=== PATIENT | female | born 1975 | race Caucasian/White ===

== ENCOUNTER 2019-03-20 19:09 | Emergency (ER) | payer SELFPAY ==
[2019-03-20 19:11] VITALS: BP 91/70; PULSE 97; RESP 16; TEMP 36.8; O2SAT 99; BMI 25.7
--- NOTE | 2019-03-20 21:08 | EKG12_ITS ---
Test Reason : CHEST OTHER Blood Pressure : / mmHG Vent. Rate : 069 BPM Atrial Rate : 069 BPM P-R Int : 152 ms QRS Dur : 084 ms QT Int : 412 ms P-R-T Axes : 059 064 067 degrees QTc Int : 441 ms Normal sinus rhythm Possible Left atrial enlargement Borderline ECG Confirmed by TRENA HUTTON, SANGEETHA ([id number]), content editor ARTEMIO GROVES ([id number]) on 03/23/2019 10:02:09 AM Referred By: RUBIO Confirmed By:SANGEETHA ALBRECHT MD
--- NOTE | 2019-03-20 21:08 | RAD_ITS ---
HISTORY:SUDDEN ONSET LEFT RIB PAIN STARTED LAST NIGHTNKI SUDDEN ONSET LEFT RIB PAIN STARTED LAST NIGHTN EXAMINATION/TECHNIQUE: XR Ribs Unilateral W/ PA Chest Min 3 Views: Left COMPARISON: December 31, 2015 FINDINGS: LINES/DEVICES: None. LUNGS: No consolidation, edema or effusion. No pneumothorax. MEDIASTINUM AND CARDIOVASCULAR STRUCTURES: Cardiac silhouette not enlarged. Central airways and mediastinal contour are unremarkable. RIBS AND OSSEOUS STRUCTURES: Unremarkable. No evidence of displaced rib fractures. RAD/Ribs Uni Min 3V w/PA Chest IMPRESSION: No acute pathology at 2217 Reported and signed by: Dimple Quiroz DO Electronically Signed: Dimple Quiroz DO at 22:16 EST Tel , Service support ,
--- NOTE | 2019-03-20 21:09 | ED.VIS.GEN ---
History of Present Illness Chief Complaint: Chest Other Narrative: Patient is a 43-year-old female who presents with left-sided rib pain. It began last night. Her pain is worse when she lifts her arm or rotates her torso. She is not short of breath. She does not recall any fall trauma injury strain. No rash. She otherwise denies recent illness. No fevers cough congestion rhinorrhea. No abdominal pain vomiting diarrhea. Past Medical History - Allergies and Home Meds Allergies/Adverse Reactions: Allergies hydrocodone bitartrate [From Vicodin] Allergy (Verified 03/20/19 19:11) Rash latex Allergy (Verified 03/20/19 19:11) Rash adhesive Adverse Reaction (Verified 03/20/19 19:11) Rash ondansetron HCl [From Zofran (as hydrochloride)] Adverse Reaction (Verified 03/20/19 19:11) headache Primary Care Physician: Care Physician,No Primary [Primary Care Provider] - Past Medical History: - - TIA, seizure disorder Surgical History: no surgical history Smoking Status: Current every day smoker - Family History Maternal Family History: Reports: No pertinent history, - - The patientwas adopted Paternal Family History: Reports: No pertinent history Review of Systems All systems negative except as indicated General: Denies: Fever ENT: Denies: Rhinorrhea Cardiovascular: Reports: Chest pain Respiratory: Denies: Dyspnea, Cough Gastrointestinal: Denies: Abdominal pain, Nausea, Vomiting Genitourinary: Denies: Dysuria Musculoskeletal: Denies: Myalgias, Arthralgias Skin: Denies: Rash Neurological: Denies: Headache Allergy: Denies: Uticaria Physical Exam Vital Signs/Narrative: Vital Signs Temp Pulse Resp BP Pulse Ox 03/20/19 19:11 98.2 F 97 16 91/70 99 Inital Vital Signs reviewed: Yes General: Well nourished, Well developed Head: Normocephalic Eyes: EOMI ENT: Moist mucous membranes Neck: Supple Cardiovascular: Regular rate, Regular rhythm Respiratory: No distress, CTA bilaterally, Chest tenderness - Easily reproducible left lower chest and left posterior chest tenderness no rash no crepitus, lungs are clear with equal breath sounds Abdomen: Soft, Nontender Skin: Normal color Neurological: Alert Psychological: Normal affect Diagnostic/Tx/Re-eval - Medical Decision Making EKG shows normal sinus rhythm at a rate of 69, no acute ischemic changes or dysrhythmia. Rib series with a PA chest is normal on my review, radiology read pending. Patient's pain seems to be musculoskeletal in etiology her pain appears to be from chest wall. She was advised on supportive care. She understands to return for new or worsening symptoms. All questions answered at bedside and the patient was discharged. ED Disposition - Plan for ED Patient: Disposition: Home or Assisted Living Diagnosis: Chest wall pain Instructions: Chest Wall Strain Prescriptions: Naproxen [Naprosyn] 500 mg PO BID #20 tab Prescription Printed Referrals: Care Physician,No Primary [Primary Care Provider] -
[2019-03-20 21:14] VITALS: RESP 16
[2019-03-20 21:52] VITALS: BP 100/69; PULSE 66; RESP 16; O2SAT 95
== END 2019-03-20 21:50 | disposition home or self-care (01) ==
PROVIDERS: Emergency Provider Emergency Medicine
DX: R07.89 Other chest pain (principal); G40.909 Epilepsy, unspecified, not intractable, without status epilepticus; F17.200 Nicotine dependence, unspecified, uncomplicated; Z86.73 Personal history of transient ischemic attack (TIA), and cerebral infarction without residual deficits
CPT/HCPCS: 71101; 93005; 99282

== ENCOUNTER → 2019-08-27 08:46 | Outpatient (CLI) | payer MEDICAID, SELFPAY ==
--- NOTE | 2019-08-27 08:47 | RAD_ITS ---
STUDY: X-RAY - LUMBAR SPINE REASON FOR EXAM: Female, 44 years old. Leg pain, no trauma TECHNIQUE: 4 view(s) of the lumbar spine were obtained including flexion-extension views. COMPARISON: None FINDINGS: There is an exaggerated lumbar lordosis. There is no substantial scoliosis. There is a normal alignment of the vertebrae. Normal vertebral bodies and endplates. Normal disc space heights. The soft tissue structures are unremarkable. RAD/L/S Spine Bending Flex/Ext IMPRESSION: Exaggerated lumbar lordosis. Electronically Signed: Jamar Marshall, at 10:10 EDT , Service support ,
--- NOTE | 2019-08-27 08:47 | RAD_ITS ---
STUDY: X-RAY - LEFT KNEE REASON FOR EXAM: Female, 44 years old. Knee pain, no trauma TECHNIQUE: 4 view(s) of the knee. COMPARISON: None. FINDINGS: Normal visualized distal femur. Normal visualized proximal tibia and fibula. Normal proximal tibiofibular articulation. There is mild degenerative arthrosis of the medial femorotibial compartment. Normal lateral femorotibial compartment. Normal patellofemoral articulation. Joint effusion RAD/Knee 4 or More Views IMPRESSION: Degenerative arthrosis. Joint effusion. Electronically Signed: Jamar Marshall, at 10:08 EDT , Service support ,
--- OUTSIDE RECORDS SUMMARY | 2020-01-09 08:17 | XMS RPT_ITS | CCD ---
:1975 External Reference #:[id number] Author Organization [facility] Care Team Providers Name Role Phone HOUSE OB Unavailable Unavailable HOUSE OB Unavailable Unavailable Shree Hodges Unavailable Unavailable Kathi VARGAS (POT[employer]O PANCAKE FRIER) Unavailable Unavailable Kathi VARGAS (POTATO PANCAKE FRIER) Unavailable Unavailable CEBUL III, A Unavailable Unavailable Kathi VARGAS (POTATO PANCAKE FRIER) Unavailable Unavailable CEBUL III, A Unavailable Unavailable CEBUL III, A Unavailable Unavailable KING (PA) Unavailable Unavailable SOPHY Unavailable Unavailable KING (PA) Unavailable Unavailable GURM, S. Unavailable Unavailable SEABOLT Unavailable Unavailable CEBUL, A III Unavailable Unavailable CEBUL, A III Unavailable Unavailable JEREZ, J Unavailable Unavailable CEBUL, A III Unavailable Unavailable Allergies Reported Allergen Reaction(s) Severity Date of Onset Location acetaminophen / HYDROcodone [facility] 02-02-[address] - [facility] Translations: [ [facility] HYDROCODONE-ACETAMINOPHEN] Adhesive Tape Translations: [facility] 11-02-[address] - [facility] [ ADHESIVE TAPE (ROSINS)] [facility] Latex Translations: [ AO 11-02-2013 [facility] LATEX] [place] [facility] ondansetron Translations: [ AO 07-24-2011 - [facility] ONDANSETRON HCL (PF)] [place] simvastatin Translations: [ AO 03-28-2015 - [facility] SIMVASTATIN] [place] Problems Active Problems Category Problem Name Status Date Location Nausea and vomiting Vomiting, unspecified Active 09-30-2016 - [facility] (0000 0) Unclassified Unknown / UNK(Unknown) Active 09-24-2016 - [facility] (0000 0) Past or Other Problems Category Problem Name Status Date Location Abdominal pain Right upper quadrant Completed 09-30-2016 - [facility] pain [place] (0000 0) Other gastrointestinal Diarrhea, Completed 09-30-2016 - [facility] disorders unspecified [place] (0000 0) Other injuries and Unspecified injury Completed 01-03-2017 - [facility] conditions due to of right lower leg, [facility] ([id number]) external causes initial encounter Unclassified ABD PAIN / NO DX 09-24-2016 - [facility] (000 00) Results Result Name Value Range Unit Interpretation Flag Date Location mri brain w/ + w/o contrast on 2020-01-07 MRI BRAIN W/ + W/O ORIGINAL Normal 01-07-2020 [facility] CONTRAST Procedure: MR Brain with and without intravenous contrast [facility] ([place]) ([id number]) Clinical: Numbness and tingl ing down arms and back, intermittent facial droop and dysarthria, hx TIA Comparison: MRI brain 07/23/2013, 07/20/2011, and CT head Technique: MRI examination o f the brain was obtained utilizing the following sequences: Sagittal and axial T1-weighted, axial T2 weighted FLAIR diffusion with ADC mapping, post contrast axial, and postc ontrast 3-D FSPGR axial, sag ittal, and coronal images. The patient received 14 mL of MultiHance intravenously without complication. Findings: Parenchyma: No acute hemorrh age, infarction, mass, or abnormal enhancement is seen. The hadley-white matter junctions are maintained. There are no space occupying intra-axial masses or extra-axial fluid c ollections . Stable punctate hyperintensities on FLAIR are identified in the subcortical, periventricular, deep white matter. Diagnostic considerations include mild chronic microvascular white matter is chemic disease, chronic migr misael, and the sequela of a remote infectious, inflammatory, or vascular insult in the appropriate clinical setting. Ventricles: No ventricular e nlargement or ventricular effacement. 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 Orbits: Normal. Major intracranial flow voids: Preserved. Paranasal sinuses: Trace muc osal thickening of the posterior RIGHT ethmoid sinus. Mastoids and middle ears: Clear. Bones: Normal. Extracranial soft tissues: Normal. Additional comment: Normal. Impression: 1. No acute intracranial pathology. 2. Stable scattered hyperint ensities on FLAIR located within the subcortical, periventricular, and deep white matter with diagnostic considerations including mild chronic microvascular ischemic disease, migraines, and the sequela of a remote infectious, inflammatory, or vascular insult. Interpreted By: Satish Chávez MD Preliminary Report By: Satish Chávez MD Electronically Signed By: Satish Chávez MD Dictated Date: 01/07/2020 10:44:33 AM Prelim Date: 01/07/2020 10:44:33 AM Sign Date: 01/07/2020 10:52:39 AM Ordering Provider:Yared Nolasco ct spine cervical w/o contrast on 2020-01-06 CT SPINE CERVICAL ORIGINAL Normal 01-06-2020 [facility] Vericept W/O CONTRAST CT SPINE CERVICAL W/O CONTRAST [facility] ([place]) ([id number]) CLINICAL STATEMENT: pain, left arm paresthesias. TECHNIQUE: Multiple-row detector helica l CT examination of the cervical spine without IV contrast. Axial, sagittal, and coronal reconstructed images. This exam was performed acco rding to our departmental dose optimization program, and includes the following measures where applicable: automated exposure control, adjustment of the mAs and/or kVp accord ing to patient size and/or exam, and an iterative reconstr uction algorithm. COMPARISON: CT cervical spine 09/10/2019. FINDINGS: No acute fracture or traumat ic malalignment. The atlantodental and atlantoaxial intervals are preserved. There is no prevertebral soft tissue swelling. Mild degenerative changes. M ultiple lucencies throughout spine are unchanged from prior exams and likely degenerative in nature. The lung apices are unremarkable. IMPRESSION: No change from recent exams. It should be noted that CT c ervical spine is poor sensitivity for paresthesias and chronic cervical pain. Further evaluation with nonemergent MRI of the cervical spine may be considered if there is significant clinical concern. I have personally reviewed t he images of this examination and agree with the resident's findings and interpretation. Interpreted By: Russell Tran DO Preliminary Report By: Wing Riley DO Electronically Signed By: Russell Tran DO Dictated Date: 01/05/2020 10:29:17 PM Prelim Date: 01/05/2020 10:33:49 PM Sign Date: 01/05/2020 10:49:50 PM Ordering Provider:Lee Roajs ct head or brain w/o contrast on 2020-01-06 CT HEAD OR BRAIN ORIGINAL Normal 01-06-2020 [facility] Vericept W/O CONTRAST CT HEAD OR BRAIN W/O CONTRAST [facility] ([place] ([id number]) CLINICAL STATEMENT: INJURY. TECHNIQUE: Axial CT images f rom skull base to vertex without IV contrast. This exam was performed according to our departmental dose optimization program, and includes the following measures where appli cable: automated exposure co ntrol, adjustment of the mAs and/or kVp according to patient size and/or exam, and an iterative reconstruction algorithm. COMPARISON: 09/10/2019.. FINDINGS: There is no acute intracranial hemorrhage, mass, mass effect or abnormal extra-axial fluid collection. There is no CT evidence of acute infarct. The ventricles are normal. The skull base and calvarium demonstrate no abnormality. The visualized paranasal sinuses are clear. Included mastoid air cells are clear. IMPRESSION: No acute intracranial abnormality. Interpreted By: Russell Tran DO Preliminary Report By: Russell Tran DO Electronically Signed By: Russell Tran DO Dictated Date: 01/05/2020 10:29:36 PM Prelim Date: 01/05/2020 10:29:36 PM Sign Date: 01/05/2020 10:30:03 PM Ordering Provider:Lee Rojas xr chest 1 view on 2020-01-05 XR CHEST 1 VIEW ORIGINAL Normal 01-05-2020 [facility] PORT[facility] UPRIGHT CHEST [facility] ([place]) ([id number]) TIME: 2018 CLINICAL STATEMENT: pain. COMPARISON: PA and lateral chest 09/10/2019. FINDINGS: The cardiomediastinal contou rs are normal. There is atelectasis and elevation of the LEFT hemidiaphragm. No focal consolidation, pleural effusion, or pneumothorax. No visualized fractures. IMPRESSION: Basilar atelectasis and elev ation of LEFT hemidiaphragm. Otherwise no acute cardiopulmonary findings. I have personally reviewed t he images of this examination and agree with the resident's findings and interpretation. Interpreted By: Russell Tran DO Preliminary Report By: Wing Riley DO Electronically Signed By: Rsusell Tran DO Dictated Date: 01/05/2020 8:26:19 PM Prelim Date: 01/05/2020 8:27:04 PM Sign Date: 01/05/2020 8:35:55 PM Ordering Provider:Lee Rojas trophs on 2019-12-23 4 Troponin I High <2.50 0.00-34.00 Normal 01-05-2020 [facility] Sensitivity ([facility]) [facility] ([place]) ([id number]) Comment: Performed By: #### UA, UAMIC AO #### [address] [address] cbc on 2020-01-05 Erythrocyte distribution 13.1 11.5-15.5 % Normal 01-04 [facility] width (RBC) [Ratio] [facility] ([place]) ([id number]) Comment: Performed By: #### UA, UAMIC AO #### [address] [address] Hematocrit (Bld) [Volume 38.3 34.0-46.0 % Normal 01-04 [facility] fraction] ([place]) (0000 0) Comment: Performed By: #### UA, UAMIC AO #### [place] [id number] Hemoglobin (Bld) 13.1 12.0-16.0 G/dL Normal 01-05-2020 [facility] [Mass/Vol] [facility] ([place]) ([id number]) Comment: Performed By: #### UA, UAMIC AO #### [address] [address] MCH (RBC) [Entitic mass] 32.4 27.0-33.0 pg Normal 01-04 [facility] ([place] (0000 0) Comment: Performed By: #### UA, UAMIC AO #### [address] [address] MCHC (RBC) [Mass/Vol] 34.3 32.0-36.0 G/dL Normal 01-05-20 20 [facility] ([place] (0000 0) Comment: Performed By: #### UA, UAMIC AO #### [address] [address] MCV (RBC) [Entitic vol] 94.5 80.0-99.0 fL Normal 2019 [facility] ([place] (0000 0) Comment: Performed By: #### UA, UAMIC AO #### [address] [address] Platelet mean volume 9.5 6.6-10.5 fL Normal 0 [facility] (d) [Entitic vol] ([place]) ([id number]) Comment: Performed By: #### UA, UAMIC AO #### [address] [address] Platelets (Bld) [#/Vol] 199 150-450 10 3/mcL Normal 2019 [facility] ([place] ([id number]) Comment: Performed By: #### UA, UAMIC AO #### [address] [address] RBC (Bld) [#/Vol] 4.05 4.10-5.30 10 6/mcL Low 01-05-2020 [facility] ([place]) (0000 0) Comment: Performed By: #### UA, UAMIC AO #### [address] [address] WBC (Bld) [#/Vol] 6.00 4.50-10.80 10 3/mcL Normal 01-05-2020 [facility] ([place]) ([id number]) Comment: Performed By: #### UA, UAMIC AO #### [address] [address] bmp on 2020-01-05 Calcium [Mass/Vol] 9.3 8.4-10.1 mg/dL Normal 01-05-2020 [facility] ([place] (0000 0) Comment: Result Comment: Note - New Reference Range in effect 19 Performed By: #### UA, UAMIC AO #### [address] [address] Chloride [Moles/Vol] 109 98-110 mEq/L Normal 0 [facility] ([place] (0000 0) Comment: Performed By: #### UA, UAMIC AO #### [address] [address] CO2 [Moles/Vol] 26 22-32 mEq/L Normal 01-05-2020 [facility] ([place]) ([id number]) Comment: Performed By: #### UA, UAMIC AO #### [address] [address] Creatinine [Mass/Vol] 0.74 0.50-1.20 mg/dL Normal 01-05-20 [facility] ([place]) ([id number]) Comment: Performed By: #### UA, UAMIC AO #### [address] [address] Electrolyte Balance 8.0 4.0-15.0 mEq/L Normal 01-05-2020 [facility] ([place]) (0000 0) Comment: Performed By: #### UA, UAMIC AO #### [address] [address] Glucose [Mass/Vol] 114 70-110 mg/dL High 01-05-2020 [facility] ([place] ([id number]) Comment: Performed By: #### UA, UAMIC AO #### [address] [address] Potassium [Moles/Vol] 3.6 3.5-5.0 mEq/L Normal 01-05-20 [facility] ([place] (0000 0) Comment: Performed By: #### UA, UAMIC AO #### [address] [address] Sodium [Moles/Vol] 143 136-145 mEq/L Normal 01-05-2020 [facility] ([place] ([id number]) Comment: Performed By: #### UA, UAMIC AO #### [address] [address] Urea nitrogen [Mass/Vol] 12.0 8.0-22.0 mg/dL Normal 01-04 [facility] ([place]) ([id number]) Comment: Performed By: #### UA, UAMIC AO #### [address] [address] Urea nitrogen/Creatinine 16.2 10.0-22.0 ratio Normal 01-04 [facility] [Mass ratio] [facility] ([place]) ([id number]) Comment: Performed By: #### UA, UAMIC AO #### [address] [address] .neuabs on Neutrophils (Bld) 2.30 2.25-8.10 10 3/mcL Normal 01-05-2020 [facility] [#/Vol] [facility] ([place]) ([id number]) Comment: Performed By: #### UA, UAMIC AO #### [facility] [address] [place] [address] .gfr on 2020-01-05 GFR >60 Normal 0 [facility] ([place]) ([id number]) Comment: Result Comment: GFR Population mean for Afri can Samoan, Non- Americans Ages 20-29 = 116 mL/min/1.73 sq.m. Ages 30-39 = 107 mL/min/1.73 sq.m. Ages 40-49 = 99 mL/min/1.73 sq.m. Ages 50-59 = 93 mL/min/1.73 sq.m. Ages 60-69 = 85 mL/min/1.73 sq.m. Ages 70+ = 75 mL/min/1.73 sq .m. Chronic Kidney Disease: Less than 60 mL/min/1.73 square meters End Stage Renal Disease: Les s than 15 mL/min/1.73 square meters Performed By: #### UA, UAMIC AO #### [facility] [address] [place] [address] GFR Non- >60 Normal 01-04 [facility] ([place] ([id number]) Comment: Result Comment: GFR Population mean for Afri can Samoan, Non- Americans Ages 20-29 = 116 mL/min/1.73 sq.m. Ages 30-39 = 107 mL/min/1.73 sq.m. Ages 40-49 = 99 mL/min/1.73 sq.m. Ages 50-59 = 93 mL/min/1.73 sq.m. Ages 60-69 = 85 mL/min/1.73 sq.m. Ages 70+ = 75 mL/min/1.73 sq .m. Chronic Kidney Disease: Less than 60 mL/min/1.73 square meters End Stage Renal Disease: Les s than 15 mL/min/1.73 square meters Performed By: #### UA, UAMIC AO #### [address] [address] .auto diff on 01-04 Ammonia (P) [Mass/Vol] 0.60 0.09-1.40 10 3/mcL Normal 01-04-2 020 [facility] ([place] ([id number]) Comment: Performed By: #### UA UAMIC AO #### [address] [address] Basophils (Bld) 0.10 0.00-0.27 10 3/mcL Normal 01-05-2020 [facility] [#/Vol] [facility] ([place] ([id number]) Comment: Performed By: #### UA, UAMIC AO #### [address] [address] Basophils/100 WBC (Bld) 1.0 0.0-2.5 % Normal 2019 [facility] [place] (0000 0) Comment: Performed By: #### UA UAMIC AO #### [address] [address] Eosinophils (Bld) 0.20 0.00-0.65 10 3/mcL Normal 01-05-2020 [facility] [#/Vol] [facility] ([place] ([address]) Comment: Performed By: #### UA, UAMIC AO #### [address] [address] Eosinophils/100 WBC (Bld) 3.0 0.0-6.0 % Normal 12-22 [facility] ([place] (0000 0) Comment: Performed By: #### UA, UAMIC AO #### [address] [address] Lymphocytes (Bld) 2.80 0.90-4.32 10 3/mcL Normal 01-05-2020 [facility] [#/Vol] [facility] ([place] ([id number]) Comment: Performed By: #### UA, UAMIC AO #### [address] [address] Lymphocytes/100 WBC (Bld) 46.9 20.0-40.0 % High 12-22 [facility] ([place] (0000 0) Comment: Performed By: #### UA, UAMIC AO #### [facility] [address] [place] [address] Monocytes/100 WBC (Bld) 9.8 2.0-13.0 % Normal 2019 [facility] ([place] (0000 0) Comment: Performed By: #### UA, UAMIC AO #### [facility] [address] [place] [address] Neutrophils/100 WBC (Bld) 39.3 50.0-75.0 % Low 12-22 [facility] ([place] (0000 0) Comment: Performed By: #### UA, UAMIC AO #### [facility] [address] [place] [address] xr abdomen series w/chest 1 view on 2019-12-22 XR ABDOMEN SERIES ORIGINAL Normal 12-22-2019 [facility] W/CHEST 1 VIEW XR ABDOMEN SERIES W/CHEST 1 VIEW [facility] ([place] ([id number]) CLINICAL STATEMENT: Abdominal pain, distention, nausea x3 da ys COMPARISON: CT abdomen/pelvis 02/16/2019 FINDINGS: CHEST: The cardiomediastinal contours are normal. There is no consolidation, vascular congestion, pleural effusion, or pneumothorax. ABDOMEN: Small segment in th e midabdomen measures up to 3.5 cm, there is also a dilated segment of bowel in the LEFT upper quadrant measuring up to 3.4 cm. Visceral shadows are normal. RIGHT upper quadr ant surgical clips are noted . There are no renal calculi or dystrophic calcifications. No pneumoperitoneum. IMPRESSION: Segments of small bowel are dilated measuring up to 3.5 cm, this could represent partial or early small bowel obstruction. I have personally reviewed t he images of this examination and agree with the resident's findings and interpretation. Interpreted By: Wild Stewart MD Preliminary Report By: Sarah Nazario DO Electronically Signed By: Wild Stewart MD Dictated Date: 12/22/2019 7:15:24 PM Prelim Date: 12/22/2019 7:16:49 PM Sign Date: 12/22/2019 8:08:27 PM Ordering Provider:Russell Velásquez us abdomen complete on 2019-12-22 US ABDOMEN ORIGINAL Normal 12-22-2019 [facility] COMPLETE US ABDOMEN COMPLETE [facility] ([place]) ([id number]) CLINICAL STATEMENT: abdominal pain RLQ COMPARISON: None FINDINGS: The liver is normal in size and echogenicity. There is no intra or extrahepatic bile duct dilatation. The common duct is 3.0 mm at the jenna hepatis. The gallbladder is normally distended without calculus, wall thickening or tenderness. The visualized pancreas is unremarkable although its tail portion is not well seen. The spleen is normal in size an d echogenicity, measuring 10.5 x 10.1 x 2.8 cm. No ascites. The visualized kidneys show no pelvicaliectasis. The RIGHT kidney measures 11.1 x 4.3 x 4.3 cm and the LEFT kidney measures 11.2 x 4.2 x 4.5 cm. Visualized IVC and aorta are not abnormally dilated. IMPRESSION: Normal ultrasound of the abdomen. Interpreted By: Wild Stewart MD Preliminary Report By: Wild Stewart MD Electronically Signed By: Wild Stewart MD Dictated Date: 12/22/2019 8:26:20 PM Prelim Date: 12/22/2019 8:26:20 PM Sign Date: 12/22/2019 8:28:54 PM Ordering Provider:Russell Velásquez ua on 2019-12-22 Color (U) Straw Normal 12-22-2019 [facility] ([place]) ([id number]) Comment: Performed By: #### UA, UAMIC AO #### [address] [address] Glucose (U) [Mass/Vol] Negative Negative mg/dL Normal 020 [facility] ([place] ([id number]) Comment: Performed By: #### UA, UAMIC AO #### [facility] [address] [place] [address] Ketones Ql (U) Negative Neg-Trace Normal 12-22-2019 [facility]) (68413) Comment: Performed By: #### UA, UAMIC AO #### [facility] [address] [place] [address] UA Appear Clear Normal 12-22-2019 [facility]) (48511) Comment: Performed By: #### UA, UAMIC AO #### [address] [address] UA Blood Trace Neg-Trace Normal 12-22-2019 [facility] ([place]) ([id number]) Comment: Performed By: #### UA, UAMIC AO #### [address] [address] UA Leuk Est Negative Negative Normal 12-22-2019 [facility] ([place] ([id number]) Comment: Performed By: #### UA, UAMIC AO #### [address] [address] UA Nitrite Negative Negative Normal 12-22-2019 [facility] [place] ([id number]) Comment: Performed By: #### UA, UAMIC AO #### [address] [address] UA pH 5.5 5.0 - 8.0 Normal 12-22-2019 [facility] ([place] (28832) Comment: Performed By: #### UA, UAMIC AO #### [address] [address] UA Protein Negative Negative Normal 12-22-2019 [facility] ([place] ([id number]) Comment: Performed By: #### UA, UAMIC AO #### [address] [address] UA Spec Grav 1.015 Normal 12-22-2019 [facility] ([place]) ([id number]) Comment: Performed By: #### UA, UAMIC AO #### [address] [address] UA Specimen Type Clean Catch Normal 12-22-2019 [facility] [place] ([id number]) Comment: Performed By: #### UA, UAMIC AO #### [address] [address] UA Urobilinogen 0.2 E.U./dL Normal 12-22-2019 [facility] ([place] ([id number]) Comment: Performed By: #### UA, UAMIC AO #### [address] [address] Urobilinogen Qn (U) Negative Neg-Trace Normal 12-22-2019 [facility] ([place] (0000 0) Comment: Performed By: #### UA, UAMIC AO #### [address] [address] lip on 2019-12-22 Lipase Level 27 12-53 U/L Normal 12-22-2019 [facility] ([place]) ([address]01) Comment: Result Comment: Note - New Reference Range in effect 19 Performed By: #### UA, UAMIC AO #### [address] [address] cmp on 2019-12-22 Albumin [Mass/Vol] 3.9 3.2-4.8 G/dL Normal 12-22-2019 [facility] ([place] ([id number]) Comment: Performed By: #### UA, UAMIC AO #### [place] [id number] Albumin/Globulin [Mass 1.1 0.9-1.6 ratio Normal 020 [facility]] [facility] ([place] ([id number]) Comment: Performed By: #### UA, UAMIC AO #### [address] [address] ALP [Catalytic activity/Vol] 115 38-126 U/L Normal 0 12-22-2019 [facility] ([place] ([id number]) Comment: Performed By: #### UA, UAMIC AO #### [place] [id number] ALT [Catalytic activity/Vol] 25 10-49 U/L Normal 0 12-22-2019 [facility] ([place] (0000 0) Comment: Performed By: #### UA, UAMIC AO #### [address] [address] AST [Catalytic activity/Vol] 18 8-34 U/L Normal 0 12-22-2019 [facility] ([place] (0000 0) Comment: Performed By: #### UA, UAMIC AO #### [place] [address] Bili Total 0.3 0.2-1.2 mg/dL Normal 12-22-2019 [facility] ([place] ([id number]) Comment: Result Comment: Use of this assay is not recommended for patients undergoing treatment with eltrombopag d ue to the potential for falsely elevated results. Performed By: #### UA, UAMIC AO #### [address] [address] Calcium [Mass/Vol] 9.6 8.4-10.1 mg/dL Normal 12-22-2019 [facility] ([place] (0000 0) Comment: Result Comment: Note - New Reference Range in effect 19 Performed By: #### UA, UAMIC AO #### [address] [address] Chloride [Moles/Vol] 105 98-110 mEq/L Normal 0 [facility] ([place] (0000 0) Comment: Performed By: #### UA, UAMIC AO #### [address] [address] CO2 [Moles/Vol] 28 22-32 mEq/L Normal 12-22-2019 [facility] ([place] ([id number]) Comment: Performed By: #### UA, UAMIC AO #### [address] [address] Creatinine [Mass/Vol] 0.84 0.50-1.20 mg/dL Normal 12-22-19 20 [facility] [place] ([id number]) Comment: Performed By: #### UA, UAMIC AO #### [address] [address] Electrolyte Balance 7.0 4.0-15.0 mEq/L Normal 12-22-2019 [facility] [place] (0000 0) Comment: Performed By: #### UA, UAMIC AO #### [address] [address] Globulin (S) [Mass/Vol] 3.5 1.5-3.8 G/dL Normal 2019 [facility] ([place] (0000 0) Comment: Performed By: #### UA, UAMIC AO #### [address] [address] Glucose [Mass/Vol] 84 70-110 mg/dL Normal 12-22-2019 [facility] ([place] ([id number]) Comment: Performed By: #### UA, UAMIC AO #### [address] [address] Potassium [Moles/Vol] 3.8 3.5-5.0 mEq/L Normal 12-22-19 [facility] ([place]) (0000 0) Comment: Performed By: #### UA, UAMIC AO #### [address] [address] Protein [Mass/Vol] 7.4 6.0-8.5 G/dL Normal 12-22-2019 [facility] ([place]) ([id number]) Comment: Result Comment: Note - New Reference Range in effect 19 Performed By: #### UA, UAMIC AO #### [address] [address] Sodium [Moles/Vol] 140 136-145 mEq/L Normal 12-22-2019 [facility] ([place] ([id number]) Comment: Performed By: #### UA, UAMIC AO #### [address] [address] Urea nitrogen [Mass/Vol] 11.0 8.0-22.0 mg/dL Normal 12-21 [facility] ([place] ([id number]) Comment: Performed By: #### UA, UAMIC AO #### [address] [address] Urea nitrogen/Creatinine 13.1 10.0-22.0 ratio Normal 12-21 [facility] [Mass ratio] [facility] ([place] (75315) Comment: Performed By: #### UA, UAMIC AO #### [address] [address] cbc on 2019-12-22 Erythrocyte distribution 12.5 11.5-15.5 % Normal 12-21 [facility] width (RBC) [Ratio] [facility] ([place]) (36339) Comment: Performed By: #### CBC, ADIF F, ANEU #### [place] [address] #### LIP, CMP, GFR #### [address] [address] Hematocrit (Bld) [Volume 38.0 34.0-46.0 % Normal 12-21 [facility] fraction] ([place]) (0000 0) Comment: Performed By: #### CBC, ADIF F, ANEU #### [place] [address] #### LIP, CMP, GFR #### [address] [address] Hemoglobin (Bld) 13.1 12.0-16.0 G/dL Normal 12-22-2019 [facility] [Mass/Vol] [place] ([id number]) Comment: Performed By: #### CBC, ADIF F, ANEU #### [place] [address] #### LIP, CMP, GFR #### [address] [address] MCH (RBC) [Entitic mass] 31.8 27.0-33.0 pg Normal 12-21 [facility] ([place]) (0000 0) Comment: Performed By: #### CBC, ADIF F, ANEU #### [place] [address] #### LIP, CMP, GFR #### [address] [address] MCHC (RBC) [Mass/Vol] 34.4 32.0-36.0 G/dL Normal 12-22-19 20 [facility] ([place]) (0000 0) Comment: Performed By: #### CBC, ADIF F, ANEU #### [place] [address] #### LIP, CMP, GFR #### [address] [address] MCV (RBC) [Entitic vol] 92.6 80.0-99.0 fL Normal 2019 [facility] ([place]) (0000 0) Comment: Performed By: #### CBC, ADIF F, ANEU #### [place] [address] #### LIP, CMP, GFR #### [address] [address] Platelet mean volume 8.8 6.6-10.5 fL Normal 0 [facility] ([place]) [Entitic vol] ([place]) ([id number]) Comment: Performed By: #### CBC, ADIF F, ANEU #### [place] [address] #### LIP, CMP, GFR #### [address] [address] Platelets (Bld) [#/Vol] 212 150-450 10 3/mcL Normal 2019 [facility] ([place]) ([id number]) Comment: Performed By: #### CBC, ADIF F, ANEU #### [place] [address] #### LIP, CMP, GFR #### [address] [address] RBC (Bld) [#/Vol] 4.10 4.10-5.30 10 6/mcL Normal 12-22-2019 A [facility] ([place]) (0000 0) Comment: Performed By: #### CBC, ADIF F, ANEU #### [place] [address] #### LIP, CMP, GFR #### [address] [address] WBC (Bld) [#/Vol] 8.70 4.50-10.80 10 3/mcL Normal 12-22-2019 [facility] ([place]) ([id number]) Comment: Performed By: #### CBC, ADIF F, ANEU #### [place] [address] #### LIP, CMP, GFR #### [address] [address] .neuabs on Neutrophils (Bld) 4.90 2.25-8.10 10 3/mcL Normal 12-22-2019 A [facility] [#/Vol] [facility] ([place]) ([id number]) Comment: Performed By: #### UA, UAMIC AO #### [address] [address] .gfr on 2019-12-22 GFR >60 Normal 0 [facility] ([place]) ([id number]) Comment: Result Comment: GFR Population mean for Afri can Samoan, Non- Americans Ages 20-29 = 116 mL/min/1.73 sq.m. Ages 30-39 = 107 mL/min/1.73 sq.m. Ages 40-49 = 99 mL/min/1.73 sq.m. Ages 50-59 = 93 mL/min/1.73 sq.m. Ages 60-69 = 85 mL/min/1.73 sq.m. Ages 70+ = 75 mL/min/1.73 sq .m. Chronic Kidney Disease: Less than 60 mL/min/1.73 square meters End Stage Renal Disease: Les s than 15 mL/min/1.73 square meters Performed By: #### UA, UAMIC AO #### [address] [address] GFR Non- >60 Normal 12-21 [facility] ([place]) ([id number]) Comment: Result Comment: GFR Population mean for Afri can Samoan, Non- Americans Ages 20-29 = 116 mL/min/1.73 sq.m. Ages 30-39 = 107 mL/min/1.73 sq.m. Ages 40-49 = 99 mL/min/1.73 sq.m. Ages 50-59 = 93 mL/min/1.73 sq.m. Ages 60-69 = 85 mL/min/1.73 sq.m. Ages 70+ = 75 mL/min/1.73 sq .m. Chronic Kidney Disease: Less than 60 mL/min/1.73 square meters End Stage Renal Disease: Les s than 15 mL/min/1.73 square meters Performed By: #### UA, UAMIC AO #### [address] [address] .auto diff on 12-21 Ammonia (P) [Mass/Vol] 0.80 0.09-1.40 10 3/mcL Normal 12-21- 020 [facility] ([place]) ([id number]) Comment: Performed By: #### CBC, ADIF F, ANEU #### [address] [address] #### LIP, CMP, GFR #### [address] [address] Basophils (Bld) 0.10 0.00-0.27 10 3/mcL Normal 12-22-2019 [facility] [#/Vol] [facility] ([place]) ([id number]) Comment: Performed By: #### CBC, ADIF F, ANEU #### [place] [address] #### LIP, CMP, GFR #### [address] [address] Basophils/100 WBC (Bld) 0.6 0.0-2.5 % Normal 2019 [facility] ([place]) (0000 0) Comment: Performed By: #### CBC, ADIF F, ANEU #### [place] [address] #### LIP, CMP, GFR #### [address] [address] Eosinophils (Bld) 0.10 0.00-0.65 10 3/[facility] Normal 12-22-2019 [facility] [#/Vol] [facility] ([place]) ([id number]) Comment: Performed By: #### CBC, ADIF F, ANEU #### [place] [address] #### LIP, CMP, GFR #### [address] [address] Eosinophils/100 WBC (Bld) 1.2 0.0-6.0 % Normal 11-24 [facility] ([place]) (0000 0) Comment: Performed By: #### CBC, ADIF F, ANEU #### [address] [address] #### LIP, CMP, GFR #### [address] [address] Lymphocytes (Bld) 2.80 0.90-4.32 10 3/mcL Normal 12-22-2019 [facility] [#/Vol] [facility] ([place]) ([id number]) Comment: Performed By: #### CBC, ADIF F, ANEU #### [address] [address] #### LIP, CMP, GFR #### [address] [address] Lymphocytes/100 WBC (Bld) 31.8 20.0-40.0 % Normal 11-24 [facility] ([place]) ([id number]) Comment: Performed By: #### CBC, ADIF F, ANEU #### [address] [address] #### LIP, CMP, GFR #### [address] [address] Monocytes/100 WBC (Bld) 9.7 2.0-13.0 % Normal 2019 [facility] ([place]) (0000 0) Comment: Performed By: #### CBC, ADIF F, ANEU #### [address] [address] #### LIP, CMP, GFR #### [address] [address] Neutrophils/100 WBC (Bld) 56.7 50.0-75.0 % Normal 11-24 [facility] ([place]) ([id number]) Comment: Performed By: #### CBC, ADIF F, ANEU #### [address] [address] #### LIP, CMP, GFR #### [address] [address] xr chest 2 views on 2019-09-10 XR CHEST 2 VIEWS ORIGINAL Normal 09-10-2019 [facility] XR CHEST 2 VIEWS [facility] ([place]) ([id number]) CLINICAL STATEMENT: Chest Pain. COMPARISON: 05/05/2019 No focal consolidation, angelique estion, pleural effusion, or pneumothorax is seen. The cardiomediastinal silhouette and hilar contours are unremarkable. IMPRESSION: No acute process. Interpreted By: Rolf Trivedi DO Preliminary Report By: Rolf Trivedi DO Electronically Signed By: Rolf Trivedi DO Dictated Date: 09/10/2019 11:59:13 AM Prelim Date: 09/10/2019 11:59:13 AM Sign Date: 09/10/2019 11:59:46 AM Ordering Provider:Arya dias on 2019-09-10 Troponin I.cardiac <0.020 0.000-0.040 ng/mL Normal 0 [facility] [Mass/Vol] [place] ([id number]) Comment: Result Comment: Troponin I r eference range: 0.00-0.040 ng/mL Negative an d non-diagnostic. >0.040 ng/mL Consistent with cardiac damage, increased clinical risk and possibility of myocardial in farction. Serial measurements, a rise & fall in test results, clinical histo ry, appropriate symptoms and/or ECG changes may help assess possibility of LA. *Other non-acute coronary sy ndrome conditions such as CHF, myoc arditis, pulmonary emboli, sepsis and cardiac surgery could result in myoc ardial damage and increased troponi n levels. Performed By: #### CBC, ADIF F, ANEU #### [facility] [address] [place] [address] #### LIP, CMP, GFR #### [address] [address] pro on 2019-09-10 INR Coag (PPP) [Relative 1.1 0.9-1.2 ratio Normal 09-09 [facility] time] ([place]) (0000 0) Comment: Result Comment: Standard Dos e 2.0 - 3.0 High Dose 2.5 - 3.5 The recommended therapeutic range for oral anticoagulant therapy is: LOW RISK: Prophylaxis of florian ous thrombosis INR: 2.0 - 3.0 Treatment of pulmonary embol ism 2.0 - 3.0 Prevention of systemic embol ism 2.0 - 3.0 HIGH RISK: Mechanical prosth etic valves 2.5 - 3.5 Performed By: #### CBC, ADIF F, ANEU #### [address] [address] #### LIP, CMP, GFR #### [facility] [address] [place] [address] PT Coag (PPP) [Time] 12.3 9.0-14.3 seconds Normal 0 [facility] ([place]) ([id number]) Comment: Performed By: #### CBC, ADIF F, ANEU #### [address] [address] #### LIP, CMP, GFR #### [address] [address] mg on 2019-09-10 Magnesium [Mass/Vol] 1.8 1.8-2.4 mg/dL Normal 0 [facility] ([place]) (0000 0) Comment: Performed By: #### CBC, ADIF F, ANEU #### [address] [address] #### LIP, CMP, GFR #### [facility] [address] [place] [address] spine cervical w/o contrast on 2019-09-10 CT SPINE CERVICAL ORIGINAL Normal 09-10-2019 A [facility] W/O CONTRAST CT SPINE CERVICAL W/O CONTRAST [facility] ([place]) ([id number]) CLINICAL STATEMENT: left nec k pain with radiculopathy, numbness and tingling of the LEFT side of neck for 2 days. TECHNIQUE: Multiple-row dete ctor helical CT examination of the cervical spine without IV contrast. Axial, sagittal, and coronal reconstructed images. This exam was performed according to our departmenta l dose optimization program, and includes the following measures where applicable: automated exposure control, adjustment of the mAs and/or kVp according to patient size and/or exam, and an iterative reconstruction algorithm. COMPARISON: 07/22/2016 FINDINGS: No fracture or tra umatic malalignment. Vertebral body heights are maintained. No aggressive osseous lesions are identified. There are mild degenerative changes which would be better characterized by MRI in the absence of contraindication. No severe canal stenosis identified. There is at least mild bony canal stenosis on the LEFT at C3-C4 and C4-C5. The prevertebral and paraspi nal soft tissues demonstrate no acute abnormality. Atherosclerotic calcifications are present at the carotid bifurcations. IMPRESSION: No acute fractur e or traumatic malalignment. Mild degenerative changes which could be better characterized by MRI in the absence of a contraindication an continued clinical concern. Interpreted By: Wellington Talley MD Preliminary Report By: Wellington Talley MD Electronically Signed By: Wellington Talley MD Dictated Date: 09/10/2019 11:55:51 AM Prelim Date: 09/10/2019 11:55:51 AM Sign Date: 09/10/2019 12:07:36 PM Ordering Provider:Arya Child ct head or brain w/o contrast on 2019-09-10 CT HEAD OR BRAIN ORIGINAL Normal 09-10-2019 [facility] W/O CONTRAST CLINICAL INDICATION: Numbnes s and tingling LEFT side of head and neck for 2 days. [facility] ([place]) ([id number]) TECHNIQUE: CT head without contrast. COMPARISON: CT head 03/31/2019 FINDINGS: No evidence of acute transco rtical infarct, intracranial hemorrhage, or mass effect. No hydrocephalus or extra-axial collection. The visualized orbital contents are normal. The paranasal sinuses, masto id air cells, and soft tissues and osseous structures are normal. IMPRESSION: No acute intracranial process. Interpreted By: Abimael Valdivia Preliminary Report By: Abimael Valdivia Electronically Signed By: Abimael Valdivia Dictated Date: 09/10/2019 11:52:08 AM Prelim Date: 09/10/2019 11:52:08 AM Sign Date: 09/10/2019 11:57:22 AM Ordering Provider:Arya Child cbc on 2019-09-10 Erythrocyte distribution 13.1 11.5-14.5 % Normal 09-09 [facility] width (RBC) [Ratio] [facility] ([place]) ([id number]) Comment: Performed By: #### CBC, ADIF F, ANEU #### [facility] [address] [place], [place] [address] #### LIP, CMP, GFR #### [address] [address] Hematocrit (Bld) [Volume 40.0 37.0-47.0 % Normal 09-09 [facility] fraction] ([place]) (0000 0) Comment: Performed By: #### CBC, ADIF F, ANEU #### [address] [address] #### LIP, CMP, GFR #### [address] [address] Hemoglobin (Bld) 13.4 12.0-16.0 G/dL Normal 09-10-2019 [facility] [Mass/Vol] [place] [facility] [place] ([id number]) Comment: Performed By: #### CBC, ADIF F, ANEU #### [address] [address] #### LIP, CMP, GFR #### [address] [address] MCH (RBC) [Entitic mass] 31.9 27.0-31.2 pg High 09-09 [facility] ([place]) (0000 0) Comment: Performed By: #### CBC, ADIF F, ANEU #### [address] [address] #### LIP, CMP, GFR #### [address] [address] MCHC (RBC) [Mass/Vol] 33.5 33.0-37.0 G/dL Normal 09-10-19 20 [facility] ([place]) (0000 0) Comment: Performed By: #### CBC, ADIF F, ANEU #### [place] [address] #### LIP, CMP, GFR #### [address] [address] MCV (RBC) [Entitic vol] 95.1 80.0-94.0 fL High 2019 [facility] ([place]) (0000 0) Comment: Performed By: #### CBC, ADIF F, ANEU #### [place] [address] #### LIP, CMP, GFR #### [address] [address] Platelet mean volume 9.3 7.4-10.4 fL Normal 0 [facility] (d) [Entitic vol] ([place]) ([id number]) Comment: Performed By: #### CBC, ADIF F, ANEU #### [address] [address] #### LIP, CMP, GFR #### [address] [address] Platelets (Bld) [#/Vol] 230 130-400 10 3/mcL Normal 2019 [facility] ([place]) ([id number]) Comment: Performed By: #### CBC, ADIF F, ANEU #### [address] [address] #### LIP, CMP, GFR #### [address] [address] RBC (Bld) [#/Vol] 4.21 4.20-5.40 10 6/mcL Normal 09-10-2019 A [facility] ([place]) (0000 0) Comment: Performed By: #### CBC, ADIF F, ANEU #### [address] [address] #### LIP, CMP, GFR #### [address] [address] WBC (Bld) [#/Vol] 8.90 4.60-10.80 10 3/mcL Normal 09-10-2019 [facility] ([place]) ([id number]) Comment: Performed By: #### CBC, ADIF F, ANEU #### [address] [address] #### LIP, CMP, GFR #### [address] [address] bmp on 2019-09-10 Calcium [Mass/Vol] 8.8 8.4-10.2 mg/dL Normal 09-10-2019 [facility] ([place]) (0000 0) Comment: Performed By: #### CBC, ADIF F, ANEU #### [address] [address] #### LIP, CMP, GFR #### [address] [address] Chloride [Moles/Vol] 106 98-107 mmol/L Normal 0 [facility] ([place]) (0000 0) Comment: Performed By: #### CBC, ADIF F, ANEU #### [address] [address] #### LIP, CMP, GFR #### [address] [address] CO2 [Moles/Vol] 22 22-29 mmol/L Normal 09-10-2019 [facility] ([place]) (16589) Comment: Performed By: #### CBC, ADIF F, ANEU #### [place] [address] #### LIP, CMP, GFR #### [address] [address] Creatinine [Mass/Vol] 0.96 0.55-1.02 mg/dL Normal 09-10-19 20 [facility] ([place]) ([id number]) Comment: Performed By: #### CBC, ADIF F, ANEU #### [place] [id number] #### LIP, CMP, GFR #### [address] [address] Electrolyte Balance 12.0 mEq/L Normal 09-10-2019 [facility] ([place]) ([id number]) Comment: Performed By: #### CBC, ADIF F, ANEU #### [address] [address] #### LIP, CMP, GFR #### [address] [address] Glucose [Mass/Vol] 108 70-105 mg/dL High 09-10-2019 [facility] ([place]) ([id number]) Comment: Performed By: #### CBC, ADIF F, ANEU #### [place] [id number] #### LIP, CMP, GFR #### [address] [address] Potassium [Moles/Vol] 3.6 3.5-5.1 mmol/L Normal 09-10-19 [facility] ([place]) (0000 0) Comment: Performed By: #### CBC, ADIF F, ANEU #### [address] [address] #### LIP, CMP, GFR #### [address] [address] Sodium [Moles/Vol] 140 136-145 mmol/L Normal 09-10-2019 [facility] ([place]) (0000 0) Comment: Performed By: #### CBC, ADIF F, ANEU #### [address] [address] #### LIP, CMP, GFR #### [address] [address] Urea nitrogen [Mass/Vol] 16 7-18 mg/dL Normal 09-09 [facility] ([place]) (0000 0) Comment: Performed By: #### CBC, ADIF F, ANEU #### [address] [address] #### LIP, CMP, GFR #### [address] [address] Urea nitrogen/Creatinine [Mass 17 7-27 ratio Normal 09-10-2019 [facility] ([place]) ([id number]) Comment: Performed By: #### CBC, ADIF F, ANEU #### [address] [address] #### LIP, CMP, GFR #### [address] [address] .neuabs on Neutrophils (Bld) 5.60 2.85-6.16 10 3/mcL Normal 09-10-2019 [facility] [#/Vol] [facility] ([place]) ([id number]) Comment: Performed By: #### CBC, ADIF F, ANEU #### [address] [address] #### LIP, CMP, GFR #### [address] [address] .gfr on 2019-09-10 GFR Non- 63 ml/min/1.73sqm Normal 09-10-2019 [facility] ([place]) (55075) Comment: Result Comment: GFR Population mean for Afri can Samoan, Non- Americans Ages 20-29 = 116 mL/min/1.73 sq.m. Ages 30-39 = 107 mL/min/1.73 sq.m. Ages 40-49 = 99 mL/min/1.73 sq.m. Ages 50-59 = 93 mL/min/1.73 sq.m. Ages 60-69 = 85 mL/min/1.73 sq.m. Ages 70+ = 75 mL/min/1.73 sq .m. Chronic Kidney Disease: Less than 60 mL/min/1.73 square meters End Stage Renal Disease: Les s than 15 mL/min/1.73 square meters Performed By: #### CBC, ADIF F, ANEU #### [address] [address] #### LIP, CMP, GFR #### [address] [address] GFR 76 ml/min/1.73sqm Normal 08-22 [facility] ([place]) (0000 0) Comment: Result Comment: GFR Population mean for Afri can Samoan, Non- Americans Ages 20-29 = 116 mL/min/1.73 sq.m. Ages 30-39 = 107 mL/min/1.73 sq.m. Ages 40-49 = 99 mL/min/1.73 sq.m. Ages 50-59 = 93 mL/min/1.73 sq.m. Ages 60-69 = 85 mL/min/1.73 sq.m. Ages 70+ = 75 mL/min/1.73 sq .m. Chronic Kidney Disease: Less than 60 mL/min/1.73 square meters End Stage Renal Disease: Les s than 15 mL/min/1.73 square meters Performed By: #### CBC, ADIF F, ANEU #### [place] [address] #### LIP, CMP, GFR #### [address] [address] .auto diff on 09-09 Ammonia (P) [Mass/Vol] 0.60 0.15-1.00 10 3/mcL Normal 09-09- 020 [facility] ([place]) ([id number]) Comment: Performed By: #### CBC, ADIF F, ANEU #### [place] [address] #### LIP, CMP, GFR #### [address] [address] Basophils (Bld) 0.10 0.00-0.19 10 3/mcL Normal 09-10-2019 [facility] [#/Vol] [facility] ([place]) (43593) Comment: Performed By: #### CBC, ADIF F, ANEU #### [place] [address] #### LIP, CMP, GFR #### [address] [address] Basophils/100 WBC (Bld) 1.0 0.0-2.5 % Normal 2019 [facility] ([place]) (0000 0) Comment: Performed By: #### CBC, ADIF F, ANEU #### [place] [address] #### LIP, CMP, GFR #### [address] [address] Eosinophils (Bld) 0.20 0.00-0.40 10 3/mcL Normal 09-10-2019 [facility] [#/Vol] [facility] ([place]) ([id number]) Comment: Performed By: #### CBC, ADIF F, ANEU #### [place] [address] #### LIP, CMP, GFR #### [address] [address] Eosinophils/100 WBC (Bld) 2.1 0.0-7.0 % Normal 08-22 [facility] ([place]) (0000 0) Comment: Performed By: #### CBC, ADIF F, ANEU #### [address] [address] #### LIP, CMP, GFR #### [address] [address] Lymphocytes (Bld) 2.40 0.77-3.85 10 3/mcL Normal 09-10-2019 [facility] [#/Vol] [facility] ([place]) ([id number]) Comment: Performed By: #### CBC, ADIF F, ANEU #### [address] [address] #### LIP, CMP, GFR #### [address] [address] Lymphocytes/100 WBC (Bld) 26.9 10.0-50.0 % Normal 08-22 [facility] ([place]) ([id number]) Comment: Performed By: #### CBC, ADIF F, ANEU #### [address] [address] #### LIP, CMP, GFR #### [address] [address] Monocytes/100 WBC (Bld) 6.7 1.7-13.0 % Normal 2019 [facility] ([place]) (0000 0) Comment: Performed By: #### CBC, ADIF F, ANEU #### [address] [address] #### LIP, CMP, GFR #### [address] [address] Neutrophils/100 WBC (Bld) 63.3 37.0-80.0 % Normal 08-22 [facility] ([place]) ([id number]) Comment: Performed By: #### CBC, ADIF F, ANEU #### [address] [address] #### LIP, CMP, GFR #### [address] [address] xr knee three views left on 2019-08-10 XR KNEE THREE ORIGINAL Normal 08-10-2019 [facility] VIEWS LEFT XR KNEE THREE VIEWS LEFT [facility] ([place]) ([id number]) CLINICAL STATEMENT: Pain. COMPARISON: 06/25/2016 FINDINGS: Tricompartment ost eoarthritic degenerative changes are most evident within medial and patellofemoral compartments, stable from previous. Suprapatellar joint effusion is again suggested. No acu te fracture or dislocation i s identified. The joint spaces are otherwise maintained. There is no radiopaque foreign body. IMPRESSION: Osteoarthritis with joint effusion. No acute fracture or dislocation. Interpreted By: Chapincito Agudelo Preliminary Report By: Chapincito Agudelo Electronically Signed By: Chapincito Agudelo Dictated Date: 08/10/2019 4:41:55 PM Prelim Date: 08/10/2019 4:41:55 PM Sign Date: 08/10/2019 4:46:08 PM Ordering Provider:Betito Linares final surgical pathology report on 2019-05-17 Final Surgical . Normal 05-17-2019 [facility] Pathology Report Pathology Reports [facility] ([place]) Accession: Collected Date/Time: Received Date/Time: Patholog ist: ([id number]) [id number] 05/13/2019 14:35 EST 05/14/2019 08:38 EST MD NOEMI BUSH Final Surgical Pathology Report DIAGNOSIS: GALLBLADDER, CHOLECYSTECTOMY: CHRONIC CHOLECYSTITIS. COMMENT: [facility] - D# [id number] CLINICAL INFORMATION: Procedure: LAPAROSCOPIC CHOLECYSTECTOMY Preoperative diagnosis: BILIARY DYSKINESIA, CHOLECYSTITIS Postoperative diagnosis: SAME SPECIMEN: A GALLBLADDER GROSS DESCRIPTION: Received- formalin Labeled- gallbladder Dimensions-previously opened, 10 x 2.5 x 1.1 cm Cystic duct-present Serosal surface-yellow and fatty, smooth Luminal contents-small amoun t of yellow viscid bile, no choleliths grossly identified Mucosal surface-yellow, velvety Wall thickness-fatty, up to 0.7 cm RS- 1 Dictated by Daisy WEBER ([facility]) MICROSCOPIC DESCRIPTION: Slides reviewed. Electronically Signed by Pathology Report verified by [facility] Electronically signed by NOEMI BUSH MD Sign out Date: 05/17/2019 11:37 Performing Lab: [facility], [address] [place] [address] Comment: Performed By: #### CBC, ADIF F, ANEU #### [address] [address] #### LIP, CMP, GFR #### [address] [address] xr chest 2 views on 2019-05-05 XR CHEST 2 VIEWS ORIGINAL Normal 05-05-2019 [facility] XR CHEST 2 VIEWS [facility] ([place]) ([id number]) CLINICAL STATEMENT: Asthma, Shortness of breath, Preop. COMPARISON: 12/16/2016 FINDINGS: The cardiomediasti nal silhouette is normal. No focal consolidation, pleural effusion, vascular congestion, or pneumothorax. No acute osseous findings seen. A nodular density projecting over th e LEFT anterior 4th rib may represent a healing fractu re but is nonspecific. IMPRESSION: Nodular density projecting over the RIGHT anterior 4th rib may represent healing fracture. Short-term interval follow-up two-view chest x-ray in 3 months recommended to exclude pulmonary nodule. Interpreted By: Wellington Talley MD Preliminary Report By: Wellington Talley MD Electronically Signed By: Wellington Talley MD Dictated Date: 05/05/2019 2:10:57 PM Prelim Date: 05/05/2019 2:10:57 PM Sign Date: 05/05/2019 2:12:58 PM Ordering Provider:Panda bonner on 2019-04-24 Lipase Level 112 73-393 U/L Normal 04-24-2019 [facility] ([place]) ([id number]) Comment: Performed By: #### CBC, ADIF F, ANEU #### [address] [address] #### LIP, CMP, GFR #### [address] [address] cmp on 2019-04-24 Albumin [Mass/Vol] 4.0 3.5-5.0 G/dL Normal 04-24-2019 [facility] ([place]) ([id number]) Comment: Performed By: #### CBC, ADIF F, ANEU #### [address] [address] #### LIP, CMP, GFR #### [address] [address] Albumin/Globulin [Mass 1.3 1.1-2.5 ratio Normal 020 [facility]] [facility]) ([id number]) Comment: Performed By: #### CBC, ADIF F, ANEU #### [place] [address] #### LIP, CMP, GFR #### [address] [address] ALP [Catalytic activity/Vol] 121 40-135 U/L Normal 0 04-24-2019 [facility] ([place]) ([id number]) Comment: Performed By: #### CBC, ADIF F, ANEU #### [place] [address] #### LIP, CMP, GFR #### [place] [address] ALT [Catalytic activity/Vol] 19 10-35 U/L Normal 0 04-24-2019 [facility] ([place]) (0000 0) Comment: Performed By: #### CBC, ADIF F, ANEU #### [place] [address] #### LIP, CMP, GFR #### [place] [address] AST [Catalytic activity/Vol] 10 10-40 U/L Normal 0 04-24-2019 [facility] ([place]) (0000 0) Comment: Performed By: #### CBC, ADIF F, ANEU #### [place] [address] #### LIP, CMP, GFR #### [place] [address] Bili Total 0.3 0.2-1.0 mg/dL Normal 04-24-2019 [facility] ([place]) ([id number]) Comment: Performed By: #### CBC, ADIF F, ANEU #### [place] [address] #### LIP, CMP, GFR #### [place] [address] Calcium [Mass/Vol] 9.4 8.4-10.2 mg/dL Normal 04-24-2019 [facility] ([place]) (0000 0) Comment: Performed By: #### CBC, ADIF F, ANEU #### [address] [address] #### LIP, CMP, GFR #### [address] [address] Chloride [Moles/Vol] 107 98-107 mmol/L Normal 0 [facility] ([place]) (0000 0) Comment: Performed By: #### CBC, ADIF F, ANEU #### [address] [address] #### LIP, CMP, GFR #### [address] [address] CO2 [Moles/Vol] 27 22-29 mmol/L Normal 04-24-2019 [facility] ([place]) ([id number]) Comment: Performed By: #### CBC, ADIF F, ANEU #### [place] [id number] #### LIP, CMP, GFR #### [address] [address] Creatinine [Mass/Vol] 0.91 0.55-1.02 mg/dL Normal 04-24-19 20 [facility] [facility] ([id number]) Comment: Performed By: #### CBC, ADIF F, ANEU #### [place] [address] #### LIP, CMP, GFR #### [address] [address] Electrolyte Balance 8.0 mEq/L Normal 04-24-2019 [facility] [place] (14747) Comment: Performed By: #### CBC, ADIF F, ANEU #### [place] [id number] #### LIP, CMP, GFR #### [address] [address] Globulin (S) [Mass/Vol] 3.1 G/dL Normal 2019 [facility] [place] ([id number]) Comment: Performed By: #### CBC, ADIF F, ANEU #### [address] [address] #### LIP, CMP, GFR #### [address] [address] Glucose [Mass/Vol] 99 70-105 mg/dL Normal 04-24-2019 [facility] [place] (45795) Comment: Performed By: #### CBC, ADIF F, ANEU #### [place] [address] #### LIP, CMP, GFR #### [address] [address] Potassium [Moles/Vol] 4.1 3.5-5.1 mmol/L Normal 04-24-19 [facility] ([place]) (0000 0) Comment: Performed By: #### CBC, ADIF F, ANEU #### [place] [address] #### LIP, CMP, GFR #### [address] [address] Protein [Mass/Vol] 7.1 6.4-8.2 G/dL Normal 04-24-2019 [facility] [place] ([id number]) Comment: Performed By: #### CBC, ADIF F, ANEU #### [place] [address] #### LIP, CMP, GFR #### [address] [address] Sodium [Moles/Vol] 142 136-145 mmol/L Normal 04-24-2019 [facility] ([place] (0000 0) Comment: Performed By: #### CBC, ADIF F, ANEU #### [place] [address] #### LIP, CMP, GFR #### [address] [address] Urea nitrogen [Mass/Vol] 18 7-18 mg/dL Normal 04-24 [facility] ([place]) (0000 0) Comment: Performed By: #### CBC, ADIF F, ANEU #### [place] [address] #### LIP, CMP, GFR #### [address] [address] Urea nitrogen/Creatinine [Mass 20 7-27 ratio Normal 04-24-2019 [facility] ratio] [facility] ([place]) ([id number]) Comment: Performed By: #### CBC, ADIF F, ANEU #### [place] [address] #### LIP, CMP, GFR #### [address] [address] cbc on 2019-04-24 Erythrocyte distribution 13.1 11.5-14.5 % Normal 04-24 [facility] width (RBC) [Ratio] [facility] ([place]) (46687) Comment: Performed By: #### CBC, ADIF F, ANEU #### [place] [address] #### LIP, CMP, GFR #### [address] [address] Hematocrit (Bld) [Volume 37.8 37.0-47.0 % Normal 04-24 [facility] fraction] ([place]) (0000 0) Comment: Performed By: #### CBC, ADIF F, ANEU #### [place] [address] #### LIP, CMP, GFR #### [address] [address] Hemoglobin (Bld) 13.1 12.0-16.0 G/dL Normal 04-24-2019 [facility] [Mass/Vol] [facility] [place] (07767) Comment: Performed By: #### CBC, ADIF F, ANEU #### [place] [address] #### LIP, CMP, GFR #### [address] [address] MCH (RBC) [Entitic mass] 31.7 27.0-31.2 pg High 04-24 [facility] ([place]) (0000 0) Comment: Performed By: #### CBC, ADIF F, ANEU #### [place] [address] #### LIP, CMP, GFR #### [address] [address] MCHC (RBC) [Mass/Vol] 34.7 33.0-37.0 G/dL Normal 04-24-19 20 [facility] ([place] (0000 0) Comment: Performed By: #### CBC, ADIF F, ANEU #### [place] [address] #### LIP, CMP, GFR #### [address] [address] MCV (RBC) [Entitic vol] 91.3 80.0-94.0 fL Normal 2019 [facility] ([place]) (0000 0) Comment: Performed By: #### CBC, ADIF F, ANEU #### [place] [address] #### LIP, CMP, GFR #### [address] [address] Platelet mean volume 9.4 7.4-10.4 fL Normal 0 [facility] ([place]) [Entitic vol] ([place]) ([id number]) Comment: Performed By: #### CBC, ADIF F, ANEU #### [place] [address] #### LIP, CMP, GFR #### [address] [address] Platelets (Bld) [#/Vol] 201 130-400 10 3/mcL Normal 2019 [facility] ([place]) ([id number]) Comment: Performed By: #### CBC, ADIF F, ANEU #### [place] [address] #### LIP, CMP, GFR #### [address] [address] RBC (Bld) [#/Vol] 4.14 4.20-5.40 10 6/mcL Low 04-24-2019 [facility] ([place]) (0000 0) Comment: Performed By: #### CBC, ADIF F, ANEU #### [address] [address] #### LIP, CMP, GFR #### [address] [address] WBC (Bld) [#/Vol] 8.00 4.60-10.80 10 3/mcL Normal 04-24-2019 [facility] ([place] ([id number]) Comment: Performed By: #### CBC, ADIF F, ANEU #### [address] [address] #### LIP, CMP, GFR #### [address] [address] .neuabs on Neutrophils (Bld) 4.20 2.85-6.16 10 3/mcL Normal 04-24-2019 [facility] [#/Vol] [facility] ([place]) (13941) Comment: Performed By: #### CBC, ADIF F, ANEU #### [address] [address] #### LIP, CMP, GFR #### [address] [address] .gfr on 2019-04-24 GFR 81 ml/min/1.73sqm Normal 02-0 [facility] ([place]) (0000 0) Comment: Result Comment: GFR Population mean for Afri can Samoan, Non- Americans Ages 20-29 = 116 mL/min/1.73 sq.m. Ages 30-39 = 107 mL/min/1.73 sq.m. Ages 40-49 = 99 mL/min/1.73 sq.m. Ages 50-59 = 93 mL/min/1.73 sq.m. Ages 60-69 = 85 mL/min/1.73 sq.m. Ages 70+ = 75 mL/min/1.73 sq .m. Chronic Kidney Disease: Less than 60 mL/min/1.73 square meters End Stage Renal Disease: Les s than 15 mL/min/1.73 square meters Performed By: #### CBC, ADIF F, ANEU #### [address] [address] #### LIP, CMP, GFR #### [address] [address] GFR Non- 67 ml/min/1.73sqm Normal 04-24-2019 [facility] ([place]) (02735) Comment: Result Comment: GFR Population mean for Afri can Samoan, Non- Americans Ages 20-29 = 116 mL/min/1.73 sq.m. Ages 30-39 = 107 mL/min/1.73 sq.m. Ages 40-49 = 99 mL/min/1.73 sq.m. Ages 50-59 = 93 mL/min/1.73 sq.m. Ages 60-69 = 85 mL/min/1.73 sq.m. Ages 70+ = 75 mL/min/1.73 sq .m. Chronic Kidney Disease: Less than 60 mL/min/1.73 square meters End Stage Renal Disease: Les s than 15 mL/min/1.73 square meters Performed By: #### CBC, ADIF F, ANEU #### [address] [address] #### LIP, CMP, GFR #### [address] [address] .auto diff on 04-24 Ammonia (P) [Mass/Vol] 0.80 0.15-1.00 10 3/mcL Normal 020 [facility] ([place] (60472) Comment: Performed By: #### CBC, ADIF F, ANEU #### [address] [address] #### LIP, CMP, GFR #### [address] [address] Basophils (Bld) 0.10 0.00-0.19 10 3/mcL Normal 04-24-2019 [facility] [#/Vol] [facility] ([place]) (15032) Comment: Performed By: #### CBC, ADIF F, ANEU #### [address] [address] #### LIP, CMP, GFR #### [address] [address] Basophils/100 WBC (Bld) 0.8 0.0-2.5 % Normal 2019 [facility] ([place]) (0000 0) Comment: Performed By: #### CBC, ADIF F, ANEU #### [place] [address] #### LIP, CMP, GFR #### [address] [address] Eosinophils (Bld) 0.10 0.00-0.40 10 3/mcL Normal 04-24-2019 [facility] [#/Vol] [facility] ([place]) (52005) Comment: Performed By: #### CBC, ADIF F, ANEU #### [place] [address] #### LIP, CMP, GFR #### [address] [address] Eosinophils/100 WBC (Bld) 1.5 0.0-7.0 % Normal [facility] ([place]) (0000 0) Comment: Performed By: #### CBC, ADIF F, ANEU #### [place] [address] #### LIP, CMP, GFR #### [address] [address] Lymphocytes (Bld) 2.80 0.77-3.85 10 3/mcL Normal 04-24-2019 [facility] [#/Vol] [facility] ([place]) (19942) Comment: Performed By: #### CBC, ADIF F, ANEU #### [place] [address] #### LIP, CMP, GFR #### [address] [address] Lymphocytes/100 WBC (Bld) 34.8 10.0-50.0 % Normal [facility] [place] (13937) Comment: Performed By: #### CBC, ADIF F, ANEU #### [address] [address] #### LIP, CMP, GFR #### [facility] [address] [place] [address] Monocytes/100 WBC (Bld) 9.7 1.7-13.0 % Normal 2019 [facility] ([place]) (0000 0) Comment: Performed By: #### CBC, ADIF F, ANEU #### [address] [address] #### LIP, CMP, GFR #### [facility] [address] [place] [address] Neutrophils/100 WBC (Bld) 53.2 37.0-80.0 % Normal [facility] ([place] (00674) Comment: Performed By: #### CBC, ADIF F, ANEU #### [address] [address] #### LIP, CMP, GFR #### [address] [address] nm hepatobiliary duct system imaging on 2019-04-22 NM HEPATOBILIARY ORIGINAL Normal 04-22-2019 [facility] DUCT SYSTEM IMAGING NM HEPATOBILIARY Scan with CCK stimulation [facility]) ([id number]) CLINICAL STATEMENT: RUQ pain Technique: Radiopharmaceutical: Tc-99m Mebrofenin Dose: 6.6 mCi IV Dynamic anterior imaging of the liver Sincalide CCK Dose: 1.5 mcg IV infusion 30 minute additional dynamic study and GBEF calculation FINDINGS: There is prompt no rmal hepatic uptake. No apparent focal cold defect is seen in the liver. The biliary tree, common bile duct, gallbladder, and small bowel are all visualized within the normal time range. The gallbladder contracts adequately to CCK stimulation. The calculated gallbladder ejection fraction is 63% (normal = or > than 35%). Mild enterogastric reflux of bile is noted after CCK stimulation. IMPRESSION: Normal gallbladder filling and contraction. Mild enterogastric reflux of bile, which can be seen in asymptomatic patients, but this is more often seen in the setting of underlying gallbladder/biliary disease. This can also cause symptoms from bile gastritis. Interpreted By: Rolf Trivedi DO Preliminary Report By: Rolf Trivedi DO Electronically Signed By: Rolf Trivedi DO Dictated Date: 04/22/2019 4:03:38 PM Prelim Date: 04/22/2019 4:03:38 PM Sign Date: 04/22/2019 4:05:58 PM Ordering Provider:Yared Nolasco cmp on 2019-04-07 Albumin/Globulin [Mass 1.1 0.9-1.6 ratio Normal [facility]] [facility] ([place]) ([id number]) Comment: Performed By: #### CBC, ADIF F, ANEU #### [place] [address] #### LIP, CMP, GFR #### [place] [address] ALP [Catalytic activity/Vol] 116 38-126 U/L Normal 0 04-07-2019 [facility] ([place]) (03193) Comment: Performed By: #### CBC, ADIF F, ANEU #### [place] [address] #### LIP, CMP, GFR #### [place] [address] Bili Total 0.4 0.2-1.2 mg/dL Normal 04-07-2019 [facility] ([place]) (29899) Comment: Performed By: #### CBC, ADIF F, ANEU #### [place] [address] #### LIP, CMP, GFR #### [place] [address] Creatinine [Mass/Vol] 0.75 0.50-1.20 mg/dL Normal 04-07-19 [facility] ([place] (69657) Comment: Performed By: #### CBC, ADIF F, ANEU #### [place] [address] #### LIP, CMP, GFR #### [address] [address] Globulin (S) [Mass/Vol] 3.5 1.5-3.8 G/dL Normal 2019 [facility] ([place]) (0000 0) Comment: Performed By: #### CBC, ADIF F, ANEU #### [address] [address] #### LIP, CMP, GFR #### [address] [address] Protein [Mass/Vol] 7.3 6.0-8.5 G/dL Normal 04-07-2019 [facility] ([place]) ([id number]) Comment: Performed By: #### CBC, ADIF F, ANEU #### [address] [address] #### LIP, CMP, GFR #### [address] [address] Urea nitrogen/Creatinine 12.0 10.0-22.0 ratio Normal 04-07 [facility] [Mass ratio] [facility] [place] (25243) Comment: Performed By: #### CBC, ADIF F, ANEU #### [address] [address] #### LIP, CMP, GFR #### [address] [address] Albumin [Mass/Vol] 3.8 3.2-4.8 G/dL Normal 04-07-2019 [facility] ([place]) (73587) Comment: Performed By: #### CBC, ADIF F, ANEU #### [address] [address] #### LIP, CMP, GFR #### [address] [address] ALT [Catalytic activity/Vol] 24 10-49 U/L Normal 0 04-07-2019 [facility] ([place]) (0000 0) Comment: Performed By: #### CBC, ADIF F, ANEU #### [address] [address] #### LIP, CMP, GFR #### [address] [address] AST [Catalytic activity/Vol] 16 8-34 U/L Normal 0 04-07-2019 [facility] ([place]) (0000 0) Comment: Performed By: #### CBC, ADIF F, ANEU #### [place] [address] #### LIP, CMP, GFR #### [address] [address] Calcium [Mass/Vol] 9.2 8.4-10.1 mg/dL Normal 04-07-2019 [facility] ([place]) (0000 0) Comment: Performed By: #### CBC, ADIF F, ANEU #### [place] [address] #### LIP, CMP, GFR #### [place] [address] Chloride [Moles/Vol] 112 98-110 mEq/L High 0 [facility] ([place] (27142) Comment: Performed By: #### CBC, ADIF F, ANEU #### [place] [address] #### LIP, CMP, GFR #### [address] [address] CO2 [Moles/Vol] 25 22-32 mEq/L Normal 04-07-2019 [facility] ([place]) (34355) Comment: Performed By: #### CBC, ADIF F, ANEU #### [place] [address] #### LIP, CMP, GFR #### [address] [address] Electrolyte Balance 5.0 4.0-15.0 mEq/L Normal 04-07-2019 [facility] ([place]) (0000 0) Comment: Performed By: #### CBC, ADIF F, ANEU #### [place] [address] #### LIP, CMP, GFR #### [address] [address] Glucose [Mass/Vol] 86 70-110 mg/dL Normal 04-07-2019 [facility] [place] (99838) Comment: Performed By: #### CBC, ADIF F, ANEU #### [address] [address] #### LIP, CMP, GFR #### [address] [address] Potassium [Moles/Vol] 3.8 3.5-5.0 mEq/L Normal 04-07-19 [facility] ([place]) (0000 0) Comment: Performed By: #### CBC, ADIF F, ANEU #### [address] [address] #### LIP, CMP, GFR #### [address] [address] Sodium [Moles/Vol] 142 136-145 mEq/L Normal 04-07-2019 [facility] ([place] (52117) Comment: Performed By: #### CBC, ADIF F, ANEU #### [address] [address] #### LIP, CMP, GFR #### [address] [address] Urea nitrogen [Mass/Vol] 9.0 8.0-22.0 mg/dL Normal 04-07 [facility] ([place] (17067) Comment: Performed By: #### CBC, ADIF F, ANEU #### [address] [address] #### LIP, CMP, GFR #### [address] [address] cbc on 2019-04-07 WBC (Bld) [#/Vol] 6.80 4.50-10.80 10 3/mcL Normal 04-07-2019 [facility] ([place] (52280) Comment: Performed By: #### CBC, ADIF F, ANEU #### [place] [address] #### LIP, CMP, GFR #### [address] [address] Platelet mean volume 10.6 6.6-10.5 fL High 0 [facility] (Bld) [Entitic vol] ([place]) (71680) Comment: Performed By: #### CBC, ADIF F, ANEU #### [place] [address] #### LIP, CMP, GFR #### [address] [address] Platelets (Bld) [#/Vol] 280 150-450 10 3/mcL Normal 2019 [facility] ([place] (60874) Comment: Performed By: #### CBC, ADIF F, ANEU #### [place] [address] #### LIP, CMP, GFR #### [place] [address] Erythrocyte distribution 13.6 11.5-15.5 % Normal 04-07 [facility] (RBC) [Ratio] [facility] ([place]) (70702) Comment: Performed By: #### CBC, ADIF F, ANEU #### [place] [address] #### LIP, CMP, GFR #### [place] [id number] Hematocrit (Bld) [Volume 39.3 34.0-46.0 % Normal 04-07 [facility] fraction] ([place]) (0000 0) Comment: Performed By: #### CBC, ADIF F, ANEU #### [place] [address] #### LIP, CMP, GFR #### [address] [address] Hemoglobin (Bld) 13.3 12.0-16.0 G/dL Normal 04-07-2019 [facility] [Mass/Vol] [facility] [place] (67989) Comment: Performed By: #### CBC, ADIF F, ANEU #### [place] [address] #### LIP, CMP, GFR #### [address] [address] MCH (RBC) [Entitic mass] 31.4 27.0-33.0 pg Normal 04-07 [facility] ([place]) (0000 0) Comment: Performed By: #### CBC, ADIF F, ANEU #### [place] [address] #### LIP, CMP, GFR #### [address] [address] MCHC (RBC) [Mass/Vol] 34.0 32.0-36.0 G/dL Normal 04-07-19 [facility] ([place]) (0000 0) Comment: Performed By: #### CBC, ADIF F, ANEU #### [place] [address] #### LIP, CMP, GFR #### [place] [address] MCV (RBC) [Entitic vol] 92.5 80.0-99.0 fL Normal 2019 [facility] ([place]) (0000 0) Comment: Performed By: #### CBC, ADIF F, ANEU #### [place] [address] #### LIP, CMP, GFR #### [place] [address] RBC (Bld) [#/Vol] 4.25 4.10-5.30 10 6/mcL Normal 04-07-2019 [facility] ([place]) (0000 0) Comment: Performed By: #### CBC, ADIF F, ANEU #### [place] [address] #### LIP, CMP, GFR #### [place] [address] .neuabs on 2020-01- 15 Neutrophils (Bld) 4.20 2.25-8.10 10 3/mcL Normal 04-07-2019 [facility] [#/Vol] [facility] ([place]) (22471) Comment: Performed By: #### CBC, ADIF F, ANEU #### [place] [address] [place], [place] [address] #### LIP, CMP, GFR #### [address] [address] .gfr on 2019-04-07 GFR Non- >60 Normal 04-07 [facility] ([place]) (13891) Comment: Result Comment: GFR Population mean for Afri can Samoan, Non- Americans Ages 20-29 = 116 mL/min/1.73 sq.m. Ages 30-39 = 107 mL/min/1.73 sq.m. Ages 40-49 = 99 mL/min/1.73 sq.m. Ages 50-59 = 93 mL/min/1.73 sq.m. Ages 60-69 = 85 mL/min/1.73 sq.m. Ages 70+ = 75 mL/min/1.73 sq .m. Chronic Kidney Disease: Less than 60 mL/min/1.73 square meters End Stage Renal Disease: Les s than 15 mL/min/1.73 square meters Performed By: #### CBC, ADIF F, ANEU #### [place] [address] [place], [place] [address] #### LIP, CMP, GFR #### [address] [address] GFR >60 Normal 0 [facility] ([place]) ([id number]) Comment: Result Comment: GFR Population mean for Afri can Samoan, Non- Americans Ages 20-29 = 116 mL/min/1.73 sq.m. Ages 30-39 = 107 mL/min/1.73 sq.m. Ages 40-49 = 99 mL/min/1.73 sq.m. Ages 50-59 = 93 mL/min/1.73 sq.m. Ages 60-69 = 85 mL/min/1.73 sq.m. Ages 70+ = 75 mL/min/1.73 sq .m. Chronic Kidney Disease: Less than 60 mL/min/1.73 square meters End Stage Renal Disease: Les s than 15 mL/min/1.73 square meters Performed By: #### CBC, ADIF F, ANEU #### [place] [address] #### LIP, CMP, GFR #### [address] [address] .auto diff on 04-07 Ammonia (P) [Mass/Vol] 0.40 0.09-1.40 10 3/mcL Normal 020 [facility] ([place] ([id number]) Comment: Performed By: #### CBC, ADIF F, ANEU #### [place] [address] #### LIP, CMP, GFR #### [place] [address] Basophils (Bld) 0.00 0.00-0.27 10 3/mcL Normal 04-07-2019 [facility] [#/Vol] [facility] ([place]) (23752) Comment: Performed By: #### CBC, ADIF F, ANEU #### [place] [address] #### LIP, CMP, GFR #### [place] [address] Basophils/100 WBC (Bld) 0.5 0.0-2.5 % Normal 2019 [facility] ([place]) (0000 0) Comment: Performed By: #### CBC, ADIF F, ANEU #### [place] [address] #### LIP, CMP, GFR #### [place] [address] Eosinophils (Bld) 0.10 0.00-0.65 10 3/mcL Normal 04-07-2019 [facility] [#/Vol] [facility] ([place]) (81037) Comment: Performed By: #### CBC, ADIF F, ANEU #### [place] [address] #### LIP, CMP, GFR #### [address] [address] Eosinophils/100 WBC (Bld) 1.3 0.0-6.0 % Normal 03-24 [facility] ([place]) (0000 0) Comment: Performed By: #### CBC, ADIF F, ANEU #### [place] [address] #### LIP, CMP, GFR #### [address] [address] Lymphocytes (Bld) 2.00 0.90-4.32 10 3/mcL Normal 04-07-2019 [facility] [#/Vol] [facility] ([place]) (10232) Comment: Performed By: #### CBC, ADIF F, ANEU #### [place] [address] #### LIP, CMP, GFR #### [address] [address] Lymphocytes/100 WBC (Bld) 29.9 20.0-40.0 % Normal 03-24 [facility] ([place]) (48046) Comment: Performed By: #### CBC, ADIF F, ANEU #### [place] [address] #### LIP, CMP, GFR #### [address] [address] Monocytes/100 WBC (Bld) 6.2 2.0-13.0 % Normal 2019 [facility] ([place]) (0000 0) Comment: Performed By: #### CBC, ADIF F, ANEU #### [place] [address] #### LIP, CMP, GFR #### [address] [address] Neutrophils/100 WBC (Bld) 62.1 50.0-75.0 % Normal 03-24 [facility] ([place]) (41229) Comment: Performed By: #### CBC, ADIF F, ANEU #### [address] [address] #### LIP, CMP, GFR #### [facility] [address] [place] [address] ua on 2019-04-05 Color (U) Yellow Normal 04-05-2019 [facility] ([place]) ([id number]) Comment: Performed By: #### CBC, ADIF F, ANEU #### [place] [address] #### LIP, CMP, GFR #### [address] [address] Glucose (U) [Mass/Vol] Negative Negative mg/dL Normal 020 [facility] ([place]) (73283) Comment: Performed By: #### CBC, ADIF F, ANEU #### [address] [address] #### LIP, CMP, GFR #### [address] [address] Ketones Ql (U) Negative Negative Normal 04-05-2019 [facility] ([place]) (05366) Comment: Performed By: #### CBC, ADIF F, ANEU #### [address] [address] #### LIP, CMP, GFR #### [address] [address] UA Appear Clear Clear Normal 04-05-2019 [facility] ([place]) (48432) Comment: Performed By: #### CBC, ADIF F, ANEU #### [address] [address] #### LIP, CMP, GFR #### [facility] [address] [place] [address] UA Blood Trace Negative Abnormal 04-05-2019 [facility] ([place]) (19821) Comment: Performed By: #### CBC, ADIF F, ANEU #### [address] [address] #### LIP, CMP, GFR #### [address] [address] UA Leuk Est Negative Negative Normal 04-05-2019 [facility] ([place]) ([id number]) Comment: Performed By: #### CBC, ADIF F, ANEU #### [address] [address] #### LIP, CMP, GFR #### [address] [address] UA Nitrite Negative Negative Normal 04-05-2019 [facility] ([place]) (54541) Comment: Performed By: #### CBC, ADIF F, ANEU #### [address] [address] #### LIP, CMP, GFR #### [place] [address] UA pH 6.0 5.0 - 8.0 Normal 04-05-2019 [facility] ([place]) (50126) Comment: Performed By: #### CBC, ADIF F, ANEU #### [place] [address] #### LIP, CMP, GFR #### [place] [address] UA Protein Negative Negative Normal 04-05-2019 [facility] ([place]) (29961) Comment: Performed By: #### CBC, ADIF F, ANEU #### [place] [address] #### LIP, CMP, GFR #### [place] [address] UA Spec Grav 1.010 1.015-1.025 Abnormal 04-05-2019 [facility] ([place]) ([id number]) Comment: Performed By: #### CBC, ADIF F, ANEU #### [place] [address] #### LIP, CMP, GFR #### [place] [address] UA Specimen Type Clean Catch Normal 04-05-2019 [facility] ([place]) ([id number]) Comment: Performed By: #### CBC, ADIF F, ANEU #### [address] [address] #### LIP, CMP, GFR #### [address] [address] UA Urobilinogen 0.2 0.2-1.0 E.U./dL Normal 04-05-2019 [facility] ([place]) (28638) Comment: Performed By: #### CBC, ADIF F, ANEU #### [place] [address] #### LIP, CMP, GFR #### [address] [address] Urobilinogen Qn (U) Negative Negative Normal 04-05-2019 [facility] ([place]) (0000 0) Comment: Performed By: #### CBC, ADIF F, ANEU #### [place] [address] #### LIP, CMP, GFR #### [address] [address] lip on 2019-04-05 Lipase Level 113 73-393 U/L Normal 04-05-2019 [facility] ([place]) ([id number]) Comment: Performed By: #### CBC, ADIF F, ANEU #### [place] [address] #### LIP, CMP, GFR #### [address] [address] cmp on 2019-04-05 Albumin [Mass/Vol] 3.9 3.5-5.0 G/dL Normal 04-05-2019 [facility] ([place]) (81789) Comment: Performed By: #### CBC, ADIF F, ANEU #### [place] [address] #### LIP, CMP, GFR #### [address] [address] Albumin/Globulin [Mass 1.2 1.1-2.5 ratio Normal [address] [place] [address]] [facility] ([place]) (76002) Comment: Performed By: #### CBC, ADIF F, ANEU #### [place] [address] #### LIP, CMP, GFR #### [address] [address] ALP [Catalytic activity/Vol] 127 40-135 U/L Normal 0 04-05-2019 [facility] ([place]) (86032) Comment: Performed By: #### CBC, ADIF F, ANEU #### [place] [address] #### LIP, CMP, GFR #### [place] [address] ALT [Catalytic activity/Vol] 22 10-35 U/L Normal 0 04-05-2019 [facility] ([place]) (0000 0) Comment: Performed By: #### CBC, ADIF F, ANEU #### [place] [address] #### LIP, CMP, GFR #### [place] [address] AST [Catalytic activity/Vol] 13 10-40 U/L Normal 0 04-05-2019 [facility] ([place]) (0000 0) Comment: Performed By: #### CBC, ADIF F, ANEU #### [place] [address] #### LIP, CMP, GFR #### [place] [address] Bili Total 0.3 0.2-1.0 mg/dL Normal 04-05-2019 [facility] ([place]) (95046) Comment: Performed By: #### CBC, ADIF F, ANEU #### [place] [address] #### LIP, CMP, GFR #### [place] [address] Calcium [Mass/Vol] 9.2 8.4-10.2 mg/dL Normal 04-05-2019 [facility] ([place]) (0000 0) Comment: Performed By: #### CBC, ADIF F, ANEU #### [address] [address] #### LIP, CMP, GFR #### [address] [address] Chloride [Moles/Vol] 104 98-107 mmol/L Normal 0 [facility] ([place]) (0000 0) Comment: Performed By: #### CBC, ADIF F, ANEU #### [place] [address] #### LIP, CMP, GFR #### [address] [address] CO2 [Moles/Vol] 25 22-29 mmol/L Normal 04-05-2019 [facility] ([place]) ([id number]) Comment: Performed By: #### CBC, ADIF F, ANEU #### [place] [address] #### LIP, CMP, GFR #### [address] [address] Creatinine [Mass/Vol] 0.86 0.55-1.02 mg/dL Normal 04-05-19 20 [facility] ([place] ([id number]) Comment: Performed By: #### CBC, ADIF F, ANEU #### [address] [address] #### LIP, CMP, GFR #### [address] [address] Electrolyte Balance 11.0 mEq/L Normal [facility] [place] ([id number]) Comment: Performed By: #### CBC, ADIF F, ANEU #### [address] [address] #### LIP, CMP, GFR #### [address] [address] Globulin (S) [Mass/Vol] 3.3 G/dL Normal 2019 [facility] [place] ([id number]) Comment: Performed By: #### CBC, ADIF F, ANEU #### [address] [address] #### LIP, CMP, GFR #### [address] [address] Glucose [Mass/Vol] 91 70-105 mg/dL Normal 04-05-2019 [facility] [place] ([id number]) Comment: Performed By: #### CBC, ADIF F, ANEU #### [address] [address] #### LIP, CMP, GFR #### [address] [address] Potassium [Moles/Vol] 3.8 3.5-5.1 mmol/L Normal 04-05-19 [facility] ([place] (0000 0) Comment: Performed By: #### CBC, ADIF F, ANEU #### [address] [address] #### LIP, CMP, GFR #### [address] [address] Protein [Mass/Vol] 7.2 6.4-8.2 G/dL Normal 04-05-2019 [facility] [place] ([id number]) Comment: Performed By: #### CBC, ADIF F, ANEU #### [address] [address] #### LIP, CMP, GFR #### [address] [address] Sodium [Moles/Vol] 140 136-145 mmol/L Normal 04-05-2019 [facility] [place] (0000 0) Comment: Performed By: #### CBC, ADIF F, ANEU #### [address] [address] #### LIP, CMP, GFR #### [address] [address] Urea nitrogen [Mass/Vol] 8 7-18 mg/dL Normal 04-05 [facility] ([place] (0000 0) Comment: Performed By: #### CBC, ADIF F, ANEU #### [address] [address] #### LIP, CMP, GFR #### [address] [address] Urea nitrogen/Creatinine [Mass 9 7-27 ratio Normal 04-05-2019 [facility] ratio] [facility] ([place]) ([id number]) Comment: Performed By: #### CBC, ADIF F, ANEU #### [place] [address] #### LIP, CMP, GFR #### [address] [address] cbc on 2019-04-05 Erythrocyte distribution 13.0 11.5-14.5 % Normal 04-05 [facility] width (RBC) [Ratio] [facility] ([place]) ([id number]) Comment: Performed By: #### CBC, ADIF F, ANEU #### [place] [address] #### LIP, CMP, GFR #### [address] [address] Hematocrit (Bld) [Volume 40.3 37.0-47.0 % Normal 04-05 [facility] fraction] ([place]) (0000 0) Comment: Performed By: #### CBC, ADIF F, ANEU #### [address] [address] #### LIP, CMP, GFR #### [address] [address] Hemoglobin (Bld) 13.7 12.0-16.0 G/dL Normal 04-05-2019 [facility] [Mass/Vol] [facility] [place] ([id number]) Comment: Performed By: #### CBC, ADIF F, ANEU #### [place] [address] #### LIP, CMP, GFR #### [address] [address] MCH (RBC) [Entitic mass] 31.3 27.0-31.2 pg High 04-05 [facility] ([place] (0000 0) Comment: Performed By: #### CBC, ADIF F, ANEU #### [place] [address] #### LIP, CMP, GFR #### [address] [address] MCHC (RBC) [Mass/Vol] 34.1 33.0-37.0 G/dL Normal 04-05-19 20 [facility] ([place] (0000 0) Comment: Performed By: #### CBC, ADIF F, ANEU #### [place] [address] #### LIP, CMP, GFR #### [place] [id number] MCV (RBC) [Entitic vol] 91.9 80.0-94.0 fL Normal 2019 [facility] ([place] (0000 0) Comment: Performed By: #### CBC, ADIF F, ANEU #### [place] [address] #### LIP, CMP, GFR #### [address] [address] Platelet mean volume 9.7 7.4-10.4 fL Normal 0 [facility] (Bld) [Entitic vol] ([place]) ([id number]) Comment: Performed By: #### CBC, ADIF F, ANEU #### [place] [address] #### LIP, CMP, GFR #### [address] [address] Platelets (Bld) [#/Vol] 225 130-400 10 3/mcL Normal 2019 [facility] ([place] ([id number]) Comment: Performed By: #### CBC, ADIF F, ANEU #### [place] [address] #### LIP, CMP, GFR #### [place] [id number] RBC (Bld) [#/Vol] 4.39 4.20-5.40 10 6/[facility] Normal 04-05-2019 [facility] ([place]) (0000 0) Comment: Performed By: #### CBC, ADIF F, ANEU #### [address] [address] #### LIP, CMP, GFR #### [address] [address] WBC (Bld) [#/Vol] 9.90 4.60-10.80 10 3/[facility] Normal 04-05-2019 [facility] [place] ([id number]) Comment: Performed By: #### CBC, ADIF F, ANEU #### [address] [address] #### LIP, CMP, GFR #### [address] [address] .neuabs on Neutrophils (Bld) 6.80 2.85-6.16 10 3/mcL High 04-05-2019 [facility] [#/Vol] [facility] ([place]) (02589) Comment: Performed By: #### CBC, ADIF F, ANEU #### [address] [address] #### LIP, CMP, GFR #### [address] [address] .gfr on 2019-04-05 GFR 87 ml/min/1.73sqm Normal 03-24 [facility] ([place] (0000 0) Comment: Result Comment: GFR Population mean for Afri can Samoan, Non- Americans Ages 20-29 = 116 mL/min/1.73 sq.m. Ages 30-39 = 107 mL/min/1.73 sq.m. Ages 40-49 = 99 mL/min/1.73 sq.m. Ages 50-59 = 93 mL/min/1.73 sq.m. Ages 60-69 = 85 mL/min/1.73 sq.m. Ages 70+ = 75 mL/min/1.73 sq .m. Chronic Kidney Disease: Less than 60 mL/min/1.73 square meters End Stage Renal Disease: Les s than 15 mL/min/1.73 square meters Performed By: #### CBC, ADIF F, ANEU #### [address] [address] #### LIP, CMP, GFR #### [address] [address] GFR Non- 72 ml/min/1.73sqm Normal 04-05-2019 [facility] [place] ([id number]) Comment: Result Comment: GFR Population mean for Afri can Samoan, Non- Americans Ages 20-29 = 116 mL/min/1.73 sq.m. Ages 30-39 = 107 mL/min/1.73 sq.m. Ages 40-49 = 99 mL/min/1.73 sq.m. Ages 50-59 = 93 mL/min/1.73 sq.m. Ages 60-69 = 85 mL/min/1.73 sq.m. Ages 70+ = 75 mL/min/1.73 sq .m. Chronic Kidney Disease: Less than 60 mL/min/1.73 square meters End Stage Renal Disease: Les s than 15 mL/min/1.73 square meters Performed By: #### CBC, ADIF F, ANEU #### [place] [address] #### LIP, CMP, GFR #### [address] [address] .auto diff on 04-05 Ammonia (P) [Mass/Vol] 0.50 0.15-1.00 10 3/mcL Normal 020 [facility] ([place] ([id number]) Comment: Performed By: #### CBC, ADIF F, ANEU #### [address] [address] #### LIP, CMP, GFR #### [address] [address] Basophils (Bld) 0.10 0.00-0.19 10 3/mcL Normal 04-05-2019 [facility] [#/Vol] [facility] ([place]) ([id number]) Comment: Performed By: #### CBC, ADIF F, ANEU #### [address] [address] #### LIP, CMP, GFR #### [address] [address] Basophils/100 WBC (Bld) 0.8 0.0-2.5 % Normal 2019 [facility] ([place] (0000 0) Comment: Performed By: #### CBC, ADIF F, ANEU #### [place] [address] #### LIP, CMP, GFR #### [address] [address] Eosinophils (Bld) 0.10 0.00-0.40 10 3/mcL Normal 04-05-2019 [facility] [#/Vol] [facility] ([place]) ([id number]) Comment: Performed By: #### CBC, ADIF F, ANEU #### [place] [address] #### LIP, CMP, GFR #### [address] [address] Eosinophils/100 WBC (Bld) 0.8 0.0-7.0 % Normal 03-24 [facility] ([place] (0000 0) Comment: Performed By: #### CBC, ADIF F, ANEU #### [place] [address] #### LIP, CMP, GFR #### [address] [address] Lymphocytes (Bld) 2.40 0.77-3.85 10 3/mcL Normal 04-05-2019 [facility] [#/Vol] [facility] ([place]) ([id number]) Comment: Performed By: #### CBC, ADIF F, ANEU #### [place] [address] #### LIP, CMP, GFR #### [address] [address] Lymphocytes/100 WBC (Bld) 24.7 10.0-50.0 % Normal 03-24 [facility] ([place]) ([id number]) Comment: Performed By: #### CBC, ADIF F, ANEU #### [address] [address] #### LIP, CMP, GFR #### [address] [address] Monocytes/100 WBC (Bld) 5.5 1.7-13.0 % Normal 2019 [facility] ([place] (0000 0) Comment: Performed By: #### CBC, ADIF F, ANEU #### [address] [address] #### LIP, CMP, GFR #### [address] [address] Neutrophils/100 WBC (Bld) 68.2 37.0-80.0 % Normal 03-24 [facility] ([place] ([id number]) Comment: Performed By: #### CBC, ADIF F, ANEU #### [place] [address] #### LIP, CMP, GFR #### [address] [address] ua on 2019-03-31 Color (U) Yellow Normal 03-31-2019 [facility] ([place]) ([id number]) Comment: Performed By: #### CBC, ADIF F, ANEU #### [place] [id number] #### LIP, CMP, GFR #### [address] [address] Glucose (U) [Mass/Vol] Negative Negative mg/dL Normal [facility] [place] (60726) Comment: Performed By: #### CBC, ADIF F, ANEU #### [place] [id number] #### LIP, CMP, GFR #### [address] [address] Ketones Ql (U) Negative Negative Normal 03-31-2019 [facility] ([place]) ([id number]) Comment: Performed By: #### CBC, ADIF F, ANEU #### [address] [address] #### LIP, CMP, GFR #### [address] [address] UA Appear Slightly Cloudy Clear Abnormal 03-31-2019 [facility] ([place]) (00264) Comment: Performed By: #### CBC, ADIF F, ANEU #### [place] [address] #### LIP, CMP, GFR #### [address] [address] UA Blood Trace Negative Abnormal 03-31-2019 [facility] ([place]) ([id number]) Comment: Performed By: #### CBC, ADIF F, ANEU #### [place] [address] #### LIP, CMP, GFR #### [place] [address] UA Leuk Est Negative Negative Normal 03-31-2019 [facility] ([place] (63241) Comment: Performed By: #### CBC, ADIF F, ANEU #### [place] [address] #### LIP, CMP, GFR #### [address] [address] UA Nitrite Negative Negative Normal 03-31-2019 [facility] [place] (14830) Comment: Performed By: #### CBC, ADIF F, ANEU #### [place] [address] #### LIP, CMP, GFR #### [address] [address] UA pH 5.5 5.0 - 8.0 Normal 03-31-2019 [facility] ([place]) ([id number]) Comment: Performed By: #### CBC, ADIF F, ANEU #### [place] [address] #### LIP, CMP, GFR #### [address] [address] UA Protein Negative Negative Normal 03-31-2019 [facility] ([place] ([id number]) Comment: Performed By: #### CBC, ADIF F, ANEU #### [place] [address] #### LIP, CMP, GFR #### [place] [address] UA Spec Grav 1.025 1.015-1.025 Normal 03-31-2019 [facility] ([place]) (05514) Comment: Performed By: #### CBC, ADIF F, ANEU #### [place] [address] #### LIP, CMP, GFR #### [place] [address] UA Specimen Type Catheter Normal 03-31-2019 [facility] ([place]) (01002) Comment: Performed By: #### CBC, ADIF F, ANEU #### [place] [address] #### LIP, CMP, GFR #### [place] [address] UA Urobilinogen 0.2 0.2-1.0 E.U./dL Normal 03-31-2019 [facility] ([place]) ([id number]) Comment: Performed By: #### CBC, ADIF F, ANEU #### [place] [address] #### LIP, CMP, GFR #### [address] [address] Urobilinogen Qn (U) Negative Negative Normal 03-31-2019 [facility] ([place] (0000 0) Comment: Performed By: #### CBC, ADIF F, ANEU #### [place] [address] #### LIP, CMP, GFR #### [place] [address] pregu on 2019-03-31 HCG ( test) Ql (U) Negative Normal [facility] ([place]) (0000 0) Comment: Performed By: #### CBC, ADIF F, ANEU #### [address] [address] #### LIP, CMP, GFR #### [facility] [address] [place] [address] test (u) int HCG not detected. 03-31-2019 [facility] ([place]) (0000 0) Comment: Performed By: #### CBC, ADIF F, ANEU #### [address] [address] #### LIP, CMP, GFR #### [facility] [address] [place] [address] lip on 2019-03-31 Lipase Level 94 73-393 U/L Normal 03-31-2019 [facility] ([place]) ([id number]) Comment: Performed By: #### CBC, ADIF F, ANEU #### [address] [address] #### LIP, CMP, GFR #### [facility] [address] [place] [address] head or brain w/o contrast on 2019-03-31 CT HEAD OR BRAIN ORIGINAL Normal 03-31-2019 [facility] W/O CONTRAST CT HEAD OR BRAIN W/O CONTRAST [facility]) ([id number]) CLINICAL STATEMENT: seizures. TECHNIQUE: Axial CT images from skull base to vertex without IV contras t. This exam was performed acco rding to our departmental dose optimization program, and includes the following measures where applicable: automated exposure control, adjustment of the mAs and/or kVp accord ing to patient size and/or exam, and an iterative reconstr uction algorithm. COMPARISON: CT head (07/22/2016). FINDINGS: There is no acute intracrani al hemorrhage, mass, mass effect, or abnormal fluid collection. There is no CT evidence of acute infarct. Scattered parenchymal hypodensities in the cerebral white matter are nonspecific but statistical ly most consistent with mild chronic microvascular angiopathy. There is proportionate enlargement of the ventricular system and cortical sulci, compatible with parenchymal vo lume loss. Atherosclerotic calcifications are present in the ICAs. The skull base and calvarium are normal. The paranasal sinuses are predominantly clear. Included mastoid air cells are clear. IMPRESSION: No acute abnormality. Lolita r, MRI is more sensitive for detecting epileptogenic foci and may be useful for further nonemergent evaluation if not previously performed. I have personally reviewed t he images of this examination and agree with the resident's findings and interpretation. Interpreted By: Cruz Tillman MD Preliminary Report By: Wing Riley DO Electronically Signed By: Cruz Tillman MD Dictated Date: 03/31/2019 12:11:12 AM Prelim Date: 03/31/2019 12:15:02 AM Sign Date: 03/31/2019 1:53:29 PM Ordering Provider:Kiko Beckford cbc on 2019-03-31 Erythrocyte distribution 13.0 11.5-14.5 % Normal 03-31 [facility] width (RBC) [Ratio] [facility] ([place]) ([id number]) Comment: Performed By: #### CBC, ADIF F, ANEU #### [place] [address] #### LIP, CMP, GFR #### [address] [address] Hematocrit (Bld) [Volume 39.3 37.0-47.0 % Normal 03-31 [facility] fraction] ([place]) (0000 0) Comment: Performed By: #### CBC, ADIF F, ANEU #### [place] [address] #### LIP, CMP, GFR #### [address] [address] Hemoglobin (Bld) 13.3 12.0-16.0 G/dL Normal 03-31-2019 [facility] [Mass/Vol] [facility] [place] ([id number]) Comment: Performed By: #### CBC, ADIF F, ANEU #### [place] [address] #### LIP, CMP, GFR #### [address] [address] MCH (RBC) [Entitic mass] 31.2 27.0-31.2 pg Normal 03-31 [facility] ([place] (0000 0) Comment: Performed By: #### CBC, ADIF F, ANEU #### [address] [address] #### LIP, CMP, GFR #### [address] [address] MCHC (RBC) [Mass/Vol] 34.0 33.0-37.0 G/dL Normal 03-31-19 20 [facility] ([place] (0000 0) Comment: Performed By: #### CBC, ADIF F, ANEU #### [place] [address] #### LIP, CMP, GFR #### [address] [address] MCV (RBC) [Entitic vol] 92.0 80.0-94.0 fL Normal 2019 [facility] ([place]) (0000 0) Comment: Performed By: #### CBC, ADIF F, ANEU #### [address] [address] #### LIP, CMP, GFR #### [address] [address] Platelet mean volume 9.6 7.4-10.4 fL Normal 0 [facility] ([place]ld) [Entitic vol] ([place]) ([id number]) Comment: Performed By: #### CBC, ADIF F, ANEU #### [place] [address] #### LIP, CMP, GFR #### [address] [address] Platelets (Bld) [#/Vol] 222 130-400 10 3/mcL Normal 2019 [facility] ([place]) (77404) Comment: Performed By: #### CBC, ADIF F, ANEU #### [place] [address] #### LIP, CMP, GFR #### [address] [address] RBC (Bld) [#/Vol] 4.27 4.20-5.40 10 6/mcL Normal 03-31-2019 [facility] ([place]) (0000 0) Comment: Performed By: #### CBC, ADIF F, ANEU #### [address] [address] #### LIP, CMP, GFR #### [address] [address] WBC (Bld) [#/Vol] 6.80 4.60-10.80 10 3/mcL Normal 03-31-2019 [facility] ([place]) (54841) Comment: Performed By: #### CBC, ADIF F, ANEU #### [place] [address] #### LIP, CMP, GFR #### [address] [address] bai on 2019-03-31 Chloride [Moles/Vol] 106 98-107 mmol/L Normal 0 [facility] ([place] (0000 0) Comment: Performed By: #### CBC, ADIF F, ANEU #### [address] [address] #### LIP, CMP, GFR #### [address] [address] CO2 [Moles/Vol] 26 22-29 mmol/L Normal 03-31-2019 [facility] ([place]) (30605) Comment: Performed By: #### CBC, ADIF F, ANEU #### [address] [address] #### LIP, CMP, GFR #### [place] [address] Creatinine [Mass/Vol] 0.87 0.55-1.02 mg/dL Normal 03-31-19 20 [facility] ([place]) ([id number]) Comment: Performed By: #### CBC, ADIF F, ANEU #### [place] [id number] #### LIP, CMP, GFR #### [facility] [address] [place] [address] Electrolyte Balance 9.0 mEq/L Normal 03-31-2019 [facility] ([place]) (38159) Comment: Performed By: #### CBC, ADIF F, ANEU #### [address] [address] #### LIP, CMP, GFR #### [address] [address] Glucose [Mass/Vol] 97 70-105 mg/dL Normal 03-31-2019 [facility] ([place]) (37012) Comment: Performed By: #### CBC, ADIF F, ANEU #### [place] [address] #### LIP, CMP, GFR #### [address] [address] Potassium [Moles/Vol] 3.7 3.5-5.1 mmol/L Normal 03-31-19 [facility] ([place]) (0000 0) Comment: Performed By: #### CBC, ADIF F, ANEU #### [place] [address] #### LIP, CMP, GFR #### [address] [address] Sodium [Moles/Vol] 141 136-145 mmol/L Normal 03-31-2019 [facility] ([place]) (0000 0) Comment: Performed By: #### CBC, ADIF F, ANEU #### [address] [address] #### LIP, CMP, GFR #### [address] [address] Urea nitrogen [Mass/Vol] 12 7-18 mg/dL Normal 03-31 [facility] ([place] (0000 0) Comment: Performed By: #### CBC, ADIF F, ANEU #### [place] [id number] #### LIP, CMP, GFR #### [address] [address] Urea nitrogen/Creatinine [Mass 14 7-27 ratio Normal 03-31-2019 [facility]) ([id number]) Comment: Performed By: #### CBC, ADIF F, ANEU #### [address] [address] #### LIP, CMP, GFR #### [place] [address] Calcium Ionized 1.22 1.12-1.32 mmol/L Normal 03-31-2019 [facility] ([place]) (0000 0) Comment: Performed By: #### CBC, ADIF F, ANEU #### [place] [address] #### LIP, CMP, GFR #### [place] [address] .urinalysis microscopic (ao) on 2019-03-31 RBC (U) [#/Vol] None Seen None Seen Normal 03-31-2019 [facility] ([place]) (0000 0) Comment: Performed By: #### CBC, ADIF F, ANEU #### [place] [address] #### LIP, CMP, GFR #### [address] [address] UA Squam Epithelial 5-10 None Seen Abnormal 03-31-2019 [facility] ([place]) (0000 0) Comment: Performed By: #### CBC, ADIF F, ANEU #### [place] [address] #### LIP, CMP, GFR #### [address] [address] UA WBC 0-5 None Seen Abnormal 03-31-2019 [facility] ([place]) ([id number]) Comment: Performed By: #### CBC, ADIF F, ANEU #### [address] [address] #### LIP, CMP, GFR #### [place] [address] .neuabs on Neutrophils (Bld) 3.10 2.85-6.16 10 3/mcL Normal 03-31-2019 [facility] [#/Vol] [facility] ([place]) ([id number]) Comment: Performed By: #### CBC, ADIF F, ANEU #### [place] [address] [address] #### LIP, CMP, GFR #### [address] [address] .gfr on 2019-03-31 GFR 86 ml/min/1.73sqm Normal [facility] ([place]) (0000 0) Comment: Result Comment: GFR Population mean for Afri can Samoan, Non- Americans Ages 20-29 = 116 mL/min/1.73 sq.m. Ages 30-39 = 107 mL/min/1.73 sq.m. Ages 40-49 = 99 mL/min/1.73 sq.m. Ages 50-59 = 93 mL/min/1.73 sq.m. Ages 60-69 = 85 mL/min/1.73 sq.m. Ages 70+ = 75 mL/min/1.73 sq .m. Chronic Kidney Disease: Less than 60 mL/min/1.73 square meters End Stage Renal Disease: Les s than 15 mL/min/1.73 square meters Performed By: #### CBC, ADIF F, ANEU #### [place] [address] [address] #### LIP, CMP, GFR #### [address] [address] GFR Non- 71 ml/min/1.73sqm Normal 03-31-2019 [facility] ([place]) ([id number]) Comment: Result Comment: GFR Population mean for Afri can Samoan, Non- Americans Ages 20-29 = 116 mL/min/1.73 sq.m. Ages 30-39 = 107 mL/min/1.73 sq.m. Ages 40-49 = 99 mL/min/1.73 sq.m. Ages 50-59 = 93 mL/min/1.73 sq.m. Ages 60-69 = 85 mL/min/1.73 sq.m. Ages 70+ = 75 mL/min/1.73 sq .m. Chronic Kidney Disease: Less than 60 mL/min/1.73 square meters End Stage Renal Disease: Les s than 15 mL/min/1.73 square meters Performed By: #### CBC, ADIF F, ANEU #### [place] [address] #### LIP, CMP, GFR #### [address] [address] .auto diff on 03-31 Ammonia (P) [Mass/Vol] 0.60 0.15-1.00 10 3/mcL Normal 020 [facility] ([place] ([id number]) Comment: Performed By: #### CBC, ADIF F, ANEU #### [place] [address] #### LIP, CMP, GFR #### [address] [address] Basophils (Bld) 0.10 0.00-0.19 10 3/mcL Normal 03-31-2019 [facility] [#/Vol] [facility] ([place]) (43542) Comment: Performed By: #### CBC, ADIF F, ANEU #### [place] [address] #### LIP, CMP, GFR #### [address] [address] Basophils/100 WBC (Bld) 0.8 0.0-2.5 % Normal 2019 [facility] ([place]) (0000 0) Comment: Performed By: #### CBC, ADIF F, ANEU #### [place] [address] #### LIP, CMP, GFR #### [address] [address] Eosinophils (Bld) 0.10 0.00-0.40 10 3/mcL Normal 03-31-2019 [facility] [#/Vol] [facility] ([place]) ([id number]) Comment: Performed By: #### CBC, ADIF F, ANEU #### [address] [address] #### LIP, CMP, GFR #### [address] [address] Eosinophils/100 WBC (Bld) 2.0 0.0-7.0 % Normal -0 [facility] ([place]) (0000 0) Comment: Performed By: #### CBC, ADIF F, ANEU #### [place] [address] #### LIP, CMP, GFR #### [address] [address] Lymphocytes (Bld) 3.00 0.77-3.85 10 3/mcL Normal 03-31-2019 [facility] [#/Vol] [facility] ([place]) ([id number]) Comment: Performed By: #### CBC, ADIF F, ANEU #### [place] [address] #### LIP, CMP, GFR #### [address] [address] Lymphocytes/100 WBC (Bld) 43.7 10.0-50.0 % Normal -0 [facility] ([place]) ([id number]) Comment: Performed By: #### CBC, ADIF F, ANEU #### [address] [address] #### LIP, CMP, GFR #### [address] [address] Monocytes/100 WBC (Bld) 8.6 1.7-13.0 % Normal 2019 [facility] ([place]) (0000 0) Comment: Performed By: #### CBC, ADIF F, ANEU #### [place] [id number] #### LIP, CMP, GFR #### [address] [address] Neutrophils/100 WBC (Bld) 44.9 37.0-80.0 % Normal [facility] ([place]) ([id number]) Comment: Performed By: #### CBC, ADIF F, ANEU #### [facility] [address] [place], [place] [address] #### LIP, CMP, GFR #### [facility] [address] [place] [address] us abdomen limited on 2019-02-16 US ABDOMEN LIMITED ORIGINAL Normal 02-16-2019 [facility] US ABDOMEN LIMITED [facility] ([place]) ([id number]) CLINICAL INDICATION: pain COMPARISON: 09/24/2016 FINDINGS: LIVER: Homogeneous in echotexture without focal mass. BILIARY: No extra or intrahepatic duct dilatation. COMMON DUCT: 2 mm, not dilated GALLBLADDER: Sonographically normal. No sonographic Hernandez's sign. RIGHT KIDNEY: 10.0 cm. No hydronephrosis. PANCREAS: Visualized portion unremarkable IVC: Visualized portion patent AORTA: Visualized portion is unremarkable ASCITES: None IMPRESSION: 1. No acute finding. Interpreted By: Nina Garrett MD Preliminary Report By: Nina Garrett MD Electronically Signed By: Nina Garrett MD Dictated Date: 02/16/2019 4:09:40 PM Prelim Date: 02/16/2019 4:09:40 PM Sign Date: 02/16/2019 4:10:20 PM Ordering Provider:Herminio Moseley ct abd/pelvis w/ iv contrast only on 2019-02-16 CT ABD/PELVIS W/ IV ORIGINAL Normal 02-16-2019 [facility] CONTRAST ONLY CT ABD/PELVIS W/ IV CONTRAST ONLY [facility] ([place]) ([id number]) TECHNIQUE: Images were obtai hannah with IV contrast. This exam was performed according to our departmental dose optimization program, and includes the following measures where applicable: automated exposur e control, adjustment of the mAs and/or kVp according to patient size and/or exam, and an iterative reconstruction algorithm. CLINICAL STATEMENT: pain. COMPARISON: June 19, 2016 FINDINGS: No osseous finding . There is some scarring identified at the lateral aspect of the left mid to lower lung. The liver, spleen, adrenal g lands and pancreas are normal. A 3 mm left lower pole renal stone is evident. No other renal finding. There is no adenopathy, free air or free fluid seen. No GI tract abnormality is visible. The appendix is normal. No other contributory finding. IMPRESSION: Punctate nonobstructive left nephrolithiasis. No acute finding. Interpreted By: Chaka Hester MD Preliminary Report By: Chaka Hester MD Electronically Signed By: Chaka Hester MD Dictated Date: 02/16/2019 8:55:28 PM Prelim Date: 02/16/2019 8:55:28 PM Sign Date: 02/16/2019 8:58:59 PM Ordering Provider:Nguyen Jules cmp on 2019-02-16 Albumin [Mass/Vol] 3.2 3.5-5.0 G/dL Low 02-16-2019 [facility] ([place] ([id number]) Comment: Performed By: #### CBC, ADIF F, ANEU #### [address] [address] #### LIP, CMP, GFR #### [address] [address] Albumin/Globulin [Mass 1.1 1.1-2.5 ratio Normal [address] [place] [address]] [facility]) ([id number]) Comment: Performed By: #### CBC, ADIF F, ANEU #### [address] [address] #### LIP, CMP, GFR #### [address] [address] ALP [Catalytic activity/Vol] 104 40-135 U/L Normal 1 04-18-2018 [facility] [place] (72986) Comment: Performed By: #### CBC, ADIF F, ANEU #### [address] [address] #### LIP, CMP, GFR #### [address] [address] ALT [Catalytic activity/Vol] 18 10-35 U/L Normal 1 04-18-2018 [facility]) (0000 0) Comment: Performed By: #### CBC, ADIF F, ANEU #### [address] [address] #### LIP, CMP, GFR #### [address] [address] AST [Catalytic activity/Vol] 14 10-40 U/L Normal 1 04-18-2018 [facility] [place] (0000 0) Comment: Performed By: #### CBC, ADIF F, ANEU #### [address] [address] #### LIP, CMP, GFR #### [address] [address] Bili Total 0.1 0.2-1.0 mg/dL Low 02-16-2019 [facility] [place] (13111) Comment: Performed By: #### CBC, ADIF F, ANEU #### [place] [address] #### LIP, CMP, GFR #### [address] [address] Calcium [Mass/Vol] 8.9 8.4-10.2 mg/dL Normal 02-16-2019 [facility] [place]) (0000 0) Comment: Performed By: #### CBC, ADIF F, ANEU #### [place] [address] #### LIP, CMP, GFR #### [address] [address] Chloride [Moles/Vol] 107 98-107 mmol/L Normal 9 [facility] [place] (0000 0) Comment: Performed By: #### CBC, ADIF F, ANEU #### [place] [address] #### LIP, CMP, GFR #### [address] [address] CO2 [Moles/Vol] 27 22-29 mmol/L Normal 02-16-2019 [facility] ([place]) (26332) Comment: Performed By: #### CBC, ADIF F, ANEU #### [place] [address] #### LIP, CMP, GFR #### [address] [address] Creatinine [Mass/Vol] 0.83 0.55-1.02 mg/dL Normal 02-17-20 [facility] [place] (11535) Comment: Performed By: #### CBC, ADIF F, ANEU #### [address] [address] #### LIP, CMP, GFR #### [address] [address] Electrolyte Balance 9.0 mEq/L Normal 02-16-2019 [facility] [place] (28184) Comment: Performed By: #### CBC, ADIF F, ANEU #### [address] [address] #### LIP, CMP, GFR #### [address] [address] Globulin (S) [Mass/Vol] 2.9 G/dL Normal 2018 [facility] [place] ([id number]) Comment: Performed By: #### CBC, ADIF F, ANEU #### [address] [address] #### LIP, CMP, GFR #### [address] [address] Glucose [Mass/Vol] 95 70-105 mg/dL Normal 02-16-2019 [facility] [place] ([id number]) Comment: Performed By: #### CBC, ADIF F, ANEU #### [address] [address] #### LIP, CMP, GFR #### [address] [address] Potassium [Moles/Vol] 3.9 3.5-5.1 mmol/L Normal 02-17-20 [facility] [place]) (0000 0) Comment: Performed By: #### CBC, ADIF F, ANEU #### [address] [address] #### LIP, CMP, GFR #### [address] [address] Protein [Mass/Vol] 6.1 6.4-8.2 G/dL Low 02-16-2019 [facility] [place] (39393) Comment: Performed By: #### CBC, ADIF F, ANEU #### [address] [address] #### LIP, CMP, GFR #### [address] [address] Sodium [Moles/Vol] 143 136-145 mmol/L Normal 02-16-2019 [facility] [place] (0000 0) Comment: Performed By: #### CBC, ADIF F, ANEU #### [address] [address] #### LIP, CMP, GFR #### [address] [address] Urea nitrogen [Mass/Vol] 11 7-18 mg/dL Normal 02-16 [facility] [place] (0000 0) Comment: Performed By: #### CBC, ADIF F, ANEU #### [address] [address] #### LIP, CMP, GFR #### [address] [address] Urea nitrogen/Creatinine [Mass 13 7-27 ratio Normal 02-16-2019 [facility] ratio] [facility] ([place]) (55829) Comment: Performed By: #### CBC, ADIF F, ANEU #### [place] [address] #### LIP, CMP, GFR #### [address] [address] cbc on 2019-02-16 Erythrocyte distribution 13.0 11.5-14.5 % Normal 02-16 [facility] width (RBC) [Ratio] [facility] ([place]) (18854) Comment: Performed By: #### CBC, ADIF F, ANEU #### [address] [address] #### CMP, GFR #### [address] [address] Hematocrit (Bld) [Volume 36.2 37.0-47.0 % Low 02-16 [facility] fraction] ([place]) (0000 0) Comment: Performed By: #### CBC, ADIF F, ANEU #### [address] [address] #### CMP, GFR #### [address] [address] Hemoglobin (Bld) 12.2 12.0-16.0 G/dL Normal 02-16-2019 [facility] [Mass/Vol] [facility] (92145) Comment: Performed By: #### CBC, ADIF F, ANEU #### [place] [address] #### CMP, GFR #### [address] [address] MCH (RBC) [Entitic mass] 31.5 27.0-31.2 pg High 02-16 [facility] ([place]) (0000 0) Comment: Performed By: #### CBC, ADIF F, ANEU #### [place] [address] #### CMP, GFR #### [address] [address] MCHC (RBC) [Mass/Vol] 33.7 33.0-37.0 G/dL Normal 02-17-20 19 [facility] ([place]) (0000 0) Comment: Performed By: #### CBC, ADIF F, ANEU #### [place] [address] #### CMP, GFR #### [address] [address] MCV (RBC) [Entitic vol] 93.3 80.0-94.0 fL Normal 2018 [facility] ([place]) (0000 0) Comment: Performed By: #### CBC, ADIF F, ANEU #### [place] [address] #### CMP, GFR #### [address] [address] Platelet mean volume 9.3 7.4-10.4 fL Normal 9 [facility] (d) [Entitic vol] ([place]) (01710) Comment: Performed By: #### CBC, ADIF F, ANEU #### [address] [address] #### CMP, GFR #### [address] [address] Platelets (Bld) [#/Vol] 196 130-400 10 3/mcL Normal 2018 [facility] ([place] (30685) Comment: Performed By: #### CBC, ADIF F, ANEU #### [address] [address] #### CMP, GFR #### [address] [address] RBC (Bld) [#/Vol] 3.88 4.20-5.40 10 6/mcL Low 02-16-2019 [facility] ([place]) (0000 0) Comment: Performed By: #### CBC, ADIF F, ANEU #### [address] [address] #### CMP, GFR #### [address] [address] WBC (Bld) [#/Vol] 5.70 4.60-10.80 10 3/mcL Normal 02-16-2019 [facility] [place]) ([id number]) Comment: Performed By: #### CBC, ADIF F, ANEU #### [address] [address] #### CMP, GFR #### [address] [address] .neuabs on Neutrophils (Bld) 2.40 2.85-6.16 10 3/mcL Low 02-16-2019 [facility] [#/Vol] [facility] ([place]) (87614) Comment: Performed By: #### CBC, ADIF F, ANEU #### [address] [address] #### LIP, CMP, GFR #### [address] [address] .gfr on 2019-02-16 GFR Non- 75 ml/min/1.73sqm Normal 02-16-2019 [facility] ([place]) (40477) Comment: Result Comment: GFR Population mean for Afri can Samoan, Non- Americans Ages 20-29 = 116 mL/min/1.73 sq.m. Ages 30-39 = 107 mL/min/1.73 sq.m. Ages 40-49 = 99 mL/min/1.73 sq.m. Ages 50-59 = 93 mL/min/1.73 sq.m. Ages 60-69 = 85 mL/min/1.73 sq.m. Ages 70+ = 75 mL/min/1.73 sq .m. Chronic Kidney Disease: Less than 60 mL/min/1.73 square meters End Stage Renal Disease: Les s than 15 mL/min/1.73 square meters Performed By: #### CBC, ADIF F, ANEU #### [address] [address] #### LIP, CMP, GFR #### [address] [address] GFR 91 ml/min/1.73sqm Normal 01-23 [facility] ([place]) (0000 0) Comment: Result Comment: GFR Population mean for Afri can Samoan, Non- Americans Ages 20-29 = 116 mL/min/1.73 sq.m. Ages 30-39 = 107 mL/min/1.73 sq.m. Ages 40-49 = 99 mL/min/1.73 sq.m. Ages 50-59 = 93 mL/min/1.73 sq.m. Ages 60-69 = 85 mL/min/1.73 sq.m. Ages 70+ = 75 mL/min/1.73 sq .m. Chronic Kidney Disease: Less than 60 mL/min/1.73 square meters End Stage Renal Disease: Les s than 15 mL/min/1.73 square meters Performed By: #### CBC, ADIF F, ANEU #### Madelyn [place] [address] [place], [place] [address] #### LIP, CMP, GFR #### [address] [address] .auto diff on 02-16 Ammonia (P) [Mass/Vol] 0.60 0.15-1.00 10 3/mcL Normal 019 [facility] ([place]) ([id number]) Comment: Performed By: #### CBC, ADIF F, ANEU #### [place] [address] #### LIP, CMP, GFR #### [address] [address] Basophils (Bld) 0.00 0.00-0.19 10 3/mcL Normal 02-16-2019 [facility] [#/Vol] [facility] ([place]) (49355) Comment: Performed By: #### CBC, ADIF F, ANEU #### [place] [address] #### LIP, CMP, GFR #### [address] [address] Basophils/100 WBC (Bld) 0.7 0.0-2.5 % Normal 2018 [facility] ([place]) (0000 0) Comment: Performed By: #### CBC, ADIF F, ANEU #### [place] [address] #### LIP, CMP, GFR #### [address] [address] Eosinophils (Bld) 0.20 0.00-0.40 10 3/[facility] Normal 02-16-2019 [facility] [#/Vol] [facility] ([place]) (89041) Comment: Performed By: #### CBC, ADIF F, ANEU #### [place] [address] #### LIP, CMP, GFR #### [address] [address] Eosinophils/100 WBC (Bld) 3.1 0.0-7.0 % Normal 01-23 [facility] ([place]) (0000 0) Comment: Performed By: #### CBC, ADIF F, ANEU #### [address] [address] #### LIP, CMP, GFR #### [address] [address] Lymphocytes (Bld) 2.50 0.77-3.85 10 3/mcL Normal 02-16-2019 [facility] [#/Vol] [facility] ([place]) (95069) Comment: Performed By: #### CBC, ADIF F, ANEU #### [address] [address] #### LIP, CMP, GFR #### [address] [address] Lymphocytes/100 WBC (Bld) 43.0 10.0-50.0 % Normal 01-23 [facility] ([place]) (95215) Comment: Performed By: #### CBC, ADIF F, ANEU #### [address] [address] #### LIP, CMP, GFR #### [address] [address] Monocytes/100 WBC (Bld) 11.4 1.7-13.0 % Normal 2018 [facility] ([place]) (0000 0) Comment: Performed By: #### CBC, ADIF F, ANEU #### [address] [address] #### LIP, CMP, GFR #### [address] [address] Neutrophils/100 WBC (Bld) 41.8 37.0-80.0 % Normal 01-23 [facility] ([place]) (31221) Comment: Performed By: #### CBC, ADIF F, ANEU #### [address] [address] #### LIP, CMP, GFR #### [address] [address] ua on 2019-02-15 Color (U) Yellow Normal 02-15-2019 [facility] ([place]) (06329) Comment: Performed By: #### UA, UAMIC AO #### [address] [address] Glucose (U) [Mass/Vol] Negative Negative mg/dL Normal 019 [facility] ([place]) (46238) Comment: Performed By: #### UA, UAMIC AO #### [address] [address] Ketones Ql (U) Negative Negative Normal 02-15-2019 [facility] ([place]) (16585) Comment: Performed By: #### UA, UAMIC AO #### [place] [address] UA Appear Clear Clear Normal 02-15-2019 [facility] ([place]) (26446) Comment: Performed By: #### UA, UAMIC AO #### [address] [address] UA Blood Small Negative Abnormal 02-15-2019 [facility] ([place]) (56675) Comment: Performed By: #### UA, UAMIC AO #### [address] [address] UA Leuk Est Negative Negative Normal 02-15-2019 [facility] ([place]) (76584) Comment: Performed By: #### UA, UAMIC AO #### [address] [address] UA Nitrite Negative Negative Normal 02-15-2019 [facility] ([place] (00558) Comment: Performed By: #### UA, UAMIC AO #### [address] [address] UA pH 6.0 5.0 - 8.0 Normal 02-15-2019 [facility] ([place]) (28279) Comment: Performed By: #### UA, UAMIC AO #### [place] [id number] UA Protein Negative Negative Normal 02-15-2019 [facility] ([place]) (00919) Comment: Performed By: #### UA, UAMIC AO #### [place] [address] UA Spec Grav >=1.030 1.015-1.025 Abnormal 02-15-2019 [facility] ([place]) (71129) Comment: Performed By: #### UA, UAMIC AO #### [place] [address] UA Specimen Type Void Normal 02-15-2019 [facility] ([place]) (48214) Comment: Performed By: #### UA, UAMIC AO #### [place] [address] UA Urobilinogen 1.0 0.2-1.0 E.U./dL Normal 02-15-2019 [facility] ([place]) (63409) Comment: Performed By: #### UA, UAMIC AO #### [place] [address] Urobilinogen Qn (U) Negative Negative Normal 02-15-2019 [facility] ([place]) (0000 0) Comment: Performed By: #### UA, UAMIC AO #### [place] [address] lip on 2019-02-15 Lipase Level 104 73-393 U/L Normal 02-15-2019 [facility] ([place]) ([id number]) Comment: Performed By: #### CBC, ADIF F, ANEU #### [address] [address] #### LIP, CMP, GFR #### [place] [address] cmp on 2019-02-15 Albumin [Mass/Vol] 3.5 3.5-5.0 G/dL Normal 02-15-2019 [facility] ([place]) (53043) Comment: Performed By: #### CBC, ADIF F, ANEU #### [address] [address] #### LIP, CMP, GFR #### [place] [address] Albumin/Globulin [Mass 1.2 1.1-2.5 ratio Normal [address] [place] [address] ([place]) (61712) Comment: Performed By: #### CBC, ADIF F, ANEU #### [address] [address] #### LIP, CMP, GFR #### [address] [address] ALP [Catalytic activity/Vol] 113 40-135 U/L Normal 1 04-17-2018 [facility] ([place] (15910) Comment: Performed By: #### CBC, ADIF F, ANEU #### [place] [address] #### LIP, CMP, GFR #### [place] [address] ALT [Catalytic activity/Vol] 19 10-35 U/L Normal 1 04-17-2018 [facility] ([place]) (0000 0) Comment: Performed By: #### CBC, ADIF F, ANEU #### [place] [address] #### LIP, CMP, GFR #### [place] [address] AST [Catalytic activity/Vol] 11 10-40 U/L Normal 1 04-17-2018 [facility] ([place]) (0000 0) Comment: Performed By: #### CBC, ADIF F, ANEU #### [place] [address] #### LIP, CMP, GFR #### [place] [address] Bili Total 0.2 0.2-1.0 mg/dL Normal 02-15-2019 [facility] ([place]) (80141) Comment: Performed By: #### CBC, ADIF F, ANEU #### [place] [address] #### LIP, CMP, GFR #### [place] [address] Calcium [Mass/Vol] 9.2 8.4-10.2 mg/dL Normal 02-15-2019 [facility] ([place]) (0000 0) Comment: Performed By: #### CBC, ADIF F, ANEU #### [address] [address] #### LIP, CMP, GFR #### [address] [address] Chloride [Moles/Vol] 105 98-107 mmol/L Normal 9 [facility] ([place]) (0000 0) Comment: Performed By: #### CBC, ADIF F, ANEU #### [place] [address] #### LIP, CMP, GFR #### [address] [address] CO2 [Moles/Vol] 27 22-29 mmol/L Normal 02-15-2019 [facility] ([place]) (47202) Comment: Performed By: #### CBC, ADIF F, ANEU #### [address] [address] #### LIP, CMP, GFR #### [address] [address] Creatinine [Mass/Vol] 0.81 0.55-1.02 mg/dL Normal 02-16-20 19 [facility] ([place] (63661) Comment: Performed By: #### CBC, ADIF F, ANEU #### [place] [address] #### LIP, CMP, GFR #### [address] [address] Electrolyte Balance 8.0 mEq/L Normal 02-15-2019 [facility] ([place]) (62281) Comment: Performed By: #### CBC, ADIF F, ANEU #### [address] [address] #### LIP, CMP, GFR #### [place] [id number] Globulin (S) [Mass/Vol] 2.9 G/dL Normal 2018 [facility] ([place]) (71460) Comment: Performed By: #### CBC, ADIF F, ANEU #### [address] [address] #### LIP, CMP, GFR #### [address] [address] Glucose [Mass/Vol] 105 70-105 mg/dL Normal 02-15-2019 [facility] ([place]) (31767) Comment: Performed By: #### CBC, ADIF F, ANEU #### [address] [address] #### LIP, CMP, GFR #### [address] [address] Potassium [Moles/Vol] 3.7 3.5-5.1 mmol/L Normal 02-16-20 [facility] ([place]) (0000 0) Comment: Performed By: #### CBC, ADIF F, ANEU #### [address] [address] #### LIP, CMP, GFR #### [address] [address] Protein [Mass/Vol] 6.4 6.4-8.2 G/dL Normal 02-15-2019 [facility] ([place]) (33522) Comment: Performed By: #### CBC, ADIF F, ANEU #### [address] [address] #### LIP, CMP, GFR #### [address] [address] Sodium [Moles/Vol] 140 136-145 mmol/L Normal 02-15-2019 [facility] ([place]) (0000 0) Comment: Performed By: #### CBC, ADIF F, ANEU #### [address] [address] #### LIP, CMP, GFR #### [address] [address] Urea nitrogen [Mass/Vol] 12 7-18 mg/dL Normal 02-15 [facility] ([place]) (0000 0) Comment: Performed By: #### CBC, ADIF F, ANEU #### [address] [address] #### LIP, CMP, GFR #### [address] [address] Urea nitrogen/Creatinine [Mass 15 7-27 ratio Normal 02-15-2019 [facility] ratio] [facility] ([place]) (54482) Comment: Performed By: #### CBC, ADIF F, ANEU #### [address] [address] #### LIP, CMP, GFR #### [address] [address] cbc on 2019-02-15 Erythrocyte distribution 12.8 11.5-14.5 % Normal 02-15 [facility] width (RBC) [Ratio] [facility] ([place]) (19991) Comment: Performed By: #### CBC, ADIF F, ANEU #### [address] [address] #### LIP, CMP, GFR #### [address] [address] Hematocrit (Bld) [Volume 36.5 37.0-47.0 % Low 02-15 [facility] fraction] ([place]) (0000 0) Comment: Performed By: #### CBC, ADIF F, ANEU #### [place] [id number] #### LIP, CMP, GFR #### [address] [address] Hemoglobin (Bld) 12.5 12.0-16.0 G/dL Normal 02-15-2019 [facility] [Mass/Vol] [facility] [place] (21752) Comment: Performed By: #### CBC, ADIF F, ANEU #### [address] [address] #### LIP, CMP, GFR #### [address] [address] MCH (RBC) [Entitic mass] 31.5 27.0-31.2 pg High 02-15 [facility] ([place]) (0000 0) Comment: Performed By: #### CBC, ADIF F, ANEU #### [place] [address] #### LIP, CMP, GFR #### [place] [address] MCHC (RBC) [Mass/Vol] 34.2 33.0-37.0 G/dL Normal 02-16-20 19 [facility] ([place]) (0000 0) Comment: Performed By: #### CBC, ADIF F, ANEU #### [place] [address] #### LIP, CMP, GFR #### [place] [address] MCV (RBC) [Entitic vol] 92.0 80.0-94.0 fL Normal 2018 [facility] ([place]) (0000 0) Comment: Performed By: #### CBC, ADIF F, ANEU #### [place] [address] #### LIP, CMP, GFR #### [place] [address] Platelet mean volume 9.7 7.4-10.4 fL Normal 9 [facility] (d) [Entitic vol] ([place]) (44382) Comment: Performed By: #### CBC, ADIF F, ANEU #### [place] [address] #### LIP, CMP, GFR #### [place] [address] Platelets (Bld) [#/Vol] 208 130-400 10 3/mcL Normal 2018 [facility] ([place]) (89093) Comment: Performed By: #### CBC, ADIF F, ANEU #### [place] [address] #### LIP, CMP, GFR #### [address] [address] RBC (Bld) [#/Vol] 3.97 4.20-5.40 10 6/mcL Low 02-15-2019 [facility] ([place]) (0000 0) Comment: Performed By: #### CBC, ADIF F, ANEU #### [address] [address] #### LIP, CMP, GFR #### [place] [address] WBC (Bld) [#/Vol] 6.90 4.60-10.80 10 3/mcL Normal 02-15-2019 [facility] ([place]) (61505) Comment: Performed By: #### CBC, ADIF F, ANEU #### [address] [address] #### LIP, CMP, GFR #### [place] [address] .urinalysis microscopic (ao) on 2019-02-15 RBC (U) [#/Vol] 0-5 None Seen Abnormal 02-15-2019 [facility] ([place]) (53590) Comment: Performed By: #### UA, UAMIC AO #### [place] [address] UA Bacteria Trace Abnormal 02-15-2019 [facility] ([place]) (19819) Comment: Performed By: #### UA, UAMIC AO #### [place] [address] UA Squam Epithelial 0-5 None Seen Abnormal 02-15-2019 [facility] ([place]) (0000 0) Comment: Performed By: #### UA, UAMIC AO #### [place] [address] UA WBC 0-5 None Seen Abnormal 02-15-2019 [facility] ([place]) (11179) Comment: Performed By: #### UA, UAMIC AO #### [place] [address] .neuabs on Neutrophils (Bld) 3.30 2.85-6.16 10 3/mcL Normal 02-15-2019 [facility] [#/Vol] [facility] ([place]) ([id number]) Comment: Performed By: #### CBC, ADIF F, ANEU #### [place] [address] [address] #### LIP, CMP, GFR #### [address] [address] .gfr on 2019-02-15 GFR Non- 77 ml/min/1.73sqm Normal 02-15-2019 [facility] ([place]) (10638) Comment: Result Comment: GFR Population mean for Afri can Samoan, Non- Americans Ages 20-29 = 116 mL/min/1.73 sq.m. Ages 30-39 = 107 mL/min/1.73 sq.m. Ages 40-49 = 99 mL/min/1.73 sq.m. Ages 50-59 = 93 mL/min/1.73 sq.m. Ages 60-69 = 85 mL/min/1.73 sq.m. Ages 70+ = 75 mL/min/1.73 sq .m. Chronic Kidney Disease: Less than 60 mL/min/1.73 square meters End Stage Renal Disease: Les s than 15 mL/min/1.73 square meters Performed By: #### CBC, ADIF F, ANEU #### [address] [address] #### LIP, CMP, GFR #### [address] [address] GFR 93 ml/min/1.73sqm Normal 01-23 [facility] ([place]) (0000 0) Comment: Result Comment: GFR Population mean for Afri can Samoan, Non- Americans Ages 20-29 = 116 mL/min/1.73 sq.m. Ages 30-39 = 107 mL/min/1.73 sq.m. Ages 40-49 = 99 mL/min/1.73 sq.m. Ages 50-59 = 93 mL/min/1.73 sq.m. Ages 60-69 = 85 mL/min/1.73 sq.m. Ages 70+ = 75 mL/min/1.73 sq .m. Chronic Kidney Disease: Less than 60 mL/min/1.73 square meters End Stage Renal Disease: Les s than 15 mL/min/1.73 square meters Performed By: #### CBC, ADIF F, ANEU #### [address] [address] #### LIP, CMP, GFR #### [address] [address] .auto diff on 02-15 Ammonia (P) [Mass/Vol] 0.80 0.15-1.00 10 3/mcL Normal 019 [facility] ([place]) (48885) Comment: Performed By: #### CBC, ADIF F, ANEU #### [place] [address] #### LIP, CMP, GFR #### [address] [address] Basophils (Bld) 0.00 0.00-0.19 10 3/mcL Normal 02-15-2019 [facility] [#/Vol] [facility] ([place]) (38005) Comment: Performed By: #### CBC, ADIF F, ANEU #### [address] [address] #### LIP, CMP, GFR #### [address] [address] Basophils/100 WBC (Bld) 0.7 0.0-2.5 % Normal 2018 [facility] ([place]) (0000 0) Comment: Performed By: #### CBC, ADIF F, ANEU #### [address] [address] #### LIP, CMP, GFR #### [address] [address] Eosinophils (Bld) 0.10 0.00-0.40 10 3/mcL Normal 02-15-2019 [facility] [#/Vol] [facility] ([place]) ([id number]) Comment: Performed By: #### CBC, ADIF F, ANEU #### [address] [address] #### LIP, CMP, GFR #### [address] [address] Eosinophils/100 WBC (Bld) 1.7 0.0-7.0 % Normal 01-23 [facility] ([place]) (0000 0) Comment: Performed By: #### CBC, ADIF F, ANEU #### [place] [address] #### LIP, CMP, GFR #### [address] [address] Lymphocytes (Bld) 2.60 0.77-3.85 10 3/mcL Normal 02-15-2019 [facility] [#/[facility]] [facility] ([place]) ([id number]) Comment: Performed By: #### CBC, ADIF F, ANEU #### [place] [address] #### LIP, CMP, GFR #### [address] [address] Lymphocytes/100 WBC (Bld) 38.3 10.0-50.0 % Normal 01-23 [facility] ([place]) (80693) Comment: Performed By: #### CBC, ADIF F, ANEU #### [address] [address] #### LIP, CMP, GFR #### [address] [address] Monocytes/100 WBC (Bld) 11.4 1.7-13.0 % Normal 2018 [facility] ([place]) (0000 0) Comment: Performed By: #### CBC, ADIF F, ANEU #### [address] [address] #### LIP, CMP, GFR #### [address] [address] Neutrophils/100 WBC (Bld) 47.9 37.0-80.0 % Normal 01-23 [facility] ([place]) (07471) Comment: Performed By: #### CBC, ADIF F, ANEU #### [facility] [address] [place], [place] [address] #### LIP, CMP, GFR #### [facility] [address] [place] [address] cnpn on 2017-01-13 CNPN Telephone Normal 01-13-2017 [place] (ORTHWS) --------CHELLE DUVALL Clin ic ([id number]) 1975 FDate Time Provider Owvabtzqld66/23/17 RUBIO SHEPPARD During your visit Paul smith today, we recorded the follo wing information about you:Cata Almonte RN 01/13/2017 12:37 PM (0000 0) SignedPt. was just seen by Osito Mcneill on 01-07-17. She states in spite of J-brace and RICEshe is still extremely painful and rates pain a 9. She has been taking Dayproas ordered along with naproxen without relief. Explained to pt. that shecan not take 2 NSAIDS at the same time and that she should just try the Dayprofor now. Instructed th at it is ok to takeTylenol, with an NSAID, but not mixthe 2 NSAIDS. She verbalizes understanding and asks what she should do forpain? She states swelling has increased, but denies redness or fever. Her knee is warm to touch.Rubio Sheppard DO 01/13/2017 3:10 PM SignedShe needs to modify activity- she shou ld avoid standing and walking as much aspossible to allow time for healing. Keep knee elevated, ice, hamilton e medicationas directed.Sara Turk Ma 01/13/2017 4:26 PM SignedPatient has been notified of message from Dr. Sheppard. She verbalizedunderstanding.Allergies As of Date: 01/13/2017 Noted Allergy [place] ctionLATEX 11/02/2013 14 - Other: See CommentsTAPE (ADHESIVE TAPE (ROSINS)) 11/02/2013 14 - Other: See C ommentsVICODIN (HYDROCODONE-ACETAMINOPHE*02/02/2010 2 - RashZOCOR (SIMVASTATIN) 03/28/2015 17 - MyalgiaZOFRAN (ONDANSETRON HCL (PF)) 07/24/2011 14 - Other: See Comments Comments: HeadachesDate Revi ewed: 01/07/2017Reviewed by: Cata Almonte RN - Fully AssessedReason for Visit: In creasing Knee Pain [Other]Reason For Visit History RecordedPrescriptions as of 01/13/2017 Sig: OXAPROZIN 600 MG TABLET Take 1 tablet by mouth twice * CODEINE 10 MG-GUAIFENESIN 100* Take 10 mL by mouth four rimma e* LEVETIRACETAM ER 750 MG TABLE* Take 1 tablet by mouth twice * TOPIRAMATE 200 MG TABLET Take 1 tablet by mouth twice * ALBUTEROL SULFATE CONCENTRATE* Inhale 0.5 mL as instructed e* FLUTICASONE 200 MCG-VILAN TERO* Inhale 1 Inhalation as instru* VARENICLINE 0.5 MG (11)-1 MG * Take 0.5 mg daily x3days, the* VARENI MONCADA 1 MG TABLET Take 1 tablet by mouth twice * OMEPRAZOLE 20 MG CAPSULE,BENIGNO* Take 1 capsule by mouth daily* PROMETHAZINE 25 MG TABLET Take 25 mg by mouth every 6 h* ALBUTEROL SULFATE HFA 90 MCG /* Inhale 2 Puffs as instructed * COMPOUNDED PRESCRIPTION Home nebulizer machine with a* SUMATRIPTAN 25 MG TABLET Take 25 mg by mouth as needed. ATORVASTATIN 40 MG TABLET Take 1 tablet by mouth once d* MULT IVITAMIN TABLET Take 1 tablet by mouth once d*Problem List As Of Date 01/13/2017 Noted Resolved Ab dominal pain, right lower quadrant [R10.31] INVALID FOR*05/18/2015 Other and unspecified ovarian cyst [N8 3.209] INVALID FOR*05/18/2015 Cervical radiculopathy [M54.12] INVALID FOR*05/18/2015 Cervicalgia [ M54.2] INVALID FOR* Seizure disorder [G40.909] INVALID FOR* Irritable bowel syndrome with diarrhea [K58. 0] INVALID FOR* Mild intermittent asthma without complication [*INVALID FOR* Tobacco use disorder [F17.20 0] INVALID FOR* Chondral loose body of right knee joint [M23.41]INVALID FOR* Chronic pain of right knee [ M25.561, G89.29] INVALID FOR* Reactive depression [F32.9] INVALID FOR* Obesity, Class I, BMI 30-34. 9 [E66.9] INVALID FOR* Status:Closed by RUBIO SHEPPARD DO, V on 01/13/17 progress on 2016-12 PROGRESS HNO ID: [id number]: Jia Spencer 01-07-2017 [facility] Erlin MaService: (none)Author Fabricio ([id number]) Type: (none)Type: Progress NotesFiled: 01/07/2017 12:03 PMNote Text:PT ASSESSMENT - CASTING ROOMKathy presents for Application of brace.Applied DonJoy Drytex Lat J Hinge knee brace size large to Right knee.Patient tolerated well.Patient has been instructed in Care and proper application of brace.Patient signed DonJoy PPA electronically and was given a printed copy ofPPA due to having no email address. Patient given surveying or spatial science technician'sinstruction pamphlet. Patient verbalized understanding.Jia Kern Harshal PROGRESS HNO ID: [id number]: Rubiologan Spencer 01-07-2017 [facility] Josi Sheppard: (none)Author Type: Fabricio ([id number]) PhysicianType: Progress NotesFiled: 01/07/2017 11:37 AMNote Text:Chelle Duvall presents with pain in the right knee. Symptoms began 5days ago when she fell going down a flight of stairs and since then havebeen present daily. The pain is rated as 8 on a scale of 1-10. Thepatient was injured, in a fall. [facility] she[facility]-rays of the knee that showed no acute abnormality, and was referredhere for follow-up.She has prior history of arthroscopic surgery to the right knee 8 yearsago.PAST MEDICAL HISTORYDiagnosis Date- Asthma- C. difficile colitis- Cervical high risk human papillomavirus (HPV) DNA test positive 2010- Cervical radiculopathy 04/09/2011- Hx-TIA (transient ischemic attack)- Hyperlipidemia- Mild intermittent asthma without complication 03/09/2015- Seizures (HCC)PAST SURGICAL HISTORYProcedure Laterality Date- COLONOSCOPY 12/03/13- DANDC, DIAG AND/OR THERAPEUTIC 06/12/11 Dilation AND curettage- EGD 12/03/13- HYSTEROSCOPY, DIAGNOSTIC (SEPARATE 06/12/11 Hysteroscopy- LAP HYSTERECTOMY FOR UTERUS 250G OR LESS 11/25/12 with left salipinoopherectomy AND RIGHT OVARYCurrent Outpatient Prescriptions on File Prior to Visit:codeine-guaiFENesin (GUAIFENESIN AC) 10-100 mg/5 mL syrup Take 10 mL bymouth four times daily as needed.levETIRAcetam ER (KEPPRA XR) 750 mg 24 hr tablet Take 1 tablet by mouthtwice daily.topiramate (TOPAMAX) 200 mg tablet Take 1 tablet by mouth twice daily.albuterol (PROVENTIL) 5 mg/mL nebu Inhale 0.5 mL as instructed every 4hours as needed.fluticasone-vilanterol (BREO ELLIPTA) 200-25 mcg/dose inhaler Inhale 1Inhalation as instructed once daily. Inhale one puff once daily. DO NOTCLICK OPEN UNTIL READY FOR DOSEvarenicline (CHANTIX CONTINUING MONTH JAIRO) 1 mg tablet Take 1 tablet bymouth twice daily.omeprazole (PRILOSEC) 20 mg capsule Take 1 capsule by mouth daily beforebreakfast. 1/2 hr before meal.albuterol HFA (VENTOLIN HFA) 90 mcg/actuation inhaler Inhale 2 Puffs asinstructed every 4 hours as needed for Wheezing/Shortness of Breath.COMPOUNDED PRESCRIPTION Home nebulizer machine with accessories Dx: Acutebronchitis J20.9, mild intermittent asthma J45.20atorvastatin (LIPITOR) 40 mg tablet Take 1 tablet by mouth once daily.multivitamin tablet Take 1 tablet by mouth once daily.varenicline (CHANTIX) 0.5 mg (11)- 1 mg (42) tablet Take 0.5 mg [id number], then twice daily for 4 days, then 1mg twice daily for duration.promethazine (PHENERGAN) 25 mg tablet Take 25 mg by mouth every 6 hours asneeded.SUMAtriptan (IMITREX) 25 mg tablet Take 25 mg by mouth as needed.No current facility-administered medications on file prior to visit.Social History Marital status: Spouse name: Years of education: Number of children:Social History Main Topics Smoking status: Current Every Day Smoker Packs/day: 0.50 Years: 15.00 Types: Cigarettes Smokeless status: Never Used Comment: 5 cig day Alcohol use: No Drug use: No Sexual activity: Yes Partners with: Male control/protection: NonePhysical Exam Findings:General exam: Normal,Extremeties right knee shows tenderness along the lateral aspect of theknee, both over the lateral border of the patella and over the lateralfemoral condyle.No significant joint effusion is appreciated. There is no restrictionwith extension, but patient limits flexion to 90? due to reported pain.There is no instability with varus, valgus, anterior, or posterior stress.x-ray: No fractures or subluxations are noted.The joint spaces are maintained.Mild osteophyte formation involving both medial and lateral compartments.There is no evidence of joint effusion.The mineralization of the bones is normal.There is no significant soft tissue swelling.Assessment:Right knee sprain, suspect patellar subluxationPlan:1. Patient Instructions: rest, apply ice, elevate and Limit activities2. Patient is fitted for a patellar J brace for stabilizationHandout given for knee rehabilitation exercisessSigned Prescriptions Disp Refills oxaprozin (DAYPRO) 600 mg tablet 30 tablet 1 Sig: Take 1 tablet by mouth twice daily.Rubio Sheppard, DO PROGRESS HNO ID: [id number]: Cata Spencer 01-07-2017 [facility] hospitalmarco antonio RNService: [place] ([id number]) (none)Author Type: (none)Type: Progress NotesFiled: 01/07/2017 11:37 AMNote Text:AMB ROOMING INTAKE FLOWSHEET DATAPainPain Score: 10/31Pain Location: Knee-RightDescription: Throbbing, SharpDuration Amount of Time: 5Duration Units: DaysFrequency: ContinuousIntervention: Medication, Cold (crutches)Patient presents with:New Patient: 5 days post right knee injury on 01-02-17, REF: Bryan Anglin [id number]. presents with friend and HCPA and POA. She states 5 days ago she washelping friend move and twisted her right knee and felt a pop. She didnot fall. She went to Urgent Care the day after injury. She states shedid have some ecchymosis at time of injury, but none visible now. She hasbeen using crutches with PWB and states is painful to extend knee. Painis lateral knee radiating to back. She states it is swollen. She hasbeen taking ibuprofen 400 mg twice daily and naproxen 500 mg twice daily.She states this is doing nothing for pain. Pt. instructed that she is notto be taking 2 different NSAIDS at the same time. She has been icing andelevating. She has not been working outside of home. She is on disabilityfor hx of TIA's and seizures and depression. cnov on 2017-01-07 CNOV Office Visit Normal 01-07-2017 Gaudencio and (SOLO) ----[facility] ([id number]) 1975 FDate Time Provider Xgtsehcfrv30/17/17 11:20 AM RUBIO SHEPPARD [facility], we recorded the following information about you:Cata Almonte RN 01/07/2017 ([id number]) 11:37 AM SignedAMB BUTCH RUEDA FLOWSHEET DATAPainPain Score: 10/31Pain Location: Knee-RightDescription: Throb spencer, SharpDuration Amount of Time: 5Duration Units: DaysFrequency: ContinuousIntervention: Medi cation, Cold (crutches)Patient presents with:New Patient: 5 days post right knee injury on 7, REF: Bryan Anglin [id number]. presents with friend and HCPA and POA. She states 5 days ago she wa shelping friend move and twisted her right knee and felt a pop. She did notfall. She went to Urgent Care the day after injury. She states she did havesome ecchymosis at time of injury, but none vis ible now. She has been usingcrutches with PWB and states is painful to extend knee. Pain is lateral kneeradiating to back. She states it is swollen. She has been taking [id number] mg twice daily and naproxen 500 mg twice daily. She states this is doingnothing for pain. Pt. instructed that isadora rosado is not to be taking 2 differentNSAIDS at the same time. She has been icing and elevating. She has not beenworking outside of home. She is on disability for hx of TIA's and seizures anddepression.Osito Sheppard, DO 01/07/2017 11:37 AM Isamar Duvall presents with pain in the right knee. Symptoms began 5 daysago when she fell going down a flight of stairs and since then have beenpres ent daily. The pain is rated as 8 on a scale of 1- 10. The patient wasinjured, in a fall. She w as [facility] where she had x-rays of [facility] that showed no acute abnormality, and was r eferred here for follow-up.She has prior history of arthroscopic surgery to the right knee 8 years ag o.PAST MEDICAL HISTORYDiagnosis Date- Asthma- C. difficile colitis- Cervical high risk human pap illomavirus (HPV) DNA test positive 2010- Cervical radiculopathy 04/09/2011- Hx-TIA (transient ischemic attack)- Hyperlipidemia- Mild intermittent asthma without complication 03/09/2015- Marlon ivey ([facility])PAST SURGICAL HISTORYProcedure Laterality Date- COLONOSCOPY 12/03/13- DANDamp;C, DIAG AND /OR THERAPEUTIC 06/12/11 Dilation ANDamp; curettage- EGD 12/03/13- HYSTEROSCOPY, DIAGNOSTIC (SE PARATE 06/12/11 Hysteroscopy- LAP HYSTERECTOMY FOR UTERUS 250G OR LESS 11/25/12 with left salipinoo pherectomy AND RIGHT OVARYCurrent Outpatient Prescriptions on File Prior to Visit:codeine-guaiFENesin (GUAIFENESIN AC) 10-100 mg/5 mL syrup Take 10 mL by mouthfour times daily as needed.levETIRAceta m ER (KEPPRA XR) 750 mg 24 hr tablet Take 1 tablet by mouth twicedaily.topiramate (TOPAM AX) 200 mg tablet Take 1 tablet by mouth twice daily.albuterol (PROVENTIL) 5 mg/mL nebu Inh teresa 0.5 mL as instructed every 4 hours asneeded.fluticasone-vilanterol (BREO ELLIPTA) 200-25 mcg/do se inhaler Inhale 1Inhalation as instructed once daily. Inhale one puff once daily. DO NOT CLICKOPEN UNTIL READY FOR DOSEvarenicline (CHANTIX CONTINUING MONTH JAIRO) 1 mg tablet Take 1 tablet by mout htwice daily.omeprazole (PRILOSEC) 20 mg capsule Take 1 capsule by mouth daily beforebreakfast. 1/2 h r before meal.albuterol HFA (VENTOLIN HFA) 90 mcg/actuation inhaler Inhale 2 Puffs asinstructed every 4 hours as needed for Wheezing/Shortness of Breath.COMPOUNDED PRESCRIPTION Home nebulizer machine with accessories Dx: Acutebronchitis J20.9, mild intermittent asthma J45.20atorvastatin (L IPITOR) 40 mg tablet Take 1 tablet by mouth once daily.multivitamin tablet Take 1 tablet by mout h once daily.varenicline (CHANTIX) 0.5 mg (11)- 1 mg (42) tablet Take 0.5 mg daily x3days,then twi ce daily for 4 days, then 1mg twice daily for duration.promethazine (PHENERGAN) 25 mg tablet Hamilton e 25 mg by mouth every 6 hours asneeded.SUMAtriptan (IMITREX) 25 mg tablet Take 25 mg by mouth a s needed.No current facility-administered medications on file prior to visit.Social History Marital status: Spouse name: Years of education: Number of children:Social History Main Topics Smoking status: Current Every Day Smoker Packs/day: 0.50 Years: 15.00 Types: Cigarettes Smok eless status: Never Used Comment: 5 cig day Alcohol use: No Drug use: No Sexual activity: Yes Partner s with: Male control/protection: NonePhysical Exam Findings:General exam: Kaylie l,Extremeties right knee shows tenderness along the lateral aspect of the knee,both over the later al border of the patella and over the lateral femoralcondyle.No significant joint effusion i s appreciated. There is no restriction withextension, but patient limits flexion to 90? due to report ed pain. There is noinstability with varus, valgus, anterior, or posterior stress.x-ray: No f ractures or subluxations are noted.The joint spaces are maintained.Mild osteophyte formation involvi ng both medial and lateral compartments.There is no evidence of joint effusion.The mineralization of the bones is normal.There is no significant soft tissue swelling.Assessment:Right kn ee sprain, suspect patellar subluxationPlan:1. Patient Instructions: rest, apply ice, elevate and Limit activities2. Patient is fitted for a patellar J brace for stabilizationHandout given f or knee rehabilitation exercisessSigned Prescriptions Disp Refills oxaprozin (DAYPRO) 600 mg ta blet 30 tablet 1 Sig: Take 1 tablet by mouth twice daily.Romero Patel Ma 01/07/2017 12:03 PM SignedPT ASSESSMENT - CASTING ROOMKathy presents for Application of brace.Applied DonJoy Drytex Lat J Hinge knee brace size large to Right knee.Patient tolerated well.Patient has b michelen instructed in Care and proper application of brace. Patientsigned DonJoy PPA electronically an d was given a printed copy of PPA due tohaving no email address. Patient given surveying or spatial science technician's instruc tion pamphlet.Patient verbalized understanding.Jia Izquierdo Provider: AMADOR ANGLIN (BRITTANY Luna) [[id number]]Allergies As of Date: 01/07/2017 Noted Allergy ReactionLATEX 11/02/2013 14 - Other: See CommentsTAPE (ADHESIVE TAPE (ROSINS)) 11/02/2013 14 - Other: See CommentsVICODIN ( HYDROCODONE-ACETAMINOPHE*02/02/2010 2 - RashZOCOR (SIMVASTATIN) 03/28/2015 17 - MyalgiaZOFRA N (ONDANSETRON HCL (PF)) 07/24/2011 14 - Other: See Comments Comments: HeadachesDate Reviewed: 12/22Reviewed by: Cata Almonte RN - Fully AssessedReason for Visit: New Patient [172] Cmt : 5 days post right knee injury on 01-02-17, REF: Bryan Anglin xray [id number] Visit Diagno sis:Patellar subluxation, right, subsequent encounter [S83.001D]Order(s):oxaprozin (DAYPRO) 600 mg tabletTake 1 tablet by mouth twice daily.Disp: 30 tabletRfl: 1Prescriptions as of 01/07/2017 Sig: CODEINE 10 MG-GUAIFENESIN 100* Take 10 mL by mouth four time* LEVETIRACETAM ER 750 MG TABLE* Take 1 tablet by mouth twice * TOPIRAMATE 200 MG TABLET Take 1 tablet by mouth twice * ALBUTEROL SULFATE CONCENTRATE* Inhale 0.5 mL as instructed e* FLUTICASONE 200 MCG-VILANTER O* Inhale 1 Inhalation as instru* VARENICLINE 1 MG TABLET Take 1 tablet by mouth twice * OMEPRAZOLE 20 MG CAPSULE,BENIGNO* Take 1 capsule by mouth daily* ALBUTEROL SULFATE HFA 90 MCG/* Inhale 2 Puffs as i nstructed * COMPOUNDED PRESCRIPTION Home nebulizer machine with a* ATORVASTATIN 40 MG TABLET Ta ke 1 tablet by mouth once d* MULTIVITAMIN TABLET Take 1 tablet by mouth once d* OXAPROZIN 600 MG TAB LET Take 1 tablet by mouth twice * VARENICLINE 0.5 MG (11)-1 MG * Take 0.5 mg daily x3days, the* CA OMETHAZINE 25 MG TABLET Take 25 mg by mouth every 6 h* SUMATRIPTAN 25 MG TABLET Take 25 mg by mouth a s needed.Medication notes this encounter VARENICLINE 0.5 MG (11)-1 MG (42) TABLETS IN A DOSE PACK >> Cata Almonte RN 01/07/2017 11:02 AM >> CATA ALMONTE RN Jan 07, 2017 11:02 AM No longer usingProblem List As Of Date 01/07/2017 Noted Resolved Abdominal pain, rig ht lower quadrant [R10.31] INVALID FOR*05/18/2015 Other and unspecified ovarian cyst [N83.209] INVAL ID FOR*05/18/2015 Cervical radiculopathy [M54.12] INVALID FOR*05/18/2015 Cervicalgia [M54.2] INVALID FOR* Seizure disorder [G40.909] INVALID FOR* Irritable bowel syndrome with diarrhea [K58.0] INVALI D FOR* Mild intermittent asthma without complication [*INVALID FOR* Tobacco use disorder [F17.20 0] INVALID FOR* Chondral loose body of right knee joint [M23.41]INVALID FOR* Chronic pain of right k nee [M25.561, G89.29] INVALID FOR* Reactive depression [F32.9] INVALID FOR* Obesity, Class I, BMI 3 0-34.9 [E66.9] INVALID FOR*Prescriptions ordered this encounter Disp Refills Start End OXAPROZIN 600 MG TABLET 30 t* 1 01/07/2017 Route: ORAL Sig: Take 1 tablet by mouth twice daily.Medications Disc ontinued During This Encounter naproxen (NAPROSYN) 500 mg tablet 60 t* 2 12/26/2016 01/07/2017 Route: ORAL Sig: Take 1 tablet by mouth twice daily as needed. Take with food. Disc: Changing Therapy/Dosag e FormEncounter Number: [id number] Status:Closed by RUBIO SHEPPARD DO, V on 01/07/17 xr knee 4v ap/pa both+lat/gilda rt on 2017-01-03 XR KNEE 4V AP/PA * * *Final Report* * *DATE OF [facility] 01-03-2017 [place] BOTH+LAT/GILDA RT EXAM: Jan 03 2017 6:02PM [facility] - XR KNEE 4V AP/PA [place] BOTH+LAT/GILDA RT / [id number] REASON: Unspecified injury of right lower leg, initial encounter * * * * Physician Interpretation * * * * EXAM TITLE: XR KNEE 4V AP/PA BOTH+LAT/GILDA RTEXAM DATE/TIME: 01/03/2017 6:02 PMCOMPARISON: Knee x-ray on 07/19/2015CLINICAL INDICATION/HISTORY: FallTECHNIQUE: AP, lateral, sunrise and tunnel views of the right knee are presented.FINDINGS:No fractures or subluxations are noted.The joint spaces are maintained.Mild osteophyte formation involving both medial and lateral compartments.There is no evidence of joint effusion.The mineralization of the bones is normal.There is no significant soft tissue swelling.IMPRESSION: Mild degenerative changes of the right knee. No acute fractures.Payroll And Benefits Assistant: ADELAIDA Transcribe Date/Time: Jan 03 2017 6:26PDictated by : LES GOTTI MDThis examination was interpreted and the report reviewed and electronically signed by: LES GOTTI MD on Jan 03 2017 6:29PM [id number] progress on 2016-12 PROGRESS HNO ID: [id number]: Juliana Pittman Normal 01-03-2017 [facility] () Isatu Pham: Fabricio ([id number]) (none)Author Type: TechnicianType: Progress NotesFiled: 01/03/2017 5:57 PMNote Text: Radiology Service Progress NotePATIENT NAME: Chelle DuvallMRN: [id number] OF SERVICE: January 03, 2017TIME: 5:47 PMPATIENT IDENTITY VERIFICATION COMPLETED USING TWO (2) METHODS: Patientconfirmed name verbally and Date of .PATIENT GENDER DATA: Female. status: : NoBreastfeeding status: NO.PATIENT RELEVANT IMPLANT DATA REVIEWED: Not ApplicableRADIOLOGY DEPARTMENT: General X-ray: Exam(s) Completed: Lower ExtremityX-Ray(s): Knee, AP / Lat / Tunne / Merchant Right and Wt. Bearing:PERIPHERAL IV DATA: Not applicableSIGNED BY: RT [facility]Be[facility] 2016 5:47 PM PROGRESS HNO ID: [id number]: Normal 12-22 [facility] ([facility]) Jayne: Fabricio ([id number]) (none)Author Type: Nurse PractitionerType: Progress NotesFiled: 01/03/2017 7:25 PMNote Text:HPIHPI Chelle Duvall is a 41 year old female who presents today for CC ofright knee injury after fall. This started 1 day ago. Has tried tylenol,ibuprofen, aleve with little relief. Symptoms are worsened by movement andtouching. Denies history of surgery or injury to right knee. Deniespossibility of being .Review of SystemsConstitutional: Negative for chills and fever.PAST MEDICAL HISTORYDiagnosis Date- Asthma- C. difficile colitis- Cervical high risk human papillomavirus (HPV) DNA test positive 2010- Cervical radiculopathy 04/09/2011- Hyperlipidemia- Mild intermittent asthma without complication 03/09/2015- Seizures (HCC)PAST SURGICAL HISTORYProcedure Laterality Date- COLONOSCOPY 12/03/13- DANDC, DIAG AND/OR THERAPEUTIC 06/12/11 Dilation AND curettage- EGD 12/03/13- HYSTEROSCOPY, DIAGNOSTIC (SEPARATE 06/12/11 Hysteroscopy- LAP HYSTERECTOMY FOR UTERUS 250G OR LESS 11/25/12 with left salipinoopherectomy AND RIGHT OVARYALLERGIES Latex; Tape [Adhesive Tape (Rosins)]; Vicodin[Hydrocodone-Acetaminophe n]; Zocor [Simvastatin]; Zofran [Ondansetron Hcl(Pf)]MEDICATIONSnaproxen (NAPROSYN) 500 mg tablet Take 1 tablet by mouth twice daily asneeded. Take with food.codeine-guaiFENesin (GUAIFENESIN AC) 10-100 mg/5 mL syrup Take 10 mL bymouth four times daily as needed.levETIRAcetam ER (KEPPRA XR) 750 mg 24 hr tablet Take 1 tablet by mouthtwice daily.topiramate (TOPAMAX) 200 mg tablet Take 1 tablet by mouth twice daily.albuterol (PROVENTIL) 5 mg/mL nebu Inhale 0.5 mL as instructed every 4hours as needed.fluticasone-vilanterol (BREO ELLIPTA) 200-25 mcg/dose inhaler Inhale 1Inhalation as instructed once daily. Inhale one puff once daily. DO NOTCLICK OPEN UNTIL READY FOR DOSEomeprazole (PRILOSEC) 20 mg capsule Take 1 capsule by mouth daily beforebreakfast. 1/2 hr before meal.albuterol HFA (VENTOLIN HFA) 90 mcg/actuation inhaler Inhale 2 Puffs asinstructed every 4 hours as needed for Wheezing/Shortness of Breath.COMPOUNDED PRESCRIPTION Home nebulizer machine with accessories Dx: Acutebronchitis J20.9, mild intermittent asthma J45.20SUMAtriptan (IMITREX) 25 mg tablet Take 25 mg by mouth as needed.atorvastatin (LIPITOR) 40 mg tablet Take 1 tablet by mouth once daily.multivitamin tablet Take 1 tablet by mouth once daily.varenicline (CHANTIX) 0.5 mg (11)- 1 mg (42) tablet Take 0.5 mg [id number], then twice daily for 4 days, then 1mg twice daily for duration.varenicline (CHANTIX CONTINUING MONTH JAIRO) 1 mg tablet Take 1 tablet bymouth twice daily.promethazine (PHENERGAN) 25 mg tablet Take 25 mg by mouth every 6 hours asneeded.FAMILY HISTORYProblem Relation Age of Onset- Adopted: YesSocial HistorySubstance Use Topics- Smoking status: Current Every Day Smoker Packs/day: 0.50 Years: 15.00 Types: Cigarettes- Smokeless tobacco: Never Used Comment: 5 cig day- Alcohol use NoBlood pressure 100/80, pulse 60, temperature (!) 35.7 ?C (96.2 ?F),temperature source Tympanic, resp. rate 16, weight 82.4 kg (181 lb 9.6oz), last menstrual period 10/23/2012.Physical ExamCardiovascular:Pulses: Popliteal pulses are 2+ on the right side Dorsalis pedis pulses are 2+ on the right side, and 2+ on the leftside. Posterior tibial pulses are 2+ on the right side, and 2+ on the leftside.Musculoskeletal: Right knee: She exhibits decreased range of motion, swelling,effusion and bony tenderness. She exhibits no ecchymosis, no deformity, nolaceration, no erythema and normal alignment.Unable to do soft tissue/laxity testing or palpation d/t severity of pain.ASSESSMENT/PLAN:1. Right knee injury, initial encounter - ICD9: 959.7, ICD10: S89.91XA-no bony abnormality on xray-discussed RICE treatment-due to severity of pain will refer to ortho, non weight bearing untilseen by ortho-ibuprofen for pain discussed-crutches and carlene wrap provided- XR KNEE GENERAL 4V AP BOTH/PA BOTH/LAT/MERC RTPrescription instructions reviewed with patient as applicable. Patientadvised if symptoms do not improve or if symptoms worsen sooner, tocontact the office for further evaluation by either myself or theirprformerly [facility] centerry care physician. Potential red flag symptoms discussed with thepatient. Reviewed appropriate action plan to take if red flag symptomsoccur. Patient agreeable to treatment plan.ADRIAN Martinez on 2017-01-03 CNOV Office Visit Normal 01-03-2017 Gaudencio and ([facility]) --------CHELLE DUVALL Clin ic ([id number]) 1975 FDate Time Provider Erjguwyeem43/13/17 5:15 PM AMADOR ANGLIN) [facility] During [place] your visit today, we recorde d the following information about you: Temperature Pulse Respiration Blood (000 00) pressure 96.2 degrees 60/min [place] 16/minute 100/80 Weight 82.4 kgAmador Anglin CNP 01/03/2017 7:25 PM SignedHPIHPI Chelle Duvall is a 41 year old female who presents today for CC of rightknee injury after fall. This started 1 day ago . Has tried tylenol, ibuprofen,aleve with little relief. Symptoms are worsened by movement and cathi derrell.Denies history of surgery or injury to right knee. Denies possibility of being.Review of S ystemsConstitutional: Negative for chills and fever.PAST MEDICAL HISTORYDiagnosis Date- Asthm a- C. difficile colitis- Cervical high risk human papillomavirus (HPV) DNA test positive 2010- Cervical radiculopathy 04/09/2011- Hyperlipidemia- Mild intermittent asthma without complication 03/09/2015- Marlon ivey ([facility])PAST SURGICAL HISTORYProcedure Laterality Date- COLONOSCOPY 12/03/13- DANDamp;C, DIAG AND /OR THERAPEUTIC 06/12/11 Dilation ANDamp; curettage- EGD 12/03/13- HYSTEROSCOPY, DIAGNOSTIC (SE PARATE 06/12/11 Hysteroscopy- LAP HYSTERECTOMY FOR UTERUS 250G OR LESS 11/25/12 with left salipinoo pherectomy AND RIGHT OVARYALLERGIES Latex; Tape [Adhesive Tape (Rosins)]; Vicodin[Hydrocodone-Acetamin ophen]; Zocor [Simvastatin]; Zofran [Ondansetron Hcl (Pf)]MEDICATIONSnaproxen (NA PROSYN) 500 mg tablet Take 1 tablet by mouth twice daily as needed.Take with food.codeine-guaiFENesin ( AIFENESIN AC) 10-100 mg/5 mL syrup Take 10 mL by mouthfour times daily as needed.levETIRAcetam ER (KEP PRA XR) 750 mg 24 hr tablet Take 1 tablet by mouth twicedaily.topiramate (TOPAMAX) 200 mg tablet Take 1 tablet by mouth twice daily.albuterol (PROVENTIL) 5 mg/mL nebu Inhale 0.5 mL as instructed every 4 ria rs asneeded.fluticasone-vilanterol (BREO ELLIPTA) 200-25 mcg/dose inhaler Inhale 1Inhalation as instru cted once daily. Inhale one puff once daily. DO NOT CLICKOPEN UNTIL READY FOR DOSEomeprazole (PRILOSEC ) 20 mg capsule Take 1 capsule by mouth daily beforebreakfast. 1/2 hr before meal.albuterol HFA (VENTOLIN HFA) 90 mcg/actuation inhaler Inhale 2 Puffs asinstructed every 4 hours as needed for Wheezing/Shortnes s of Breath.COMPOUNDED PRESCRIPTION Home nebulizer machine with accessories Dx: Acutebronchitis J20.9, m ild intermittent asthma J45.20SUMAtriptan (IMITREX) 25 mg tablet Take 25 mg by mouth as needed.atorvasta tin (LIPITOR) 40 mg tablet Take 1 tablet by mouth once daily.multivitamin tablet Take 1 tablet by mout h once daily.varenicline (CHANTIX) 0.5 mg (11)- 1 mg (42) tablet Take 0.5 mg daily x3days,then twice meghana y for 4 days, then 1mg twice daily for duration.varenicline (CHANTIX CONTINUING MONTH JAIRO) 1 mg t ablet Take 1 tablet by mouthtwice daily.promethazine (PHENERGAN) 25 mg tablet Take 25 mg by mouth e very 6 hours asneeded.FAMILY HISTORYProblem Relation Age of Onset- Adopted: YesSocial HistorySubstance U se Topics- Smoking status: Current Every Day Smoker Packs/day: 0.50 Years: 15.00 Types: Cigarettes- Smo keless tobacco: Never Used Comment: 5 cig day- Alcohol use NoBlood pressure 100/80, pulse 60, temperatur e (!) 35.7 ?C (96.2 ?F), temperaturesource Tympanic, resp. rate 16, weight 82.4 kg (181 lb 9.6 oz), las t menstrualperiod 10/23/2012.Physical ExamCardiovascular:Pulses: Popliteal pulses are 2+ on the right s jorge Dorsalis pedis pulses are 2+ on the right side, and 2+ on the left side. Posterior tibial pulses are 2+ on the right side, and 2+ on the left side.Musculoskeletal: Right knee: She exhibits decreased range of motion, swelling, effusion andbony tenderness. She exhibits no ecchymosis, no deformity, no laceration, noerythema and normal alignment.Unable to do soft tissue/laxity testing or palpation d/t sev erity of pain.ASSESSMENT/PLAN:1. Right knee injury, initial encounter - ICD9: 959.7, ICD10: S89.91XA -no bony abnormality on xray-discussed RICE treatment-due to severity of pain will refer to ortho, no n weight bearing until seen byortho-ibuprofen for pain discussed-crutches and carlene wrap provided- XR KN EE GENERAL 4V AP BOTH/PA BOTH/LAT/MERC RTPrescription instructions reviewed with patient as applicable. Patient advisedif symptoms do not improve or if symptoms worsen sooner, to contact the officefor furthe r evaluation by either myself or their primary care physician.Potential red flag symptoms discussed with the patient. Reviewed appropriateaction plan to take if red flag symptoms occur. Patient agreeable to treatmentplan.Holli Martinez CNP 01/03/2017 6:47 PM SignedASSESSMENT/PLAN:1. Rig ht knee injury, initial encounter - ICD9: 959.7, ICD10: S89.91XA-discussed RICE treatment-due to severi ty of pain will refer to ortho, non weight bearing until seen byortho-ibuprofen for pain d iscussed- XR KNEE GENERAL 4V AP BOTH/PA BOTH/LAT/MERC RTReferring Provider: SELF [200]Allergies As of Da te: 01/03/2017 Noted Allergy ReactionLATEX 11/02/2013 14 - Other: See CommentsTAPE (ADHESIVE TAPE (ROSINS)) 11/02/2013 14 - Other: See CommentsVICODIN (HYDROCODONE-ACETAMINOPHE* 2 - RashZOCOR (SIMVASTATIN) 03/28/2015 17 - MyalgiaZOFRAN (ONDANSETRON HCL (PF)) 07/23 14 - Other: See Comments Comments: HeadachesDate Reviewed: 01/03/2017Reviewed by: Alondra marks ([facility]) [facility] [place] AssessedReason for Visit: Knee Pain [132] Cmt: x1 dayPrimary Visit Diagnosis:R ight knee injury, initial encounter [S89.91XA]Order(s):XR KNEE GENERAL 4V AP BOTH/PA BOTH/LAT/MERC RT [12 67986] Order #: [id number] FUTURE CONSULT TO ORTHOPAEDICS [2823] Order #: [id number]: 1Prescription s as of 01/03/2017 Sig: NAPROXEN 500 MG TABLET Take 1 tablet by mouth twice * CODEINE 10 MG-GUAIFENESIN 100* Take 10 mL by mouth four time* LEVETIRACETAM ER 750 MG TABLE* Take 1 tablet by mouth twice * TOPI RAMATE 200 MG TABLET Take 1 tablet by mouth twice * ALBUTEROL SULFATE CONCENTRATE* Inhale 0.5 mL a s instructed e* FLUTICASONE 200 MCG-VILANTERO* Inhale 1 Inhalation as instru* OMEPRAZOLE 20 MG CAP THAIS,BENIGNO* Take 1 capsule by mouth daily* ALBUTEROL SULFATE HFA 90 MCG/* Inhale 2 Puffs as instructed * COMPOUNDED PRESCRIPTION Home nebulizer machine with a* SUMATRIPTAN 25 MG TABLET Take 25 mg by mouth a s needed. ATORVASTATIN 40 MG TABLET Take 1 tablet by mouth once d* MULTIVITAMIN TABLET Take 1 t ablet by mouth once d* VARENICLINE 0.5 MG (11)-1 MG * Take 0.5 mg daily x3days, the* VARENICLINE 1 M G TABLET Take 1 tablet by mouth twice * PROMETHAZINE 25 MG TABLET Take 25 mg by mouth every 6 h*Medicatio n notes this encounter VARENICLINE 1 MG TABLET >> Ofelia Araujo Ma 01/03/2017 5:15 PM >> OFELIA ELIAS MA FriJan 03, 2017 5:15 PM Not taking PROMETHAZINE 25 MG TABLET >> Ofelia Araujo Ma 01/03/2017 5:15 PM >> OFELIA ARAUJO MA FriJan 03, 2017 5:15 PM Not usingProblem List As Of Date 01/03/2017 Noted Resolved Abdominal pain, right lower quadrant [R10.31] INVALID FOR*05/18/2015 Other and uns pecified ovarian cyst [N83.209] INVALID FOR*05/18/2015 Cervical radiculopathy [M54.12] INVAL ID FOR*05/18/2015 Cervicalgia [M54.2] INVALID FOR* Seizure disorder [G40.909] INVALID FOR* Irrit able bowel syndrome with diarrhea [K58.0] INVALID FOR* Mild intermittent asthma without complication [*INVALID FOR* Tobacco use disorder [F17.200] INVALID FOR* Chondral loose body of right knee joint [M2 3.41]INVALID FOR* Chronic pain of right knee [M25.561, G89.29] INVALID FOR* Reactive depression [F32.9] INVALID FOR* Obesity, Class I, BMI 30-34.9 [E66.9] INVALID FOR* Other instructions from your clini yany: ASSESSMENT/PLAN: 1. Right knee injury, initial encounter - ICD9: 959.7, ICD10: S89.91XA -disc ussed RICE treatment -due to severity of pain will refer to ortho, non weight bearing until seen by ortho -ibuprofen for pain discussed - XR KNEE GENERAL 4V AP BOTH/PA BOTH/LAT/MERC RTEncounter Nu mber: [id number] Status:Closed by AMADOR ANGLIN CNP on 01/03/17 cnpn on 2016-12-27 CNPN Telephone Normal 12-27-2016 [place] (LEIDYWS) --------CHELLE DUVALL Clin ic ([id number]) 1975 FDate Time Provider Bffgesyxoy60/6/17 MARK BEDOLLA III During your visit Paul smith today, we recorded the follo wing information about you:Michaela Gwendolyn Psr 12/27/2016 12:51 PM SignedKathy ([id number]) Ki is calling asking to have a nurse call her. It's regardingher knee and chest pain. Please call her at [phone].Patient has been identified by name and birthdate.Person calling: selfCall patient at: on [phone] (manuelito e) [phone] (cell)Was an appointment scheduled: Sabine Swain Ma 12/27/2016 1:40 PM SignedContacted pt and she was in to see Dr. Bedolla yesterday and was given rx for hercoug h and viral symptoms. Pt advised that she is coughing so hard she cant keepanything down. I advised cough medication given by pcp are stronger than OTCand there is not a stronger rx we normally pres cribe. Pt was advised to keepdoing breathing treatments and humidifier to help with chest.Pt also stat ed that pain in knee I radiating to ankle not sure if xray wasneeded. I advised pcp is out of office but can review on Friday when in. I didtell pt if pain is intolerable this weekend [facility] beassessed.Laurita Leblanc MD 12/27/2016 4:02 PM SignedagreeMark Bedolla III MD 12/27/2016 4:13 PM SignedShe may also go [facility]. I believe x-rayscould be performed though I really do not think an x-ray would be necessaryunless her pain int ensifies.Mark Bedolla III, MD, FAAFPAllergies As of Date: 12/27/2016 Noted Allergy ReactionLATEX 2013 14 - Other: See CommentsTAPE (ADHESIVE TAPE (ROSINS)) 11/02/2013 14 - Other: See CommentsVICODIN ( HYDROCODONE-ACETAMINOPHE*02/02/2010 2 - RashZOCOR (SIMVASTATIN) 03/28/2015 17 - MyalgiaZOFRAN (ONDANSET CALEB HCL (PF)) 07/24/2011 14 - Other: See Comments Comments: HeadachesDate Reviewed: 12/26/2016Reviewed by: Kim Arroyo Ma - Fully AssessedReason for Visit: Patient Request [1696] Cmt: Speak with triag ePrescriptions as of 12/27/2016 Sig: AZITHROMYCIN 250 MG TABLET Take 2 tablets day one, then,* NAPR OXEN 500 MG TABLET Take 1 tablet by mouth twice * CODEINE 10 MG-GUAIFENESIN 100* Take 10 mL by mouth fou r time* LEVETIRACETAM ER 750 MG TABLE* Take 1 tablet by mouth twice * TOPIRAMATE 200 MG TABLET Hamilton e 1 tablet by mouth twice * ALBUTEROL SULFATE CONCENTRATE* Inhale 0.5 mL as instructed e* FLUTICASONE 20 0 MCG-VILANTERO* Inhale 1 Inhalation as instru* VARENICLINE 0.5 MG (11)-1 MG * Take 0.5 mg daily x3days, the* VARENICLINE 1 MG TABLET Take 1 tablet by mouth twice * OMEPRAZOLE 20 MG CAPSULE,BENIGNO* Take 1 capsule by mouth daily* PROMETHAZINE 25 MG TABLET Take 25 mg by mouth every 6 h* ALBUTEROL SULFATE HFA 90 MCG /* Inhale 2 Puffs as instructed * COMPOUNDED PRESCRIPTION Home nebulizer machine with a* SUMATRIPTAN 25 MG TABLET Take 25 mg by mouth as needed. ATORVASTATIN 40 MG TABLET Take 1 tablet by mouth once d* MULT IVITAMIN TABLET Take 1 tablet by mouth once d*Problem List As Of Date 12/27/2016 Noted Resolved Ab dominal pain, right lower quadrant [R10.31] INVALID FOR*05/18/2015 Other and unspecified ovarian cyst [N8 3.209] INVALID FOR*05/18/2015 Cervical radiculopathy [M54.12] INVALID FOR*05/18/2015 Cervicalgia [ M54.2] INVALID FOR* Seizure disorder [G40.909] INVALID FOR* Irritable bowel syndrome with diarrhea [K58. 0] INVALID FOR* Mild intermittent asthma without complication [*INVALID FOR* Tobacco use disorder [F17.20 0] INVALID FOR* Chondral loose body of right knee joint [M23.41]INVALID FOR* Chronic pain of right knee [ M25.561, G89.29] INVALID FOR* Reactive depression [F32.9] INVALID FOR* Obesity, Class I, BMI 30-34. 9 [E66.9] INVALID FOR* Status:Closed by GHANSHYAM LEBLANC on 12/27/16 progress on 2016-12 PROGRESS HNO ID: [id number]: Mark Spencer 12-26-2016 [facility] Cebul IIIService: (none)Author Type: Fabricio ([id number]) PhysicianType: Progress NotesFiled: 12/26/2016 6:33 PMNote Text:SUBJECTIVE: This is a 41 year old female that is here today for ER [facility]Up. [facility] ER for eval. of severe cough and chest pain. Dx ofchest wall pain. Tx with naproxyn. Now she states she has coughproductive of green phlegm. No fever.Still smoking but down to 5 cigarettes/day. . Off chantix since it causedhallucinations. No fever.2. Twisted R knee yesterday while on steps. Pain maximally lat aspect ofr kneePAST MEDICAL HISTORYDiagnosis Date- Asthma- C. difficile colitis- Cervical high risk human papillomavirus (HPV) DNA test positive 2010- Cervical radiculopathy 04/09/2011- Hyperlipidemia- Mild intermittent asthma without complication 03/09/2015- Seizures (HCC)Current Outpatient Prescriptions on File Prior to Visit:levETIRAcetam ER (KEPPRA XR) 750 mg 24 hr tablet Take 1 tablet by mouthtwice daily.topiramate (TOPAMAX) 200 mg tablet Take 1 tablet by mouth twice daily.albuterol (PROVENTIL) 5 mg/mL nebu Inhale 0.5 mL as instructed every 4hours as needed.fluticasone-vilanterol (BREO ELLIPTA) 200-25 mcg/dose inhaler Inhale 1Inhalation as instructed once daily. Inhale one puff once daily. DO NOTCLICK OPEN UNTIL READY FOR DOSEomeprazole (PRILOSEC) 20 mg capsule Take 1 capsule by mouth daily beforebreakfast. 1/2 hr before meal.albuterol HFA (VENTOLIN HFA) 90 mcg/actuation inhaler Inhale 2 Puffs asinstructed every 4 hours as needed for Wheezing/Shortness of Breath.COMPOUNDED PRESCRIPTION Home nebulizer machine with accessories Dx: Acutebronchitis J20.9, mild intermittent asthma J45.20SUMAtriptan (IMITREX) 25 mg tablet Take 25 mg by mouth as needed.atorvastatin (LIPITOR) 40 mg tablet Take 1 tablet by mouth once daily.multivitamin tablet Take 1 tablet by mouth once daily.codeine-guaiFENesin (GUAIFENESIN AC) 10-100 mg/5 mL syrup Take 10 mL bymouth four times daily as needed.varenicline (CHANTIX) 0.5 mg (11)- 1 mg (42) tablet Take 0.5 mg orqbtq0tnsz, then twice daily for 4 days, then 1mg twice daily for duration.varenicline (CHANTIX CONTINUING MONTH JAIRO) 1 mg tablet Take 1 tablet bymouth twice daily.promethazine (PHENERGAN) 25 mg tablet Take 25 mg by mouth every 6 hours asneeded.No current facility-administered medications on file prior to visit.FAMILY HISTORYProblem Relation Age of Onset- Adopted: YesSocial HistorySubstance Use Topics- Smoking status: Current Every Day Smoker Packs/day: 0.50 Years: 15.00 Types: Cigarettes- Smokeless tobacco: Never Used Comment: 5 cig day- Alcohol use NoBP 118/88 (BP Site: Left Arm, BP Position: Sitting, BP Cuff Size: RegularAdult) Pulse 76 Temp 36.6 ?C (97.8 ?F) (Tympanic) Resp 14 Wt 80.7kg (178 lb) LMP 10/23/2012 BMI 30.55 kg/m2.OBJECTIVE:APPEARANCE Well appearing, alert, in no acute distress, well-hydrated,well nourished., occasional coughNECK Negative findings: no asymmetry, masses, or scars, no adenopathy,trachea midline and normal to palpitationHEART RRR with normal S1 and S2, no murmurs, no gallops, no JVDappreciatedLUNG rhonchi diffuselyEXTREMITIES mild swelling R knee with tenderness lateral joint line. Painwith resisted valgus distractionASSESSMENT:L ant chest muscle strainacute bronchitisstrain R knee, acutetobacco use disorderPLAN:biofreeze as needed for chest muscle strainnaprosyn 500mg twice/day as needed for painrobitussin AC 1-2 tsp every 4 hrs as needed for coughzpack as directedtry to reduce smokingflu shot givenSYMONE Hernandez III MD PROGRESS HNO ID: [id number]: Kim Johanna 12-26-2016 [facility] Cruz Martin: (none)Author Type: [place] ([id number]) (none)Type: Progress NotesFiled: 12/26/2016 6:33 PMNote Text:41 year old female here for INACTIVATED INFLUENZA VACCINE. SeasonPatient is identified by name and date of : Yes [] CONTRAINDICATIONS colorenhanced sectionAge less than 6 months? NoAllergy to eggs, chicken, chicken feathers, or chicken dander? NoAllergy to thimerosal (a preservative) or formaldehyde? NoHistory of severe reaction to any vaccine component or a previous dose ofinfluenza vaccination? NoHistory of Guillain-Sumner Syndrome within 6 weeks after a previousinfluenza vaccine? NoCurrent moderate or severe illness? NoCurrent temperature greater or equal to 100.4F? NoHistory of Bone Marrow Transplant in past 6 months or solid organtransplant in the past 3 months ? No [] VERIFICATIONcolor enhanced sectionWas the answer Yes for any of the above contraindications? Nocontraindications present. Acceptable to proceed with vaccine.Patient/guardian agrees the above answers are true to the best of theirknowledge? YesFlu vaccine information sheet given? YesSee immunization activity in [facility] for details of immunizationsadminstered today.Patient age: [age] year old For The Flu Season 6-35 months old: Fluzone 0.25 ml - IM (Preservative Free)3 years of age: Fluzone 0.5 ml - IM (Preservative Free)3 years and older: Fluzone 0.5 ml- IM-(with Preservatives)65+ years old: Fluzone High-Dose 0.5 ml - IM (Preservative Free)REMEMBER: If patient is less than 9 years of age and this is the firstvaccine of Influenza to be received in any flu season, they should receivea second dose in one months time. cnov on 2016-12-26 CNOV Office Visit Normal 12-26-2016 [place] and (FAMPWS) --------CHELLE DUVALL Clin ic ([id number]) 1975 FDate Time Provider Vnwbjjwiyu41/5/17 3:00 PM MARK BEDOLLA IIIPWS During [place] and your visit today, we recorde d the following information about you: Temperature Pulse Respiration Blood (000 00) pressure 97.8 degrees 76/min [place] 14/minute 118/88 Weight 80.7 kgRoxannashlee Arroyo Ma 12/26/2016 6:33 PM Aguxtc49 year old female her e for INACTIVATED INFLUENZA VACCINE.3512-1104 SeasonPatient is identified by name and date of : Yes [] CONTRAINDICATIONS color enha ncedsectionAge less than 6 months? NoAllergy to eggs, chicken, chicken feathers, or chicken dander? NoAllergy to thimerosal (a preservative) or formaldehyde? NoHistory of severe reaction to any vacci ne component or a previous dose ofinfluenza vaccination? NoHistory of Guillain-Sumner Syndrome with in 6 weeks after a previous influenzavaccine? NoCurrent moderate or severe illness? NoCurrent temperatu re greater or equal to 100.4F? NoHistory of Bone Marrow Transplant in past 6 months or solid organ transplant inthe past 3 months ? No [] VERIFICATION colorenhanced sectionWas the answer ANDquo t;YesANDquot; for any of the above contraindications? Nocontraindications present. Acceptable to proce ed with vaccine.Patient/guardian agrees the above answers are true to the best of theirknowledge? YesF viviana vaccine information sheet given? YesSee immunization activity in [facility] for details of immunizations adminsteredtoday.Patient age: [age] year old For The 8154-2998 Flu Season 6-35 months old: Fluzone 0.25 ml - IM (Preservative Free)3 years of age: Fluzone 0.5 ml - IM (Preservative Free)3 years and older: Fluz one 0.5 ml- IM-(with Preservatives)65+ years old: Fluzone High-Dose 0.5 ml - IM (Preservative Free)REMEMB ER: If patient is less than 9 years of age and this is the first vaccineof Influenza to be received in any flu season, they should receive a seconddose in one months time.Mark Bedolla III MD 12/26/2016 6:33 PM SignedSUBJECTIVE: This is a 41 year old female that is here today for ER Follow Up.[facility] ER for eval. of severe cough and chest pain. Dx of chest wallpain. Tx with naproxyn. Now she states she has cough productive of greenphlegm. No fever.Still smoking but down to 5 cigarettes/day. . Off chanti x since it causedhallucinations. No fever.2. Twisted R knee yesterday while on steps. Pain maximally lat aspect of r kneePAST MEDICAL HISTORYDiagnosis Date- Asthma- C. difficile colitis- Cervical high risk human papillomavirus (HPV) DNA test positive 2010- Cervical radiculopathy 04/09/2011- Hyperlipidemia- M ild intermittent asthma without complication 03/09/2015- Seizures (HCC)Current Outpatient Pres criptions on File Prior to Visit:levETIRAcetam ER (KEPPRA XR) 750 mg 24 hr tablet Take 1 tablet by mout h twicedaily.topiramate (TOPAMAX) 200 mg tablet Take 1 tablet by mouth twice daily.albuterol (PROVENTIL) 5 mg/mL nebu Inhale 0.5 mL as instructed every 4 hours asneeded.fluticasone-vilante rol (BREO ELLIPTA) 200-25 mcg/dose inhaler Inhale 1Inhalation as instructed once daily. Inhale one puff once daily. DO NOT CLICKOPEN UNTIL READY FOR DOSEomeprazole (PRILOSEC) 20 mg capsule Take 1 capsule by [facility] daily beforebreakfast. 1/2 hr before meal.albuterol HFA (VENTOLIN HFA) 90 mcg/actuation inhaler Inh teresa 2 Puffs asinstructed every 4 hours as needed for Wheezing/Shortness of Breath.COMPOUNDED PRESCRIPTI ON Home nebulizer machine with accessories Dx: Acutebronchitis J20.9, mild intermittent asthma J45.20SU MAtriptan (IMITREX) 25 mg tablet Take 25 mg by mouth as needed.atorvastatin (LIPITOR) 40 mg tablet Take 1 tablet by mouth once daily.multivitamin tablet Take 1 tablet by mouth once daily.codeine-guaiFENesin (G UAIFENESIN AC) 10-100 mg/5 mL syrup Take 10 mL by mouthfour times daily as needed.varenicline (CHANTIX) 0.5 mg (11)- 1 mg (42) tablet Take 0.5 mg daily x3days,then twice daily for 4 days, then 1mg twice daily for duration.varenicline (CHANTIX CONTINUING MONTH JAIRO) 1 mg tablet Take 1 tablet by mouthtwice daily.p romethazine (PHENERGAN) 25 mg tablet Take 25 mg by mouth every 6 hours asneeded.No current facility -administered medications on file prior to visit.FAMILY HISTORYProblem Relation Age of Onset- Adopt ed: YesSocial HistorySubstance Use Topics- Smoking status: Current Every Day Smoker Packs/day: 0.50 Years : 15.00 Types: Cigarettes- Smokeless tobacco: Never Used Comment: 5 cig day- Alcohol use NoBP 118/88 (BP Site: Left Arm, BP Position: Sitting, BP Cuff Size: RegularAdult) Pulse 76 Temp 36.6 ?C (97.8 ?F) (Ty mpanic) Resp 14 Wt 80.7 kg(178 lb) LMP 10/23/2012 BMI 30.55 kg/m2.OBJECTIVE:APPEARANCE W ell appearing, alert, in no acute distress, well- hydrated, wellnourished., occasional coughNECK Negativ e findings: no asymmetry, masses, or scars, no adenopathy, tracheamidline and normal to palpitationHEA RT RRR with normal S1 and S2, no murmurs, no gallops, no JVD appreciatedLUNG rhonchi diffuselyEXTREMITIES mild swelling R knee with tenderness lateral joint line. Pain withresisted valgus distractionASSESSMENT :L ant chest muscle strainacute bronchitisstrain R knee, acutetobacco use disorderPLAN:biofreeze as ne eded for chest muscle strainnaprosyn 500mg twice/day as needed for painrobitussin AC 1-2 tsp ev miriam 4 hrs as needed for coughzpack as directedtry to reduce smokingflu shot givenFrank A Cebul, III MDFr ank A Cebul, III MDFrank A Cebul, III 12/26/2016 3:18 PM SignedPLAN:biofreeze as need ed for chest muscle strainnaprosyn 500mg twice/day as needed for painrobitussin AC 1-2 tsp ev miriam 4 hrs as needed for coughzpack as directedtry to reduce smokingFrank A Cebul, III MDReferring Provi stanley: SELF [200]Allergies As of Date: 12/26/2016 Noted Allergy ReactionLATEX 11/02/2013 14 - Other: See C ommentsTAPE (ADHESIVE TAPE (ROSINS)) 11/02/2013 14 - Other: See CommentsVICODIN (HYDROCODONE -ACETAMINOPHE*02/02/2010 2 - RashZOCOR (SIMVASTATIN) 03/28/2015 17 - MyalgiaZOFRAN (ONDANSETRON H CL (PF)) 07/24/2011 14 - Other: See Comments Comments: HeadachesDate Reviewed: 12/26/2016Reviewed by: Kim Arroyo Ma - Fully AssessedReason for Visit: ED Follow-up [821] Right Knee Pain [1209] Imm/I nj [58] Cmt: Flu VaccineReason For Visit History RecordedPrimary Visit Diagnosis:Need for vaccinati on [Z23] Other Visit Diagnoses:Tobacco use disorder [F17.200] Knee strain, right, initial encounter [S8 6.911A] Muscle strain of chest wall, subsequent encounter [S29.011D] Acute bronchitis, unspecified orga nism [J20.9]Order(s):INFLUENZA VACCINE QUADRIVALENT AGE 3 YRS PLUS + IM [18135YDC] Order #: [id number] 20 azithromycin (ZITHROMAX Z-JAIRO) 250 mg tabletTake 2 tablets day one, then, 1 tablet daily until gone.Di sp: 1 PackageRfl: 0 naproxen (NAPROSYN) 500 mg tabletTake 1 tablet by mouth twice daily as needed. Take with food.Disp: 60 tabletRfl: 2 codeine-guaiFENesin (GUAIFENESIN AC) 10-100 mg/5 mL syrupTake 10 mL by m outh four times daily as needed.Disp: 240 mLRfl: 0Prescriptions as of 12/26/2016 Sig: LEVETIRACETA M ER 750 MG TABLE* Take 1 tablet by mouth twice * TOPIRAMATE 200 MG TABLET Take 1 tablet by mouth twice * ALBUTEROL SULFATE CONCENTRATE* Inhale 0.5 mL as instructed e* FLUTICASONE 200 MCG-VILANTERO* Inhale 1 Inhalation as instru* OMEPRAZOLE 20 MG CAPSULE,BENIGNO* Take 1 capsule by mouth daily* ALBUTEROL SULFATE HFA 90 MCG/* Inhale 2 Puffs as instructed * COMPOUNDED PRESCRIPTION Home nebulizer machine with a* LLAMAS MATRIPTAN 25 MG TABLET Take 25 mg by mouth as needed. ATORVASTATIN 40 MG TABLET Take 1 tablet by mout h once d* MULTIVITAMIN TABLET Take 1 tablet by mouth once d* AZITHROMYCIN 250 MG TABLET Take 2 tablets day one, then,* NAPROXEN 500 MG TABLET Take 1 tablet by mouth twice * CODEINE 10 MG-GUAIFENESIN 10 0* Take 10 mL by mouth four time* VARENICLINE 0.5 MG (11)-1 MG * Take 0.5 mg daily x3days, the* VARENICLI NE 1 MG TABLET Take 1 tablet by mouth twice * PROMETHAZINE 25 MG TABLET Take 25 mg by mouth every 6 h*Pro blem List As Of Date 12/26/2016 Noted Resolved Abdominal pain, right lower quadrant [R10.31] INVALID FO R*05/18/2015 Other and unspecified ovarian cyst [N83.209] INVALID FOR*05/18/2015 Cervical radi culopathy [M54.12] INVALID FOR*05/18/2015 Cervicalgia [M54.2] INVALID FOR* Seizure disorder [G40.909] I NVALID FOR* Irritable bowel syndrome with diarrhea [K58.0] INVALID FOR* Mild intermittent asthma without complication [*INVALID FOR* Tobacco use disorder [F17.200] INVALID FOR* Chondral loose body of right knee joint [M23.41]INVALID FOR* Chronic pain of right knee [M25.561, G89.29] INVALID FOR* Reactiv e depression [F32.9] INVALID FOR* Obesity, Class I, BMI 30-34.9 [E66.9] INVALID FOR* Other instructi ons from your clinician: PLAN: biofreeze as needed for chest muscle strain naprosyn 500mg twice/day as needed for pain robitussin AC 1-2 tsp every 4 hrs as needed for cough zpack as directed try to reduce sm oking Mark Bedolla III MDPrescriptions ordered this encounter Disp Refills Start End AZITHROMYCIN 250 M G TABLET 1 Pa* 0 12/26/2016 12/31/2016 Sig: Take 2 tablets day one, then, 1 tablet daily until gone. NAP ROXEN 500 MG TABLET 60 t* 2 12/26/2016 Route: ORAL Sig: Take 1 tablet by mouth twice daily as needed. Take with food. CODEINE 10 MG-GUAIFENESIN 100 MG/5 M* 240 * 0 12/26/2016 Class: Print RX Route: ORAL Sig: Take 10 mL by mouth four times daily as needed.Medications Discontinued During This Encounter codein e-guaiFENesin (GUAIFENESIN AC)* 240 * 0 11/18/2016 12/26/2016 Class: Print RX Route: ORAL Sig: Take 10 mL by mouth four times daily as needed. Disc: Duplicate EntryEncounter Number: [id number] Status:Closed by MARK BEDOLLA III, MD on 12/26/16 progress on 2016-10 PROGRESS HNO ID: [id number]: Mark Spencer 11-18-2016 [facility] Evan ASHBYService: (none)Author Type: [place] PhysicianType: Progress NotesFiled: ([id number]) 11/18/2016 7:14 PMNote Text:SUBJECTIVE: This is a 41 year old female that is here today for1. ER Follow Up. Bren Guevara 11/09. (treated with nasal spray,albuterol inhaler, tessalon. Had a cough for 1 wk prior. Stillcoughing, disturbing sleep.2. tobacco use--1/2 ppd. Started smoking at age 11. Patches did notwork. Relaxes by exercise, reading, puzzles. Triggers for smoking:awakening in AM, stress/aggravation, boredom, coffee, after meals,driving,PAST MEDICAL HISTORYDiagnosis Date- Asthma- C. difficile colitis- Cervical high risk human papillomavirus (HPV) DNA test positive 2010- Cervical radiculopathy 04/09/2011- Hyperlipidemia- Mild intermittent asthma without complication 03/09/2015- Seizures (HCC)Current Outpatient Prescriptions on File Prior to Visit:omeprazole (PRILOSEC) 20 mg capsule Take 1 capsule by mouth daily beforebreakfast. 1/2 hr before meal.promethazine (PHENERGAN) 25 mg tablet Take 25 mg by mouth every 6 hours asneeded.fluticasone-vilanterol (BREO ELLIPTA) 200-25 mcg/dose inhaler Inhale 1Inhalation as instructed once daily. Inhale one puff once daily. DO NOTCLICK OPEN UNTIL READY FOR DOSEalbuterol HFA (VENTOLIN HFA) 90 mcg/actuation inhaler Inhale 2 Puffs asinstructed every 4 hours as needed for Wheezing/Shortness of Breath.COMPOUNDED PRESCRIPTION Home nebulizer machine with accessories Dx: Acutebronchitis J20.9, mild intermittent asthma J45.20albuterol (PROVENTIL) 5 mg/mL nebu Inhale 0.5 mL as instructed every 4hours as needed.SUMAtriptan (IMITREX) 25 mg tablet Take 25 mg by mouth as needed.atorvastatin (LIPITOR) 40 mg tablet Take 1 tablet by mouth once daily.levETIRAcetam ER (KEPPRA XR) 750 mg 24 hr tablet Take 1 tablet by mouthtwice daily.topiramate (TOPAMAX) 200 mg tablet Take 1 tablet by mouth twice daily.multivitamin tablet Take 1 tablet by mouth once daily.No current facility-administered medications on file prior to visit.FAMILY HISTORYProblem Relation Age of Onset- Adopted: YesSocial HistorySubstance Use Topics- Smoking status: Current Every Day Smoker Packs/day: 0.50 Years: 15.00 Types: Cigarettes- Smokeless tobacco: Never Used- Alcohol use NoBP 116/70 Pulse 72 Resp 14 Wt 83.9 kg (185 lb) LMP 10/23/2012 BMI 31.76 kg/m2 .OBJECTIVE:APPEARANCE Well appearing, alert, in no acute distress, well-hydrated,well nourished., ObeseEYES conjunctivae and sclerae normal and lids and lashes normalEARS External ears normal, canals clearNOSE/SINUS Nares normal. Septum midline. Mucosa normal. No drainage orsinus tenderness.THROAT normal, no erythemaNECK Negative findings: no asymmetry, masses, or scars, no adenopathy,trachea midline and normal to palpitation, thyroid normal to palpationLUNG clear to auscultationASSESSMENT:acute exacerbation of COPDtobacco use disorderobesityPLAN:healthy weight losing diet and regular exerciseeat less sugar, bread, potato, pasta, rice, corn, corn syrup, saturatedfatschantix as directedstart Breo and use albuterol inhaler as neededdevelop a plan to avoid smoking during tempting situations--30 min visit--10 min discussing plan for tobacco cessationMark Bedolla III MD cnov on 2016-11-18 [facility] Office Visit Normal 11-18-2016 [facility] ([facility]) --------[facility]HELLE [facility]UVALL Clin ic ([id number]) 1975 FDa Time Provider Department11/18/16 3:00 PM MARK BEDOLLA III During [facility] and your visit today, we recorde d the following information about you: Pulse Respiration Blood pressure ( 19330) Weight 72/minute 14/minute 1 83.9 kgMark Bedolla III MD 11/18/2016 7:14 PM SignedSUBJECTIVE: This is a 41 year old female that is here today for1. ER Follow Up. Bren Guevara 11/09. (treated with ANDquot;nasal spray,albutero l inhaler, tessalonANDquot;. Had a cough for 1 wk prior. Stillcoughing, disturbing sleep.2. tobacco use--1/2 ppd. Started smoking at age 11. Patches did not work.Relaxes by exercise, reading, puzzles. Triggers for smoking: awakening Nneka, stress/aggravation, boredom, coffee, after meals, driving,PAST ME DICAL HISTORYDiagnosis Date- Asthma- C. difficile colitis- Cervical high risk human papillomavirus (H PV) DNA test positive 2010- Cervical radiculopathy 04/09/2011- Hyperlipidemia- Mild intermi ttent asthma without complication 03/09/2015- Seizures (HCC)Current Outpatient Prescriptions on File Prior to Visit:omeprazole (PRILOSEC) 20 mg capsule Take 1 capsule by mouth daily beforebreakfast. 1/2 hr before meal.promethazine (PHENERGAN) 25 mg tablet Take 25 mg by mouth every 6 hours asneeded .fluticasone-vilanterol (BREO ELLIPTA) 200-25 mcg/dose inhaler Inhale 1Inhalation as instructed on ce daily. Inhale one puff once daily. DO NOT CLICKOPEN UNTIL READY FOR DOSEalbuterol HFA (VENTOLIN HFA) 90 mcg/actuation inhaler Inhale 2 Puffs asinstructed every 4 hours as needed for Wheezing/Shortnes s of Breath.COMPOUNDED PRESCRIPTION Home nebulizer machine with accessories Dx: Acutebronchitis J20.9, m ild intermittent asthma J45.20albuterol (PROVENTIL) 5 mg/mL nebu Inhale 0.5 mL as instructed every 4 ria rs asneeded.SUMAtriptan (IMITREX) 25 mg tablet Take 25 mg by mouth as needed.atorvastatin (LIPITOR ) 40 mg tablet Take 1 tablet by mouth once daily.levETIRAcetam ER (KEPPRA XR) 750 mg 24 hr tablet Take 1 tablet by mouth twicedaily.topiramate (TOPAMAX) 200 mg tablet Take 1 tablet by mouth twice daily. multivitamin tablet Take 1 tablet by mouth once daily.No current facility-administered medica tions on file prior to visit.FAMILY HISTORYProblem Relation Age of Onset- Adopted: YesSocial HistorySu bstance Use Topics- Smoking status: Current Every Day Smoker Packs/day: 0.50 Years: 15.00 Types: Cigarett es- Smokeless tobacco: Never Used- Alcohol use NoBP 116/70 Pulse 72 Resp 14 Wt 83.9 kg (185 lb) L MP 10/23/2012 BMI31.76 kg/m2 .OBJECTIVE:APPEARANCE Well appearing, alert, in no acute distress, well-h ydrated, wellnourished., ObeseEYES conjunctivae and sclerae normal and lids and lashes normalEARS Photographic Technician al ears normal, canals clearNOSE/SINUS Nares normal. Septum midline. Mucosa normal. No drainage or sinus tenderness.THROAT normal, no erythemaNECK Negative findings: no asymmetry, masses, or scars, no adenopa thy, tracheamidline and normal to palpitation, thyroid normal to palpationLUNG clear to auscu ltationASSESSMENT:acute exacerbation of COPDtobacco use disorderobesityPLAN:healthy weight losing diet and regular exerciseeat less sugar, bread, potato, pasta, rice, corn, corn syrup, satu rated fatschantix as directedstart Breo and use albuterol inhaler as neededdevelop a plan to avoi d smoking during tempting situations--30 min visit--10 min discussing plan for tobacco cessationSYMONE Hernandez III MD 11/18/2016 3:38 PM SignedPLAN:healthy weight losing diet and regul ar exerciseeat less sugar, bread, potato, pasta, rice, corn, corn syrup, saturated fatschantix as dir ectedstart Breo and use albuterol inhaler as neededdevelop a plan to avoid smoking during tempting situ ations--Mark Bedolla III MDReferring Provider: SELF [[id number]]Allergies As of Date: 11/18/2016 Noted Aller gy ReactionLATEX 11/02/2013 14 - Other: See CommentsTAPE (ADHESIVE TAPE (ROSINS)) 11/02/2013 14 - Ot her: See CommentsVICODIN (HYDROCODONE- ACETAMINOPHE*02/02/2010 2 - RashZOCOR (SIMVASTATIN) 03/28/2015 17 - MyalgiaZOFRAN (ONDANSETRON HCL (PF)) 07/24/2011 14 - Other: See Comments Comments: HeadachesDate Revi ewed: 11/18/2016Reviewed by: Bindu Donahue [facility] - Fully AssessedReason for Visit: ED Follow-up [821]Renita phillips Visit Diagnosis:Mild intermittent asthma without complication [J45.20] Other Visit Diagnoses:Tobacc o use disorder [F17.200] Obesity, Class I, BMI 30-34.9 [E66.9]Order(s):levETIRAceta m ER (KEPPRA XR) 750 mg 24 hr tabletTake 1 tablet by mouth twice daily.Disp: 60 tabletRfl: 5 topiramate ( TOPAMAX) 200 mg tabletTake 1 tablet by mouth twice daily.Disp: 60 tabletRfl: 5 albuterol (PROVENTIL) 5 mg /mL nebuInhale 0.5 mL as instructed every 4 hours as needed.Disp: 1 PackageRfl: 3 fluticasone-vi lanterol (BREO ELLIPTA) 200-25 mcg/dose inhalerInhale 1 Inhalation as instructed once daily. Inhal e one puff once daily. DO NOT CLICK OPEN UNTIL READY FOR DOSEDisp: 30 EachRfl: 11 predniSONE (DELT ASONE) 10 mg tabletTake 4 tabs daily x 3 days, then 3 tabs x 3 days, 2 tabs x 3 days, then 1 tab x3 days with food.Disp: 30 tabletRfl: 0 codeine- guaiFENesin (GUAIFENESIN AC) 10-100 mg/5 mL syrupTake 10 mL by m outh four times daily as needed.Disp: 240 mLRfl: 0 varenicline (CHANTIX) 0.5 mg (11)- 1 mg (42) tabletTak e 0.5 mg daily x3days, then twice daily for 4 days, then 1mg twice daily for duration.Disp: 1 PackageRfl: 0 varenicline (CHANTIX CONTINUING MONTH JAIRO) 1 mg tabletTake 1 tablet by mouth twice daily.Disp: 1 Gus ckageRfl: 2Prescriptions as of 11/18/2016 Sig: LEVETIRACETAM ER 750 MG TABLE* Take 1 tablet by mout h twice * TOPIRAMATE 200 MG TABLET Take 1 tablet by mouth twice * ALBUTEROL SULFATE CONCENTRATE* Inhale 0.5 mL as instructed e* FLUTICASONE 200 MCG- VILANTERO* Inhale 1 Inhalation as instru* OMEPRAZOLE 20 MG CAPSULE,BENIGNO* Take 1 capsule by mouth daily* PROMETHAZINE 25 MG TABLET Take 25 mg by mouth every 6 h* AL BUTEROL SULFATE HFA 90 MCG/* Inhale 2 Puffs as instructed * COMPOUNDED PRESCRIPTION Home nebulizer machine with a* SUMATRIPTAN 25 MG TABLET Take 25 mg by mouth as needed. ATORVASTATIN 40 MG TABLET Ta ke 1 tablet by mouth once d* MULTIVITAMIN TABLET Take 1 tablet by mouth once d* PREDNISONE 10 MG TABLET T ilan 4 tabs daily x 3 days, t* CODEINE 10 MG- GUAIFENESIN 100* Take 10 mL by mouth four time* VARENICLINE 0.5 MG (11)-1 MG * Take 0.5 mg daily x3days, the* VARENICLINE 1 MG TABLET Take 1 tablet by mouth twice *Problem List As Of Date 11/18/2016 Noted Resolved Abdominal pain, right lower quadrant [R10.31] INVA LID FOR*05/18/2015 Other and unspecified ovarian cyst [N83.209] INVALID FOR*05/18/2015 Cervical radi culopathy [M54.12] INVALID FOR*05/18/2015 Cervicalgia [M54.2] INVALID FOR* Seizure disorder [G40.909] I NVALID FOR* Irritable bowel syndrome with diarrhea [K58.0] INVALID FOR* Mild intermittent asthma without complication [*INVALID FOR* Tobacco use disorder [F17.200] INVALID FOR* Chondral loose body of right knee joint [M23.41]INVALID FOR* Chronic pain of right knee [M25.561, G89.29] INVALID FOR* Reactiv e depression [F32.9] INVALID FOR* Obesity, Class I, BMI 30-34.9 [E66.9] INVALID FOR* Other instructi ons from your clinician: PLAN: healthy weight losing diet and regular exercise eat less sugar, tello ad, potato, pasta, rice, corn, corn syrup, saturated fats chantix as directed start Breo and use albuterol inhaler as needed develop a plan to avoid smoking during tempting situations-- Mark Bedolla, III MDPrescriptions ordered this encounter Disp Refills Start End LEVETIRACETAM ER 750 MG TABL ET,EXTEN* 60 t* 11/18/2016 Route: ORAL Sig: Take 1 tablet by mouth twice daily. TOPIRAMATE 200 MG TAB LET 60 t* 5 11/18/2016 Route: ORAL Sig: Take 1 tablet by mouth twice daily. ALBUTEROL SULFATE CONCENTRAT E 5 MG/M* 1 Pa* 3 11/18/2016 Route: INHALATION Sig: Inhale 0.5 mL as instructed every 4 hours as needed. FLUTICASONE 200 MCG-VILANTEROL 25 MC* 30 E* 11 11/18/2016 Route: INHALATION Sig: Inhale 1 Inh alation as instructed once daily. Inhale one puff once daily. DO NOT CLICK OPEN UNTIL READY FOR DOSE CA EDNISONE 10 MG TABLET 30 t* 0 11/18/2016 11/30/2016 Sig: Take 4 tabs daily x 3 days, then 3 tabs x 3 days , 2 tabs x 3 days, then 1 tab x3 days with food. CODEINE 10 MG-GUAIFENESIN 100 MG/5 M* 240 * 0 11/19/19 17 Class: Print RX Route: ORAL Sig: Take 10 mL by mouth four times daily as needed. VARENICLINE 0.5 MG ( 11)-1 MG (42) TA* 1 Pa* 0 11/18/2016 Sig: Take 0.5 mg daily x3days, then twice daily for 4 days, then 1mg twice daily for duration. VARENICLINE 1 MG TABLET 1 Pa* 2 11/18/2016 Route: ORAL Sig: Take 1 tabl et by mouth twice daily.Medications Discontinued During This Encounter levETIRAcetam ER (KEPPRA XR) 750 mg * 60 t* 5 10/31/2015 11/18/2016 Route: ORAL Sig: Take 1 tablet by mouth twice daily. Disc: Reason fo r discontinue is not on file. topiramate (TOPAMAX) 200 mg tablet 60 t* 2 01/24/2015 11/18/2016 Route: O RAL Sig: Take 1 tablet by mouth twice daily. Disc: Reason for discontinue is not on file. albuterol (PROV ENTIL) 5 mg/mL nebu 1 Pa* 2 01/02/2016 11/18/2016 Route: INHALATION Sig: Inhale 0.5 mL as instructed every 4 hours as needed. Disc: Reason for discontinue is not on file. fluticasone-vilanterol (BREO ELLIPTA* 30 E* 11 05/21/2016 11/18/2016 Route: INHALATION Sig: Inhale 1 Inhalation as instructed onc e daily. Inhale one puff once daily. DO NOT CLICK OPEN UNTIL READY FOR DOSE Disc: Reason for discontinue is not on file. Status:Closed by MARK BEDOLLA III, MD on 11/18/16 stool culture on 07-10-12 Stool Culture Sp. Request/Comment: - Normal [facility] Specimen received in a [place] ([id number]) Culture and Susceptibility Kit.Campylobacter EIA - Negative for Campylobacter species by EIA.Shiga Toxin - Negative for Shiga toxin 1 and 2 by EIACulture Result - Negative for Escherichia coli O157:H7 Negative for Salmonella and Shigella sp. Comment: Performed By: #### STCUL ### #[place] [address] [address] [place] [id number]- [phone] ova and parasite ex on 2016-10-03 Ova and Parasite Sp. Request/Comment: - Speci men received in Ova and Parasite Kit. Normal 10-03-2016 [facility] [place] ([id number]) Culture Result - No parasites seen. Comment: Performed By: #### OVAP #### [place] [phone]- [phone] urine culture on 08-10-11 Urine culture, Sp. Request/Comment: - Specimen received in preserva tive Normal 10-02-2016 [facility] bacteria [place] ([id number]) Culture Result - <10,000 CFU/ml Normal urogenital taz Comment: Performed By: #### URCUL ### #[place] [phone]- [phone] c difficile pcr on 2016-10-02 C difficile PCR Negative for C. Normal 10-03-19 [facility] difficile toxin by PCR [place] ([id number]) Comment: Performed By: #### CDPCR ### #[place] [phone]- [phone] urinalysis with microscopic on 2016-09-30 Bilirubin, Urine Negative Negative Normal 09-30-2016 [facility] ([id number]) Comment: Performed By: #### UAWMIC ## ##[facility] [place], [place] [id number]- [phone] Comments SEE COMMENT Normal 09-30-2016 [facility] ([id number]) Comment: Result Comment: N/A Performed By: #### UAWMIC ## ##[place] [address] [place] [phone] Erythrocytes (RBC) 0-3 0-3 Normal 09-30-2016 [facility] ([id number]) Comment: Performed By: #### UAWMIC ## ##[place] [address] [place] [id number]- [phone] Hemoglobin mass conc 1+ Negative Critically abnormal 09-30-2016 [facility] (d) [place] ([id number]) Comment: Performed By: #### UAWMIC ## ##[place] [address] [address] [place] [id number]- [phone] Leukest Negative Negative Normal 09-30-2016 [facility] ([id number]) Comment: Performed By: #### UAWMIC ## ##[place] [address] [address] [place] [phone] pH of blood 6.0 4.5-8.0 [pH] Normal 09-30-2016 [facility] ([id number]) Comment: Performed By: #### UAWMIC ## ##[place] [address] [place] [phone]- [phone] Protein, Urine Negative Negative Normal 09-30-2016 [facility] ([id number]) Comment: Performed By: #### UAWMIC ## ##[place] [address] [place] [id number]- [phone] Specific [place], Ur 1.017 1.005-1.030 Normal 017 [facility] ([id number]) Comment: Performed By: #### UAWMIC ## ##[facility] [place] [id number]- [phone] Urine Kelvin Comment SEE COMMENT Normal 09-30-2016 [facility] ([id number]) Comment: Result Comment: N/A Performed By: #### UAWMIC ## ##[facility], [place] [phone]- [phone] Urine, clarity Cloudy Clear Critically abnormal 09-30 [facility] ([id number]) Comment: Performed By: #### UAWMIC ## ##[facility], [place] [phone]- [phone] Urine, color Yellow Yellow Normal 09-30-2016 [facility] ([id number]) Comment: Performed By: #### UAWMIC ## ##[facility], [place] [phone]- [phone] Urine, epithelial cells in SEE COMMENT Normal 0 09-30-2016 [facility] ([id number]) Comment: Result Comment: FewSquamous Epithelial Cells Performed By: #### UAWMIC ## ##[facility], [place] [phone]- [phone] Urine, glucose presence Negative Negative Normal 2016 [facility] ([id number]) Comment: Performed By: #### UAWMIC ## ##[facility], [place] [phone]- [phone] Urine, ketones presence Negative Negative Normal 2016 [facility] ([id number]) Comment: Performed By: #### UAWMIC ## ##[facility] [address], [place] [phone]- [phone] Urine, nitrite presence Negative Negative Normal 2016 [facility] ([id number]) Comment: Performed By: #### UAWMIC ## ##[facility] [address], [place] [phone]- [phone] Urine, urobilinogen Normal Normal Normal 09-30-2016 [facility] ([id number]) Comment: Performed By: #### UAWMIC ## ##[facility] [place], [place] [phone]- [phone] WBC (Leukocytes) 6-10 0-5 Critically abnormal [facility] ([id number]) Comment: Performed By: #### UAWMIC ## ##[facility] [place], [place] [id number]- [phone] progress on 2016-09 PROGRESS HNO ID: [id number]: Wellington Alcaraz Normal 09-30-2016 [facility] (Horticulture Superintendent) SamSerakashe: (none)Author Type: [place] ([id number]) Nurse PractitionerType: Progress NotesFiled: 09/30/2016 4:24 PMNote Text:Chief ComplaintPatient presents with:ED Follow-up: abdominal pain and diarrheaColleen Duvall is a 41 year old female who presents here today for ED f/uabdominal pain and diarrhea.Seen in [facility] ER 09/24/16 for RUQ abdominal pain and diarrhea. Labsand RUQ US done and showed no acute findings. WBC=5.90, Hgb=13.1,Lymphocyte=45.6%, Ygastd=357, Alk Joev=937, AST=11, ALT=20,Urinalysis=small leuk est.RUQ US= Liver is normal in size, contour and echo-texture. Ho hepaticmass or biliary ductal dilatation is identified. The GB is adequatelydistended and demonstrates no wall thickening or shadowing stones. Theright kidnye is normal in size and echotexture, baldder is unremarkable. Patient presents to office today noting worsening sx with pain going intoMy back. Diarrhea persists, noting 5-6 stools/day, anytime I eat it goesstraight through me or I vomit. Admits to hot and cold spells, with tempof 99 degrees this morning. Last emesis last tawanda. Keeping Sprite down.Describes pain as constant, rating pain 8 out of 10. Eating makes itworse. Onset of sx one week ago. Given Pepcid and Phenergan rx from ERvisit. Patient continues to take.Upon chart review she has had frequent ER and OV with abdominal pain.Surgical h/o hysterectomy,Last 3 Encounter Wt Readings: Date: Wt: 09/30/2016 83.5 kg (184 lb) 06/20/2016 88.8 kg (195 lb 12.8 oz) 01/04/2016 79.4 kg (175 lb)Past medical history, appointments, medications, allergies reviewed.Previous Medical HistoryPAST MEDICAL HISTORYDiagnosis Date- Asthma- C. difficile colitis- Cervical high risk human papillomavirus (HPV) DNA test positive 2010- Cervical radiculopathy 04/09/2011- Hyperlipidemia- Mild intermittent asthma without complication 03/09/2015- Seizures (HCC)Previous Surgical HistoryPAST SURGICAL HISTORY12/03/13: COLONOSCOPY06/12/11: DANDC, DIAG AND/OR THERAPEUTIC Comment: Dilation AND curettage12/03/13: EG06/12/11: HYSTEROSCOPY, DIAGNOSTIC (SEPARATE Comment: Vfensskwvash61/04/13: LAP HYSTERECTOMY FOR UTERUS 250G OR LESS Comment: with left salipinoopherectomy AND RIGHT OVARYFamily HistoryFAMILY HISTORY Adopted: YesPatient AllergiesALLERGIESAllergen Reactions- Latex Other: See Comments- Tape [Adhesive Tape* Other: See Comments- Vicodin [Hydrocodon* Rash- Zocor [Simvastatin] Myalgia- Zofran [Ondansetron* Other: See Comments HeadachesCurrent MedicationsCurrent Outpatient Prescriptions on File Prior to Visit:fluticasone-vilanterol (BREO ELLIPTA) 200-25 mcg/dose inhaler Inhale 1Inhalation as instructed once daily. Inhale one puff once daily. DO NOTCLICK OPEN UNTIL READY FOR DOSEalbuterol HFA (VENTOLIN HFA) 90 mcg/actuation inhaler Inhale 2 Puffs asinstructed every 4 hours as needed for Wheezing/Shortness of Breath.COMPOUNDED PRESCRIPTION Home nebulizer machine with accessories Dx: Acutebronchitis J20.9, mild intermittent asthma J45.20albuterol (PROVENTIL) 5 mg/mL nebu Inhale 0.5 mL as instructed every 4hours as needed.SUMAtriptan (IMITREX) 25 mg tablet Take 25 mg by mouth as needed.atorvastatin (LIPITOR) 40 mg tablet Take 1 tablet by mouth once daily.levETIRAcetam ER (KEPPRA XR) 750 mg 24 hr tablet Take 1 tablet by mouthtwice daily.topiramate (TOPAMAX) 200 mg tablet Take 1 tablet by mouth twice daily.multivitamin tablet Take 1 tablet by mouth once daily.Aspirin 81 mg Tab Take 1 tablet by mouth once daily.pantoprazole DR (PROTONIX) 20 mg tablet Take 1 tablet by mouth dailybefore breakfast. Take on empty stomach, 1/2 hr before meal.No current facility-administered medications on file prior to visit.Social HistorySocial History Marital status: Spouse name: Years of education: Number of children:Social History Main Topics Smoking status: Current Every Day Smoker Packs/day: 0.50 Years: 15.00 Types: Cigarettes Smokeless status: Never Used Alcohol use: No Drug use: No Sexual activity: Yes Partners with: Male control/protection: NoneReview of SymptomsREVIEW OF SYSTEMSPAIN ASSESSMENT: CURRENTLY HAVING PAIN; see HPIGENERAL: Unintentional weight lossRESPIRATORY: Negative for cough, hemoptysis, wheezing, COPD, dyspnea orshortness of breathCARDIOVASCULAR: Negative for chest pain, leg swelling, hypertension, CHFor palpitationsGI: See HPIGU: No history of dysuria, frequency or incontinenceGYN: NA, h/o hysterectomyEXAM:BP 100/70 (BP Site: Right Arm, BP Position: Sitting, BP Cuff Size: LargeAdult) Pulse 72 Temp 36.2 ?C (97.2 ?F) (Tympanic) Resp 18 Wt 83.5kg (184 lb) LMP 10/23/2012 BMI 31.58 kg/m0Yohqbdn Appearance: Well appearing, alert, in no acute distress,well-hydrated, well nourished., moves to exam table with ease.Skin: Skin color, texture, turgor normal, no suspicious rashes or lesions.Ears: External ears normal, canals clear.Oropharynx: No Dentures and Lips, mucosa, and tongue normal, teeth andgums normal, oropharynx normal.Neck: Supple, no adenopathy; thyroid symmetric, normal size, no bruits.Lungs: Lungs clear to auscultation. No wheezing, rhonchi, rales.Heart: RRR without murmur, gallop, or rubs. No ectopy.Abdomen: Normal abdominal exam, soft, + bowel sounds. Negative CVAtenderness, Positive findings: obese, tenderness marked, voluntaryguarding without rigidity to RUQ. Once up on exam table she began holdingher abdomen, initially negative CVA tenderness then with exam she c/o painin right flank area.Neurologic: Gait normal. Sensation grossly intact., Negative findings:speech normal, mental status intact, cranial nerves 2-12 intact, OrientedX 3.Health Maintenance ListONE PNEUMOVAX PRIOR TO AGE 64 due on 1993MAMMOGRAM due on 2014PAP EVERY 5 YEARS due on 02/20/2016HPV EVERY 5 YEARS due on 02/20/2016INFLUENZA(1) due on 11/22/2016TETANUS due on 04/08/2021 ASSESSMENT/PLAN:1. RUQ abdominal pain - ICD9: 789.01, ICD10: R10.11 (primary diagnosis)? Etiology, will recheck labs and with h/o c dif colitis will check stoolstudies.- Continue treatment with Pepcid 20 mg QD- Labs of CBC with Diff, CMP, Ferritin, Lipase, Stool for C diff andStool studies- CBC + DIFF- LIPASE BLD- AMYLASE BLD- COMP METABOLIC PANEL- URINALYSIS WITH MICROSCOPIC- STOOL CULTURE/EIA2. Vomiting and diarrhea - ICD9: 787.03, 787.91, ICD10: R11.10, R19.7- Continue with Phenergan.- C. DIFFICILE PCR- CBC + DIFF- LIPASE BLD- AMYLASE BLD- COMP METABOLIC PANEL- STOOL CULTURE/EIA- OVA + PARA MICROSCOPICKelly Kathi Vargas, MSN MARKET EDITOR lipase on 2016-09-21 0 Lipase 15 16-61 U/L Low 09-30-2016 [facility] ([id number]) Comment: Performed By: #### CBCDIF, A MYL, CMP, LIPA ####[facility] [address] [place], [place] [phone] comp metabolic panel on 2016-09-30 Alanine aminotransferase (ALT) 10 7-38 U/L Normal 09-30-2016 [facility] ([id number]) Comment: Performed By: #### CBCDIF, A MYL, CMP, LIPA ####[facility] [address] [place], [place] [phone] Albumin 4.2 3.9-4.9 g/dL Normal 09-30-2016 [facility] (88229) Comment: Performed By: #### CBCDIF, A MYL, CMP, LIPA ####[facility] [address] [place] [phone] Alkaline phosphatase (ALP) 122 32-117 U/L High [facility] (88831) Comment: Performed By: #### CBCDIF, A MYL, CMP, LIPA ####[facility] [address] [place] [phone] Anion gap 15 9-18 mmol/L Normal 09-30-2016 [facility] (94023) Comment: Performed By: #### CBCDIF, A MYL, CMP, LIPA ####[phone] Aspartate aminotransferase 19 13-35 U/L Normal [facility] (AST) [place] ([id number]) Comment: Performed By: #### CBCDIF, A MYL, CMP, LIPA ####[facility] [address] [place] [phone] Bilirubin (total) 0.3 0.2-1.3 mg/dL Normal 09-30-2016 [facility] (07116) Comment: Performed By: #### CBCDIF, A MYL, CMP, LIPA ####[facility] [address] [place]Te[place] [phone] Calcium 10.0 8.5-10.2 mg/dL Normal 09-30-2016 [facility] (00314) Comment: Performed By: #### CBCDIF, A MYL, CMP, LIPA ####[facility] [address] [place] [phone] Chloride 102 97-105 mmol/L Normal 09-30-2016 [facility] (82749) Comment: Performed By: #### CBCDIF, A MYL, CMP, LIPA ####[facility] [address] [place], [place] [phone] CO2 22 22-30 mmol/L Normal 09-30-2016 [facility] (08146) Comment: Performed By: #### CBCDIF, A MYL, CMP, LIPA ####[facility] [address] [place], [place] [phone] Creatinine 0.79 0.58-0.96 mg/dL Normal 09-30-2016 [facility] (08965) Comment: Performed By: #### CBCDIF, A MYL, CMP, LIPA ####[place] [address] [place], [place] [phone] eGFR (non-black) >60 mL/min/{1.73_m2} Normal 2016 [facility] (29724) Comment: Performed By: #### CBCDIF, A MYL, CMP, LIPA ####[facility] [address] [place], [place] [phone] Result Comment: eGFR (Estima yovanny GFR) Units of measure: mL/min/1.73 meters squaredeGFR is derived from the reexpressed MDRD Study equation using the following parameters: serum creatinine, age, gender and race. The creatinine assay has been calibrated to be traceable to IDMS.An eGFR <60 mL/min/1.73m2 for >3 months is consistent with chronic kidney disease. Refer to KDOQI guidelines for clinical inte rpretation.In patients with unstable renal function, e.g. those with ac [place] kidney injury, the eGFR may not accurately reflect actual GFR. Glucose mass conc 81 74-99 mg/dL Normal 09-30-2016 [facility] (70731) Comment: Result Comment: The [place] Diabetes Association (ADA) provides guidance for cutoff values for fastin g glucose and random glucose. The ADA defines fasting as no caloric intake for at least 8 hours. Fasting plasma glucose results between 100 to 125 m g/dL indicate increased risk for diabetes (prediabetes).Fasting plasma glucose results greater than or equal to 126 mg/dL meet the criteria for diagnosis of diabetes. In the absence of unequivocal hyperglycemia, r esults should be confirmed by repeat testing. In a patient with classic sympt oms of hyperglycemia or hyperglycemic crisis, random plasma glucose result s greater than or equal to 200 mg/dL meet the criteria for diagnosis of di abetes.Reference: Standards of Medical Care in Diabetes 2016, [place] Diab etes Association. Diabetes Care. 2016.39(Suppl 1). Performed By: #### CBCDIF, A MYL, CMP, LIPA ####[facility] [place] [phone] Potassium molar conc 4.2 3.7-5.1 mmol/L Normal 7 [facility] (97333) Comment: Performed By: #### CBCDIF, A MYL, CMP, LIPA ####[place] [address] [place] [phone] Protein 6.7 6.3-8.0 g/dL Normal 09-30-2016 [facility] (36952) Comment: Performed By: #### CBCDIF, A MYL, CMP, LIPA ####[place] [address] [place] [phone] Sodium 139 136-144 mmol/L Normal 09-30-2016 [facility] (26409) Comment: Performed By: #### CBCDIF, A MYL, CMP, LIPA ####[facility] [place] [phone] Urea nitrogen 7 7-21 mg/dL Normal 09-30-2016 [facility] (26188) Comment: Performed By: #### CBCDIF, A MYL, CMP, LIPA ####[facility] [place] [phone] cnov on 2016-09-30 CNOV Office Visit Normal 09-30-2016 Gaudencio and (FAMPWS) --------CHELLE DUVALL Clin ic ([id number]) 1975 FDate Time Provider Department09/30/16 3:20 PM WELLINGTON VARGAS (POTATO PANCAKE FRIER) SANDEEP During C leveland your visit today, we recorde d the following information about you: Temperature Pulse Respiration Blood (000 00) pressure 97.2 degrees 72/min [place] 18/minute 100/70 Weight 83.5 kgWellington Kathi Vargas MSN MARKET EDITOR 09/30/2016 4:24 PM SignedChief ComplaintPatient presents with:ED Follow-up: abdominal pain and diarrheaColleen Duvall is a 41 year old female who presents here today for ED f/uabdominal pain and diarrhea.Seen in [facility] ER 09/24/16 for RUQ ab dominal pain and diarrhea. Labs andRUQ US done and showed no acute findings. WBC=5.90, Hgb=13.1, Lymphocy te=45.6%,Lipysw=981, Alk Heny=072, AST=11, ALT=20, Urinalysis=small leuk est.RUQ US= ANDquot;Liver is normal in size, contour and echo-texture. Ho hepaticmass or biliary ductal dilatation is identified. Th e GB is adequately distendedand demonstrates no wall thickening or shadowing stones. The right kidnye isn ormal in size and echotexture, baldder is unremarkableANDquot;. Patient presents to office today not ing worsening sx with pain going intoANDquot;My backANDquot;. Diarrhea persists, noting 5-6 stools/ day, anytime I eat itgoes straight through me or I vomitANDquot;. Admits to hot and cold spells, withtem p of 99 degrees this morning. Last emesis last tawanda. Keeping ANDquot;[place]edownANDquot;. Describes pain as constant, rating pain 8 out of 10. Eating makesit worse. Onset of sx one week ago. Gi florian Pepcid and Phenergan rx from ERvisit. Patient continues to take.Upon chart review she has had randall quent ER and OV with abdominal pain. Surgicalh/o hysterectomy,Last 3 Encounter Wt Readings: Date: Wt: 09/30/2016 83.5 kg (184 lb) 06/20/2016 88.8 kg (195 lb 12.8 oz) 01/04/2016 79.4 kg (175 lb)P ast medical history, appointments, medications, allergies reviewed.Previous Medical HistoryPAST MEDICAL HISTORYDiagnosis Date- Asthma- C. difficile colitis- Cervical high risk human papillomavirus (HPV) D NA test positive 2010- Cervical radiculopathy 04/09/2011- Hyperlipidemia- Mild intermittent asthma wit hout complication 03/09/2015- Seizures (HCC)Previous Surgical HistoryPAST SURGICAL HISTORY12/03/13: COL ONOSCOPY06/12/11: DANDamp;C, DIAG AND/OR THERAPEUTIC Comment: Dilation ANDamp; curettage12/03/13: EG 06/12/11: HYSTEROSCOPY, DIAGNOSTIC (SEPARATE Comment: Ewecdrdbwynt63/04/13: LAP HYSTERECTOMY FOR UTERUS 250G OR LESS Comment: with left salipinoopherectomy AND RIGHT OVARYFamily HistoryFAMILY HISTORY Adopte d: YesPatient AllergiesALLERGIESAllergen Reactions- Latex Other: See Comments- Tape [Adhesive Tap e* Other: See Comments- Vicodin [Hydrocodon* Rash- Zocor [Simvastatin] Myalgia- Zofran [Ondansetron * Other: See Comments HeadachesCurrent MedicationsCurrent Outpatient Prescriptions on File Prior to Visit:fluticasone-vilanterol (BREO ELLIPTA) 200- 25 mcg/dose inhaler Inhale 1Inhalation as instru cted once daily. Inhale one puff once daily. DO NOT CLICKOPEN UNTIL READY FOR DOSEalbuterol HFA (LINDA PARVEZ HFA) 90 mcg/actuation inhaler Inhale 2 Puffs asinstructed every 4 hours as needed for Wheezing/Short ness of Breath.COMPOUNDED PRESCRIPTION Home nebulizer machine with accessories Dx: Acutebronchi tis J20.9, mild intermittent asthma J45.20albuterol (PROVENTIL) 5 mg/mL nebu Inhale 0.5 mL as instructed every 4 hours asneeded.SUMAtriptan (IMITREX) 25 mg tablet Take 25 mg by mouth as needed.atorvastatin (LIPITOR) 40 mg tablet Take 1 tablet by mouth once daily.levETIRAcetam ER (KEPPRA XR) 750 mg 24 hr tab let Take 1 tablet by mouth twicedaily.topiramate (TOPAMAX) 200 mg tablet Take 1 tablet by mouth twice daily.multivitamin tablet Take 1 tablet by mouth once daily.Aspirin 81 mg Tab Take 1 tablet by mouth o nce daily.pantoprazole DR (PROTONIX) 20 mg tablet Take 1 tablet by mouth daily beforebreakfast. Take on empty stomach, 1/2 hr before meal.No current facility-administered medications on file prior to visit.Social HistorySocial History Marital status: Spouse name: Years of education: Number o f children:Social History Main Topics Smoking status: Current Every Day Smoker Packs/day: 0.50 Years : 15.00 Types: Cigarettes Smokeless status: Never Used Alcohol use: No Drug use: No Sexual activity: Yes Partners with: Male control/protection: NoneReview of SymptomsREVIEW OF SYSTEMSPAIN ASSESSMENT: C URRENTLY HAVING PAIN; see HPIGENERAL: Unintentional weight lossRESPIRATORY: Negative for cough, hemoptys is, wheezing, COPD, dyspnea orshortness of breathCARDIOVASCULAR: Negative for chest pain, leg swelling , hypertension, CHF orpalpitationsGI: See HPIGU: No history of dysuria, frequency or incontinenceGYN : NA, h/o hysterectomyEXAM:BP 100/70 (BP Site: Right Arm, BP Position: Sitting, BP Cuff Size: Large Adult) Pulse 72 Temp 36.2 ?C (97.2 ?F) (Tympanic) Resp 18 Wt 83.5 kg (184 lb) LMP 10/23/2012 B LA 31.58 kg/b5Jbitnft Appearance: Well appearing, alert, in no acute distress, well-hydrated,well nourished., moves to exam table with ease.Skin: Skin color, texture, turgor normal, no suspicious rashes or lesions.Ears: External ears normal, canals clear.Oropharynx: No Dentures and Lips, mucosa, and tongue normal, teeth and gumsnormal, oropharynx normal.Neck: Supple, no adenopathy; thyroid symmetri c, normal size, no bruits.Lungs: Lungs clear to auscultation. No wheezing, rhonchi, rales.Heart: RRR wi thout murmur, gallop, or rubs. No ectopy.Abdomen: Normal abdominal exam, soft, + bowel sounds. Negati ve CVA tenderness,Positive findings: obese, tenderness marked, voluntary guarding withoutrigidity to RUQ. Once up on exam table she began holding her abdomen, initiallynegative CVA tenderness then with exa m she c/o pain in right flank area.Neurologic: Gait normal. Sensation grossly intact., Negative fi ndings: speechnormal, mental status intact, cranial nerves 2-12 intact, Oriented X 3.[facility] ListONE PNEUMOVAX PRIOR TO AGE 64 due on 1993MAMMOGRAM due on 2014PAP EVERY 5 YEARS due on 02/20/2016HPV EVERY 5 YEARS due on 02/20/2016INFLUENZA(1) due on 11/22/2016TETANUS due on ASSESSMENT/PLAN:1. RUQ abdominal pain - ICD9: 789.01, ICD10: R10.11 (primary diagnosis)? Etiolog y, will recheck labs and with h/o c dif colitis will check stoolstudies.- Continue treatment with Pepc id 20 mg QD- Labs of CBC with Diff, CMP, Ferritin, Lipase, Stool for C diff and Stoolstudies- CBC + DIFF - LIPASE BLD- AMYLASE BLD- COMP METABOLIC PANEL- URINALYSIS WITH MICROSCOPIC- STOOL CULTURE/E IA2. Vomiting and diarrhea - ICD9: 787.03, 787.91, ICD10: R11.10, R19.7- Continue with Phenergan.- C. DIFFICILE PCR- CBC + DIFF- LIPASE BLD- AMYLASE BLD- COMP METABOLIC PANEL- STOOL CULTURE/EIA- OVA + PAR A Milagros Vargas, MSN CNPReferring Provider: SELF [200]Allergies As of Date: 09/30/2016 Noted Allergy ReactionLATEX 11/02/2013 14 - Other: See CommentsTAPE (ADHESIVE TAPE (ROSINS)) 11/02/2013 14 - Other: See CommentsVICODIN (HYDROCODONE- ACETAMINOPHE*02/02/2010 2 - RashZOCOR (SIMVASTATIN) 07/2015 17 - MyalgiaZOFRAN (ONDANSETRON HCL (PF)) 07/24/2011 14 - Other: See Comments Comments: Headaches Date Reviewed: 09/30/2016Reviewed by: Maira Goff LPN - Fully AssessedReason for Visit: ED Follow-up [821] Cmt: abdominal pain and diarrheaPrimary Visit Diagnosis:RUQ abdominal pain [R10.11] Othe r Visit Diagnosis:Vomiting and diarrhea [R11.10, R19.7]Order(s):C. DIFFICILE PCR [SQCDPCR] Order #: [id number] CBC + DIFF [SQCBCDIF] Order #: [id number] FUTURE LIPASE BLD [SQLIPA] Order #: [id number] FUTURE A MYLASE BLD [SQAMYL] Order #: [id number] FUTURE COMP METABOLIC PANEL [SQCMP] Order #: [id number] FUTURE U RINALYSIS WITH MICROSCOPIC [SQUAWMIC] Order #: [id number]. #:[id number] ST OOL CULTURE/EIA [SQSTOCUL] Order #: [id number] FUTURE OVA + PARA MICROSCOPIC [SQOVAP] Order #: [id number] Prescriptions as of 09/30/2016 Sig: PROMETHAZINE 25 MG TABLET Take 25 mg by mouth every 6 h* FLUTICASONE 200 MCG-VILANTERO* Inhale 1 Inhalation as instru* ALBUTEROL SULFATE HFA 90 MCG/* Inhale 2 Puffs as inst ructed * COMPOUNDED PRESCRIPTION Home nebulizer machine with a* ALBUTEROL SULFATE CONCENTRATE* Inhale 0.5 mL as instructed e* SUMATRIPTAN 25 MG TABLET Take 25 mg by mouth as needed. ATORVASTATIN 40 MG T ABLET Take 1 tablet by mouth once d* LEVETIRACETAM ER 750 MG TABLE* Take 1 tablet by mouth twice * TOPI RAMATE 200 MG TABLET Take 1 tablet by mouth twice * MULTIVITAMIN TABLET Take 1 tablet by mouth once d* PIRIN 81 MG TABLET Take 1 tablet by mouth once d*Problem List As Of Date 09/30/2016 Noted Resolved Ab dominal pain, right lower quadrant [R10.31] INVALID FOR*05/18/2015 Other and unspecified ovarian cyst [N8 3.209] INVALID FOR*05/18/2015 Cervical radiculopathy [M54.12] INVALID FOR*05/18/2015 Cervicalgia [ M54.2] INVALID FOR* Seizure disorder [G40.909] INVALID FOR* Irritable bowel syndrome with diarrhea [K58. 0] INVALID FOR* Mild intermittent asthma without complication [*INVALID FOR* Tobacco use disorder [F17.20 0] INVALID FOR* Chondral loose body of right knee joint [M23.41]INVALID FOR* Chronic pain of right knee [ M25.561, G89.29] INVALID FOR* Reactive depression [F32.9] INVALID FOR*Medications Discontinued During This Encounter pantoprazole DR (PROTONIX) 20 mg tab* 30 t* 0 06/20/2016 09/30/2016 Route: O RAL Sig: Take 1 tablet by mouth daily before breakfast. Take on empty stomach, 1/2 hr before meal. Disc: Discontinued by another Health Care ProviderEncounter Number: [id number] Status:Closed by WELLINGTON VARGSA MARKET EDITOR on 01/07 cbc and differential on 2016-09-30 Abs Baso 0.04 0.00-0.10 k/uL Normal 09-30-2016 [facility] ([id number]) Comment: Performed By: #### CBCDIF, A MYL, CMP, LIPA ####[facility] [place] [phone] Abs Ashley 0.56 0.00-0.86 k/uL Normal 09-30-2016 [facility] ([id number]) Comment: Performed By: #### CBCDIF, A MYL, CMP, LIPA ####[facility] [place] [phone] Abs Neut 6.20 1.45-7.50 k/uL Normal 09-30-2016 [facility] (43479) Comment: Performed By: #### CBCDIF, A MYL, CMP, LIPA ####[facility] [address] [place] [phone] Basophils/100 WBC Auto (Bld) 0.4 % Normal 0 09-30-2016 [facility] (83584) Comment: Performed By: #### CBCDIF, A MYL, CMP, LIPA ####[facility] [address] levelandChristy [place] [phone] DTYPE Auto Diff Normal 09-30-2016 [facility] (87546) Comment: Performed By: #### CBCDIF, A MYL, CMP, LIPA ####[facility] [place]andChrist[place] [phone] Eosinophils 0.12 0.00-0.45 k/uL Normal 09-30-2016 [facility] [place] (36922) Comment: Performed By: #### CBCDIF, A MYL, CMP, LIPA ####[place] [address] [place]Jac[place] [phone] Eosinophils/100 leukocytes 1.3 % Normal [facility] (34312) Comment: Performed By: #### CBCDIF, A MYL, CMP, LIPA ####[place] [address] [place]and[place] [phone] Erythrocyte distribution 12.3 11.5-15.0 % Normal 09-30 [facility] width Auto Ratio (RBC) [place] (16062) Comment: Performed By: #### CBCDIF, A MYL, CMP, LIPA ####[place] [address] [place] [phone] Erythrocytes (RBC) 4.56 3.90-5.20 m/uL Normal 09-30-2016 [facility] (86604) Comment: Performed By: #### CBCDIF, A MYL, CMP, LIPA ####[facility] [address] [place]andChrist[place] [phone] Erythrocytes (RBC) 0.00 k/uL Normal 09-30-2016 [facility] (90017) Comment: Performed By: #### CBCDIF, A MYL, CMP, LIPA ####[facility] [address] [place]and[place] [phone] Erythrocytes (RBC) 0.0 0 /100 WBC Normal 09-30-2016 [facility] (56522) Comment: Performed By: #### CBCDIF, A MYL, CMP, LIPA ####[place] [address] [place]and[place] [phone] Hematocrit (HCT) 42.8 36.0-46.0 % Normal 09-30-2016 [facility] (99925) Comment: Performed By: #### CBCDIF, A MYL, CMP, LIPA ####[place] [address] [place]and[place] [phone] Hemoglobin mass conc 14.1 11.5-15.5 g/dL Normal 7 [facility] ([facility] (12642) Comment: Performed By: #### CBCDIF, A MYL, CMP, LIPA ####[place] [address] [place] [phone] Lymphocytes 2.18 1.00-4.00 k/uL Normal 09-30-2016 [facility] (06978) Comment: Performed By: #### CBCDIF, A MYL, CMP, LIPA ####[place] [address] [place] [phone] Lymphocytes/100 leukocytes 24.0 % Normal [facility] (49587) Comment: Performed By: #### CBCDIF, A MYL, CMP, LIPA ####[place] [address] [place]and[place] [phone] MCH 30.9 26.0-34.0 pG Normal 09-30-2016 [facility] (80924) Comment: Performed By: #### CBCDIF, A MYL, CMP, LIPA ####[place] [address] [place]and[place] [phone] MCHC mass conc (RBC) 32.9 30.5-36.0 g/dL Normal 7 [facility] (15503) Comment: Performed By: #### CBCDIF, A MYL, CMP, LIPA ####[facility] [address] [place]andH[place], [place] [phone] MCV 93.9 80.0-100.0 fL Normal 09-30-2016 [facility] (22407) Comment: Performed By: #### CBCDIF, A MYL, CMP, LIPA ####[facility] [place]and[place] [phone] Monocytes/100 leukocytes 6.2 % Normal 09-30 [facility] (43229) Comment: Performed By: #### CBCDIF, A MYL, CMP, LIPA ####[place] [address] levelHay[place], [place] [phone] Neutrophils/100 WBC Auto (Bld) 68.1 % Normal 09-30-2016 [facility] (41912) Comment: Performed By: #### CBCDIF, A MYL, CMP, LIPA ####[facility] [place], [place] [phone] Platelet mean volume (PMV) 12.8 9.0-12.7 fL High [facility] (32335) Comment: Performed By: #### CBCDIF, A MYL, CMP, LIPA ####[facility] [address] [place] [phone] Platelets 227 150-400 k/uL Normal 09-30-2016 [facility] (71263) Comment: Performed By: #### CBCDIF, A MYL, CMP, LIPA ####[facility] [place]Hay[place], [place] [phone] WBC (Leukocytes) 9.10 3.70-11.00 k/uL Normal 09-30-2016 [facility] (24443) Comment: Performed By: #### CBCDIF, A MYL, CMP, LIPA ####[facility] [place], [place] [phone] amylase on Amylase 33 30-104 U/L Normal 09-30-2016 [facility] (19972) Comment: Performed By: #### CBCDIF, A MYL, CMP, LIPA ####[facility] Ltdhqwtoib[address] [place], [place] [phone] patient summary documents on 2016-09-28 Patient Summary Documents Normal -2016 [facility] ([id number]) lipase on 8 Lipase 78 73-393 U/L Normal 09-28-2016 [facility] ([id number]) Comment: Order Comment: CBN Performed By: #### UA ####[facility], [address] [place] [address] glomerular filtration rate estimate on 2016-09-28 eGFR (non-black) >60 mL/min/{1.73_m2} Normal 2016 [facility] ([id number]) Comment: Order Comment: CBN Result Comment: Population m broderick GFR = 99 mL/min/1.73 sq.m. for ages 40-49 years. Chronic Kidney Diseas e: Less than 60 mL/min/1.73 square metersEnd Stage Renal Disease: Less th an 15 mL/min/1.73 square meters Performed By: #### UA ####[facility], [facility] [address] [place] [address] ed note-provider on 2016-09-28 ED Note-Provider Normal 09-28-2016 [facility] ([id number]) ED Note-Provider Normal 09-28-2016 [facility] ([id number]) comp. metabolic panel on 2016-09-28 Alk. Phosphatase 128 38-126 U/L High 09-28-2016 [facility] ([id number]) Comment: Order Comment: CBN Performed By: #### UA ####[facility], [address] [place] [address] Albumin/Globulin Ratio 1.0 0.9-1.6 {ratio} Normal 017 [facility] ([id number]) Comment: Order Comment: CBN Performed By: #### UA ####[facility], [address] [place] [address] 35396 Bilirubin (direct) 0.4 0.2-1.2 mg/dL Normal 09-28-2016 [facility] ([id number]) Comment: Order Comment: CBN Performed By: #### UA ####[facility], [address] [place] [address] 13262 BUN/Creatinine Ratio 9.7 10.0-22.0 mg/mg Low 7 [facility] ([id number]) Comment: Order Comment: CBN Performed By: #### UA ####[facility], [address] [place] [address] 35150 Creatinine 0.72 0.50-1.20 mg/dL Normal 09-28-2016 [facility] ([id number]) Comment: Order Comment: CBN Performed By: #### UA ####[facility], [facility] [address] [place] [address] 48943 Globulin 3.4 1.5-3.8 G/dL Normal 09-28-2016 [facility] ([id number]) Comment: Order Comment: CBN Performed By: #### UA ####[facility], [address] [place] [address] 16559 T. Protein 6.9 6.0-8.5 G/dL Normal 09-28-2016 [facility] ([id number]) Comment: Order Comment: CBN Performed By: #### UA ####[facility], [address] [place] [address] 37416 Alanine aminotransferase (ALT) 20 10-49 U/L Normal 09-28-2016 [facility] ([id number]) Comment: Order Comment: CBN Performed By: #### UA ####[facility], [facility] [address] [place] [address] 04705 Aspartate aminotransferase 13 8-34 U/L Normal [facility] ([facility] (83641) Comment: Order Comment: CBN Performed By: #### UA ####[facility], [address] [place] [address] 59888 Glucose mass conc 86 70-110 mg/dL Normal 09-28-2016 [facility] (46752) Comment: Order Comment: CBN Performed By: #### UA ####[facility], [address] [place] [address] 55853 Urea nitrogen 7.0 8.0-22.0 mg/dL Low 09-28-2016 [facility] ([id number]) Comment: Order Comment: CBN Performed By: #### UA ####[facility], [facility] [address] [place] [address] 74104 Albumin 3.5 3.2-4.8 G/dL Normal 09-28-2016 [facility] (03084) Comment: Order Comment: CBN Performed By: #### UA ####[facility], [address] [place] [address] 76755 Calcium 9.4 8.4-10.1 mg/dL Normal 09-28-2016 [facility] (20939) Comment: Order Comment: CBN Performed By: #### UA ####[facility], [address] [place] [address] 68402 CO2 27 22-32 mEq/L Normal 09-28-2016 [facility] (28518) Comment: Order Comment: CBN Performed By: #### UA ####[facility], [address] [place] [address] 18006 Electrolyte Balance 7.0 4.0-15.0 mEq/L Normal 09-28-2016 [facility] ([id number]) Comment: Order Comment: CBN Performed By: #### UA ####[facility], [address] [place] [address] 51042 Chloride 107 98-110 mEq/L Normal 09-28-2016 [facility] ([id number]) Comment: Order Comment: CBN Performed By: #### UA ####[facility], [address] [place] [address] 32915 Potassium molar conc 3.6 3.5-5.0 mEq/L Normal 7 [facility] (41776) Comment: Order Comment: CBN Performed By: #### UA ####[facility], [address] [place] [address] 24509 Sodium 141 136-145 mEq/L Normal 09-28-2016 [facility] ([id number]) Comment: Order Comment: CBN Performed By: #### UA ####[facility], [address] [place] [address] 01530 cbc on 2016-09-28 Basophils/100 WBC Auto (Bld) 0.8 0.0-2.5 % Normal 0 09-28-2016 [facility] ([id number]) Comment: Order Comment: CBN Performed By: #### CBC ####A [address] [address] Eosinophils/100 leukocytes 1.6 0.0-6.0 % Normal [facility] ([id number]) Comment: Order Comment: CBN Performed By: #### CBC ####A [facility], [address] [place] [address] 69208 Erythrocyte distribution 13.1 11.5-15.5 % Normal 09-28 [facility] Auto Ratio (RBC) [facility] (06680) Comment: Order Comment: CBN Performed By: #### CBC ####A [address] [address] Erythrocytes (RBC) 4.27 4.10-5.30 10 6/mcL Normal 09-28-2016 [facility] (50627) Comment: Order Comment: CBN Performed By: #### CBC ####A [address] [address] Hematocrit (HCT) 38.6 34.0-46.0 % Normal 09-28-2016 [facility] (73570) Comment: Order Comment: CBN Performed By: #### CBC ####A [facility], [address] [place] [address] 76855 Hemoglobin mass conc 13.3 12.0-16.0 G/dL Normal [address] [place] [address] ([facility]) [facility] (85303) Comment: Order Comment: CBN Performed By: #### CBC ####A [facility], [address] [place] [address] 87090 Lymphocytes/100 leukocytes 38.4 20.0-40.0 % Normal [facility] (08235) Comment: Order Comment: CBN Performed By: #### CBC ####A [address] [address] MCH 31.2 27.0-33.0 pg Normal 09-28-2016 [facility] (04196) Comment: Order Comment: CBN Performed By: #### CBC ####A [facility], [address] [place] [address] 91364 MCHC mass conc (RBC) 34.5 32.0-36.0 G/dL Normal [address] [place] [address] ([id number]) Comment: Order Comment: CBN Performed By: #### CBC ####A [address] [address] MCV 90.5 80.0-99.0 fL Normal 09-28-2016 [facility] ([id number]) Comment: Order Comment: CBN Performed By: #### CBC ####A [facility], [address] [place] [address] 16261 Monocytes/100 leukocytes 7.9 2.0-13.0 % Normal 09-28 [facility] (74481) Comment: Order Comment: CBN Performed By: #### CBC ####A [facility], [address] [place] [address] 13178 Neutrophils 3.40 1.90-7.90 10 3/mcL Normal 09-28-2016 [facility] ([id number]) Comment: Order Comment: CBN Performed By: #### CBC ####A [facility], [address] [place] [address] 67075 Neutrophils/100 WBC Auto 51.3 50.0-75.0 % Normal 09-28 [facility] (Bld) [facility] (52982) Comment: Order Comment: CBN Performed By: #### CBC ####A [facility], [address] [place] [address] 56588 Platelet mean volume 10.0 6.6-10.5 fL Normal 7 [facility] ([facility]) (10983) Comment: Order Comment: CBN Performed By: #### CBC ####A [facility], [address] [place] [address] 31801 Platelets 181 150-450 10 3/mcL Normal 09-28-2016 [facility] (06571) Comment: Order Comment: CBN Performed By: #### CBC ####A [facility], [facility] [address] [place] [address] 53103 WBC (Leukocytes) 6.60 4.50-10.80 10 3/mcL Normal 09-28-2016 A [facility] (68566) Comment: Order Comment: CBN Performed By: #### CBC ####A [facility], [address] [place] [address] 37329 us abdomen limited on 2016-09-25 US ABDOMEN ORIGINALULTRASOUND ABDOMEN Normal [facility] LIMITED LIMITED CLINICAL STATEMENT: [facility] Abdominal pain, (000 00) nausea/vomiting/diarrhea, right flank pain, right upper quadrant and right CVA tenderness on exam COMPARISON: CT abdomen/pelvis 06/19/2016, limited abdominal ultrasound 10/06/2014 FINDINGS: The liver is normal in size, contour, and echotexture. No hepatic mass or biliary ductal dilatation is identified. The gallbladder is adequately distended and demonstrates no wall thickening or shadowing stones. There is a phrygian cap gallbladder. The common duct measures 3 mm. The sonographic Hernandez?s sign was not reported. The right kidney is normal in size and echotexture measuring 11.4 x 4.9 x 4.3 cm. The bladder is unremarkable. The visualized portion of the aorta is unremarkable. The visualized portions of the pancreas are normal. There is no free fluid in the right upper quadrant. IMPRESSION: No acute findings on ultrasound. I have personally reviewed the images of this examination and agree with the resident's findings and interpretation. Interpreted By: Rolf Trivedi DOPreliminary Report By: Corinna Irene DOElectronically Signed By: Rolf Trivedi DO Dictated Date: 09/24/2016 11:53:32 PM Prelim Date: 09/25/2016 12:00:16 AM Sign Date: 09/25/2016 12:07:47 AM urinalysis on 09-25 Bilirubin (total) NEGATIVE NEG - TRACE mg/dL Normal 09-25-2016 [facility] ([id number]) Comment: Order Comment: CBN Performed By: #### UA ####[address] [address] Glucose mass conc NEGATIVE NEGATIVE mg/dL Normal 09-25-2016 [facility] (29482) Comment: Order Comment: CBN Performed By: #### UA ####[facility], [address] [place] [address] 87516 Hemoglobin mass conc NEGATIVE NEG - TRACE g/dL Normal [address] [place] [address] ([facility]) [facility] (61355) Comment: Order Comment: CBN Performed By: #### UA ####[facility], [address] [place] [address] 95618 pH of blood 7.5 5.0 - 8.0 [pH] Normal 09-25-2016 [facility] (08769) Comment: Order Comment: CBN Performed By: #### UA ####[place] [address] [place] [address] 52006 Protein NEGATIVE NEG - TRACE g/dL Normal 09-25-2016 [facility] ([id number]) Comment: Order Comment: CBN Performed By: #### UA ####[facility], [facility] [address] [place] [address] 15140 Urine, appearance CLEAR CLEAR Normal 09-25-2016 A [facility] (41789) Comment: Order Comment: CBN Performed By: #### UA ####[facility], [address] [place] [address] 05282 Urine, color STRAW Normal 09-25-2016 [facility] (63206) Comment: Order Comment: CBN Performed By: #### UA ####[facility], [address] [place] [address] 98663 Urine, ketones NEGATIVE NEG - TRACE Normal 09-25-2016 [facility] (85756) Comment: Order Comment: CBN Performed By: #### UA ####[facility], [address] [place] [address] 23237 Urine, nitrite presence NEGATIVE NEGATIVE Normal 2016 [facility] ([id number]) Comment: Order Comment: CBN Performed By: #### UA ####[facility], [address] [place] [address] 09719 Urine, specific gravity 1.015 1.006-1.029 Normal [facility] (87774) Comment: Order Comment: CBN Performed By: #### UA ####[facility], [address] [place] [address] 92403 Urine, urobilinogen 1.0 0.2 - 1.0 E.U./dL Normal 09-25-2016 [facility] (29544) Comment: Order Comment: CBN Performed By: #### UA ####[facility], [address] [place] [address] 44066 WBC (Leukocytes) SMALL NEGATIVE Abnormal 09-25-2016 [facility] (52078) Comment: Order Comment: CBN Performed By: #### UA ####[facility], [address] [place] [address] 38107 Specimen type (u) U CleanCatch Normal [facility] (84717) Comment: Order Comment: CBN Performed By: #### UA ####[facility], [address] [place] [address] 35479 urinalysis microscopics on 2016-09-25 Erythrocytes (RBC) 0-2 0 - 2 Normal 09-25-2016 [facility] ([id number]) Comment: Order Comment: CBN Performed By: #### UAMIC ### #[facility], [address] [place] [address] Squamous Epi 3-5 0 - 20 Normal 09-25-2016 [facility] (25367) Comment: Order Comment: CBN Performed By: #### UAMIC ### #[facility], [address] [place] [address] 16464 Urine, bacteria in TRACE NEGATIVE Abnormal 09-25-2016 [facility] sediment (47986) Comment: Order Comment: CBN Performed By: #### UAMIC ### #[facility], [address] [place] [address] 44110 WBC (Leukocytes) 3-5 0 - 5 Normal 09-25-2016 [facility] ([id number]) Comment: Order Comment: CBN Performed By: #### UAMIC ### #[facility], [address] [place] [address] 48585 patient summary documents on 2016-09-25 Patient Summary Documents Normal [facility] ([id number]) lipase on 5 Lipase 132 73-393 U/L Normal 09-25-2016 [facility] (65469) Comment: Order Comment: CBN Performed By: #### LIP ####A [facility], [address] [place] [address] 03571 glomerular filtration rate estimate on 2016-09-25 eGFR (non-black) >60 mL/min/{1.73_m2} Normal 2016 [facility] ([id number]) Comment: Order Comment: CBN Performed By: #### GFR ####A [facility], [address] [place] [address] 96462 Result Comment: Population broderick GFR = 99 mL/min/1.73 sq.m. for ages 40-49 years. Chronic Kidney Diseas e: Less than 60 mL/min/1.73 square metersEnd Stage Renal Disease: Less th an 15 mL/min/1.73 square meters ed note-provider on 2016-09-25 ED Note-Provider Normal 09-25-2016 [facility] (49595) comp. metabolic panel on 2016-09-25 Alk. Phosphatase 127 38-126 U/L High 09-25-2016 [facility] (46886) Comment: Order Comment: CBN Performed By: #### CMP ####A [facility], [address] [place] [address] Albumin/Globulin Ratio 1.2 0.9-1.6 {ratio} Normal 017 [facility] (16283) Comment: Order Comment: CBN Performed By: #### CMP ####A [place] [id number] Bilirubin (direct) 0.1 0.2-1.2 mg/dL Low 09-25-2016 [facility] (92577) Comment: Order Comment: CBN Performed By: #### CMP ####A [place] [id number] Globulin 3.2 1.5-3.8 G/dL Normal 09-25-2016 [facility] (38306) Comment: Order Comment: CBN Performed By: #### CMP ####A [facility], [address] [place] [address] 34995 T. Protein 7.0 6.0-8.5 G/dL Normal 09-25-2016 [facility] (28059) Comment: Order Comment: CBN Performed By: #### CMP ####A [address] [address] Aspartate aminotransferase 11 8-34 U/L Normal [facility] (AST) [facility] (74526) Comment: Order Comment: CBN Performed By: #### CMP ####A [facility], [address] [place] [address] 81540 Alanine aminotransferase (ALT) 20 10-49 U/L Normal 09-25-2016 [facility] (60803) Comment: Order Comment: CBN Performed By: #### CMP ####A [facility], [facility] [address] [place] [address] BUN/Creatinine Ratio 13.7 10.0-22.0 mg/mg Normal 7 [facility] (24086) Comment: Order Comment: CBN Performed By: #### CMP ####A [facility], [address] [place] [address] Creatinine 0.73 0.50-1.20 mg/dL Normal 09-25-2016 [facility] (85135) Comment: Order Comment: CBN Performed By: #### CMP ####A [facility], [address] [place] [address] CO2 27 22-32 mEq/L Normal 09-25-2016 [facility] (75247) Comment: Order Comment: CBN Performed By: #### CMP ####A [facility], [address] [place] [address] Electrolyte Balance 5.0 4.0-15.0 mEq/L Normal 09-25-2016 [facility] (38542) Comment: Order Comment: CBN Performed By: #### CMP ####A [facility], [address] [place] [address] Glucose mass conc 93 70-110 mg/dL Normal 09-25-2016 [facility] (08226) Comment: Order Comment: CBN Performed By: #### CMP ####A [facility], [address] [place], [place] [address]10 Urea nitrogen 10.0 8.0-22.0 mg/dL Normal 09-25-2016 [facility] (15705) Comment: Order Comment: CBN Performed By: #### CMP ####A [facility], [address] [place], [place] [address]10 Albumin 3.8 3.2-4.8 G/dL Normal 09-25-2016 [facility] (15585) Comment: Order Comment: CBN Performed By: #### CMP ####A [facility], [address] [place] [address] 93458 Calcium 9.0 8.4-10.1 mg/dL Normal 09-25-2016 [facility] (79342) Comment: Order Comment: CBN Performed By: #### CMP ####A [facility], [address] [place] [address] 95874 Chloride 109 98-110 mEq/L Normal 09-25-2016 [facility] (71659) Comment: Order Comment: CBN Performed By: #### CMP ####A [facility], [address] [place] [address] 23151 Potassium molar conc 4.0 3.5-5.0 mEq/L Normal 7 [facility] ([id number]) Comment: Order Comment: CBN Performed By: #### CMP ####A [facility], [address] [place] [address] 12905 Sodium 141 136-145 mEq/L Normal 09-25-2016 [facility] (61859) Comment: Order Comment: CBN Performed By: #### CMP ####A [facility], [address] [place] [address] 36895 cnpn on 2016-09-25 CNPN Telephone Normal 09-25-2016 [place] (FAMPWS) --------CHELLE DUVALL Clin ic ([id number]) 1975 FDate Time Provider Department09/25/16 MARK BEDOLLA III During your visit Paul smith today, we recorded the follo wing information about you:Prabhu Suero FILLER MACHINE OPERATOR 09/25/2016 3:36 PM SignedPatient ([id number]) was in [place] in [facility] t night for upper right abdominal pain.While she was there, they did an US and told her she could have gallstones orkidney stones, but nothing was definite. She was given morphine and phenerganthat eased her pain and nausea some. She was told to use ibuprofen or Tylenolfor the pain but she is not getting any r elief. ANDquot;It's to the point where Ican barely move.ANDquot; She has been vomiting and having jasmin rrhea. Reports thatpain is constant. She did not get any medications upon D/C. She was told to kae/brennon in 2-3 days. Unable to come for open appt tomorrow with PCP because [facility] not have a cab driver. Advised h er to stay hydrated and if pain worsens to goback to ER. Please review and advise.Mark Bedolla III MD 09/25/2016 6:55 PM SignedStaff please try to get [facility] to verify the patient'sstory . Continue with ibuprofen or Tylenol as needed for pain.Mark Bedolla III, MD, FAAFPBrittvahe Kc Ma 09/26/2016 8:[address] [facility]. Will wait to receive records.Mitzi Kc Ma 09/27/2016 9:44 AM SignedRecords received. Placed on PCP desk for review.Delisa alcaraz RN 09/27/2016 3:36 PM SignedPatient calling back, abdominal pain worse with now watery stools. Patientst ates ultrasound was negative but no other testing and she reports that shehas a fever that comes an d goes and she is barely eating anything. Drinkingsprite today. Advised ER at this time, as PCP is out of office today, patient agreeable andstated she would return to [facility]. Scheduled ER follow up with ADRIAN Cooper this 09/30/16.BHARGAV Anna CNP 09/27/2016 3:50 PM Sig nedNoted.BHARGAV Junior CNPFrroro Bedolla III MD 09/27/2016 8:12 PM SignedNotedFrroro Bedolla III, MD, FAAFPAllergies As of Date: 09/25/2016 Noted Allergy ReactionLATEX 11/02/2013 14 - Other: See C ommentsTAPE (ADHESIVE TAPE (ROSINS)) 11/02/2013 14 - Other: See CommentsVICODIN (HYDROCODONE -ACETAMINOPHE*02/02/2010 2 - RashZOCOR (SIMVASTATIN) 03/28/2015 17 - MyalgiaZOFRAN (ONDANSETRON H CL (PF)) 07/24/2011 14 - Other: See Comments Comments: HeadachesDate Reviewed: 06/20/2016Reviewed by: Saadia Beltran Student - Fully AssessedReason for Visit: Abdominal Pain [1]Prescriptions as of 09/25 Sig: PANTOPRAZOLE 20 MG TABLET,DEL* Take 1 tablet by mouth daily * FLUTICASONE 200 MCG-VILANTER O* Inhale 1 Inhalation as instru* ALBUTEROL SULFATE HFA 90 MCG/* Inhale 2 Puffs as instructed * COMPOU NDED PRESCRIPTION Home nebulizer machine with a* ALBUTEROL SULFATE CONCENTRATE* Inhale 0.5 mL a s instructed e* SUMATRIPTAN 25 MG TABLET Take 25 mg by mouth as needed. ATORVASTATIN 40 MG TABLET Ta ke 1 tablet by mouth once d* LEVETIRACETAM ER 750 MG TABLE* Take 1 tablet by mouth twice * TOPIRAMATE 200 MG TABLET Take 1 tablet by mouth twice * MULTIVITAMIN TABLET Take 1 tablet by mouth once d* ASPIRIN 81 MG TABLET Take 1 tablet by mouth once d*Problem List As Of Date 09/25/2016 Noted Resolved Abdominal sarah n, right lower quadrant [R10.31] INVALID FOR*05/18/2015 Other and unspecified ovarian cyst [N8 3.209] INVALID FOR*05/18/2015 Cervical radiculopathy [M54.12] INVALID FOR*05/18/2015 Cervicalgia [ M54.2] INVALID FOR* Seizure disorder [G40.909] INVALID FOR* Irritable bowel syndrome with diarrhea [K58. 0] INVALID FOR* Mild intermittent asthma without complication [*INVALID FOR* Tobacco use disorder [F17.20 0] INVALID FOR* Chondral loose body of right knee joint [M23.41]INVALID FOR* Chronic pain of right knee [ M25.561, G89.29] INVALID FOR* Reactive depression [F32.9] INVALID FOR* 976Encounter Status:Closed by WELLINGTON VARGAS MARKET EDITOR on 09/27/16 cbc on 2016-09-25 Basophils/100 WBC Auto (Bld) 0.8 0.0-2.5 % Normal 0 09-25-2016 [facility] ([id number]) Comment: Order Comment: CBN Performed By: #### CBC ####A [facility], [address] [place] [address] Eosinophils/100 leukocytes 2.0 0.0-6.0 % Normal [facility] (74665) Comment: Order Comment: CBN Performed By: #### CBC ####[place] [address] Erythrocyte distribution 13.3 11.5-15.5 % Normal 09-25 [facility] width Auto Ratio (RBC) [facility] (59121) Comment: Order Comment: CBN Performed By: #### CBC ####A [place] [id number] Erythrocytes (RBC) 4.25 4.10-5.30 10 6/mcL Normal 09-25-2016 [facility] ([id number]) Comment: Order Comment: CBN Performed By: #### CBC ####A [address] [address] Hematocrit (HCT) 38.7 34.0-46.0 % Normal 09-25-2016 [facility] (79981) Comment: Order Comment: CBN Performed By: #### CBC ####A [place] [id number] Hemoglobin mass conc 13.1 12.0-16.0 G/dL Normal [facility] (Bld) [facility] (07378) Comment: Order Comment: CBN Performed By: #### CBC ####A [address] [address] Lymphocytes/100 leukocytes 45.6 20.0-40.0 % High [facility] (09503) Comment: Order Comment: CBN Performed By: #### CBC ####A [facility], [address] [place] [address] 86704 MCH 30.9 27.0-33.0 pg Normal 09-25-2016 [facility] (77748) Comment: Order Comment: CBN Performed By: #### CBC ####A [facility], [address] [place] [address] 56663 MCHC mass conc (RBC) 33.9 32.0-36.0 G/dL Normal 7 [facility] (30923) Comment: Order Comment: CBN Performed By: #### CBC ####A [address] [address] MCV 91.2 80.0-99.0 fL Normal 09-25-2016 [facility] (83133) Comment: Order Comment: CBN Performed By: #### CBC ####A [address] [address] Monocytes/100 leukocytes 8.3 2.0-13.0 % Normal 09-25 [facility] (77337) Comment: Order Comment: CBN Performed By: #### CBC ####A [address] [address] Neutrophils 2.50 1.90-7.90 10 3/mcL Normal 09-25-2016 [facility] (93771) Comment: Order Comment: CBN Performed By: #### CBC ####A [address] [address] Neutrophils/100 WBC Auto 43.3 50.0-75.0 % Low 09-25 [facility] (d) [facility] (63111) Comment: Order Comment: CBN Performed By: #### CBC ####A [facility], [address] [place] [address] Platelet mean volume 10.0 6.6-10.5 fL Normal [facility] ([id number]) Comment: Order Comment: CBN Performed By: #### CBC ####A [facility], [address] [place] [address] Platelets 175 150-450 10 3/mcL Normal 09-25-2016 [facility] ([id number]) Comment: Order Comment: CBN Performed By: #### CBC ####A [facility], [address] [place] [id number] WBC (Leukocytes) 5.90 4.50-10.80 10 3/mcL Normal 09-25-2016 A [facility] ([id number]) Comment: Order Comment: CBN Performed By: #### CBC ####A [facility], [facility] [address] [place] [id number] Encounters Date Type Reason Provider Location 01-07-2017 - Ambulatory [facility] SHEPPARD [facility] 01-08-2017 [facility] ([phone]) [facility] 01-03-2017 - Ambulatory [facility] CRANE[facility] 01-06-2017 [facility] (0000 0) 12-26-2016 - Ambulatory MARK A [facility] 12-27-2016 [facility] (0000 0) 11-18-2016 - Ambulatory MARK A [facility] III [facility] 11-19-2016 [facility] (0000 0) 10-02-2016 - Ambulatory MARK A [facility] III [facility] 10-02-2016 [facility] Alcar[facility] ([employer] FRIER) [facility] (0000 0) [facility] 09-30-2016 - Ambulatory [facility] Alcaraz ([employer] FRIER) [facility] 10-01-2016 [facility] (0000 0) 09-25-1998 - Ambulatory HOUSE OB HOUSE OB Facility:[facility]us[facility] 09-26-1998 Shree Hodges [facility] 09-27-2016 - Emergency department MARK Savage III [facility] Fa cility:[facility] 09-28-2016 patient visit [facility] MARK A III [facility] 09-24-2016 - Emergency department ABD PAIN / NO DX LEE ROJAS Facility:[facility] 09-25-2016 patient visit [facility] Hussein III [place] Payers Payer Name Policy Number Ubaldo WASHINGTON [id number] [facility] ([id number]) [facility] ([id number]) The following information is from the original human readable contentNo Payer Records FoundNo Payer Records FoundNo Payer Records Found Summary Purpose Family History No Family History Records FoundNo Family History Records FoundNo Family History Records FoundNo Family History Records Found Advance Directives No Advanced Directives Records FoundNo Advanced Directives Records FoundNo Advanced Directives Records FoundNo Advanced Directives Records Found Additional Source Comments FOR RECORDS PERTAINING TO PATIENTS WHO ARE OR HAVE BEEN ENROLLED IN A CHEMICAL DEPENDENCY/SUBSTANCE ABUSE PROGRAM, SOME INFORMATION MAY BE OMITTED. This clinical summary was aggregated from multiple sources. Caution should be exercised in using it in the provision of clinical care. This summary normalizes information from multiple sources, and as a consequence, information in this document may materially changethe coding, format and clinical context of patient data. In addition, data may be omittedin some cases. CLINICAL DECISIONS SHOULD BE BASED ON THE PRIMARY CLINICAL RECORDS. [facility] provides no warranty or guarantee of the accuracy or completeness of information in this document. UNRECOGNIZED CONTENT PROVIDED BELOW FOR UNRECOGNIZED SECTION INFORMATION SOURCE DATE CREATED AUTHOR AUTHOR'S ORGANIZATIO N 09/16/2017 [facility] DATE CREATED AUTHOR AUTHOR'S ORGANIZATIO N 09/16/2017 [facility] DATE CREATED AUTHOR AUTHOR'S ORGANIZATIO N 09/17/2017 [facility] DATE CREATED AUTHOR AUTHOR'S ORGANIZATIO N 01/08/2020 [facility] ([place])
== END ==
PROVIDERS: Referring Provider Orthopaedic Surgery; Visit Provider Orthopaedic Surgery
DX: M25.562 Pain in left knee (principal); M79.605 Pain in left leg
CPT/HCPCS: 72120; 73564